=== PATIENT | female | born 1935 | race Caucasian/White ===

== ENCOUNTER 2017-04-27 18:13 | Inpatient (IN) | payer MEDICARE, OTHER ==
[~2017-04-27] VITALS: Ht 170.2 cm; Wt 91.0 kg
[2017-04-27 18:23] VITALS: BP 201/116; PULSE 111; RESP 20; O2SAT 100
--- NOTE | 2017-04-27 18:41 | PD ---
HPI Chief Complaint: Altered Mental Status Time Seen by Provider: 18:27 Travel History International Travel<30 days: No Contact w/Intl Traveler<30days: No Traveled to known affect area: No History of Present Illness HPI 81- year old female brought to the ED by EVAC. Per EVAC the patient was found by her on the floor of the hotel. They report the said that the patient has not been feeling well for the past three days. Upon arrival EVAC reports that there was vomit all over the bed and the floor. The patient has a fever of 100.5, is combative and altered. The patient currently is unable to answer any questions. Per EVAC the patient's is on his way who will be able to answer more questions. [facility] Social History Alcohol Use: No Tobacco Use: No Substance Use: No Allergies-Medications (Allergen,Severity, Reaction): Coded Allergies: Unable to Assess (Verified Allergy, Unknown, 04/27/17) Reported Meds & Prescriptions Reported Meds & Active Scripts Active Reported Tramadol (Tramadol HCl) 50 Mg Tab 50 Mg PO Q8H PRN Aspirin 81 Mg Chew 81 Mg CHEW DAILY Hydrochlorothiazide 25 Mg Tab 25 Mg PO DAILY Lisinopril 40 Mg Tab 40 Mg PO DAILY Review of Systems ROS Limitations: Altered Mental Status, Combative General / Constitutional: Positive: Fever Eyes: No: Visual changes Gastrointestinal: Positive: Vomiting Physical Exam Exam Limitations: Altered Mental Status, Uncooperative, Combative Narrative GENERAL: SKIN: Warm and dry. HEAD: Atraumatic. Normocephalic. EYES: Pupils equal and round. No scleral icterus. No injection or drainage. ENT: No nasal bleeding or discharge. Mucous membranes pink and moist. Tongue is midline NECK: Trachea midline. No JVD. CARDIOVASCULAR: Regular rate and rhythm. RESPIRATORY: No accessory muscle use. Clear to auscultation. Breath sounds equal bilaterally. GASTROINTESTINAL: Abdomen soft, non-tender, nondistended. Hepatic and splenic margins not palpable. MUSCULOSKELETAL: Extremities without clubbing, cyanosis, or edema. No obvious deformities. 2+ pulses bilaterally. NEUROLOGICAL: Awake and alert but not oriented. No obvious cranial nerve deficits. Motor grossly within normal limits. Five out of 5 muscle strength in the arms and legs. Normal speech. PSYCHIATRIC: Combative, altered mental status, insight and judgment not present. Data Data Last Documented VS Vital Signs Date Time Temp Pulse Resp B/P (MAP) Pulse Ox O2 Delivery O2 Flow Rate FiO2 04/27/17 21:38 114 22 194/91 (125) Nasal Cannula 2.00 04/27/17 20:31 100.8 98 Orders Orders Electrocardiogram (04/27/17 18:27) Complete Blood Count With Diff (04/27/17 18:27) Comprehensive Metabolic Panel (04/27/17 18:27) Ckmb (Isoenzyme) Profile (04/27/17 18:27) Troponin I (04/27/17 18:27) Prothrombin Time / Inr (Pt) (04/27/17 18:27) Act Partial Throm Time (Ptt) (04/27/17 18:27) Blood Culture (04/27/17 18:27) Urinalysis - C+S If Indicated (04/27/17 18:27) Magnesium (Mg) (04/27/17 18:27) Thyroid Stimulating Hormone (04/27/17 18:27) Chest, Single Ap (04/27/17 18:27) Ct Brain W/O Iv Contrast(Rout) (04/27/17 18:27) Iv Access Insert/Monitor (04/27/17 18:27) Ecg Monitoring (04/27/17 18:27) Oximetry (04/27/17 18:27) Drug Screen, Random Urine (04/27/17 18:27) Alcohol (Ethanol) (04/27/17 18:27) Salicylates (Aspirin) (04/27/17 18:27) Tylenol (Acetaminophen) (04/27/17 18:27) Lactic Acid Sepsis Protocol (04/27/17 18:51) Sodium Chlor 0.9% 1000 Ml Inj (Ns 1000 M (04/27/17 18:52) Lorazepam Inj (Ativan Inj) (04/27/17 19:15) Cath For Specimen (04/27/17 19:29) Sodium Chlor 0.9% 1000 Ml Inj (Ns 1000 M (04/27/17 19:47) Sodium Chlor 0.9% 1000 Ml Inj (Ns 1000 M (04/27/17 19:47) Bedside Glucose GILLIAN.AC&HS (04/27/17 19:46) Haloperidol Inj (Haldol Inj) (04/27/17 20:00) Acetaminophen Supp (Tylenol Supp) (04/27/17 20:00) Piperacil-Tazo 3.375 Gm Premix (Zosyn 3. (04/27/17 20:00) Vancomycin Inj (Vancomycin Inj) (04/27/17 20:00) CKMB (04/27/17 18:40) CKMB% (04/27/17 18:40) Ct Abd/Pel W/O Iv Contrast (04/27/17 ) Urinary Catheter Insert/Apply (04/27/17 21:13) Hydralazine Inj (Apresoline Inj) (04/27/17 22:00) Admit Order (Ed Use Only) (04/27/17 21:56) Labs Laboratory Tests Test 04/27/17 18:40 04/27/17 18:55 04/27/17 19:40 White Blood Count 12.0 TH/MM3 Red Blood Count 4.28 MIL/MM3 Hemoglobin 11.2 GM/DL Hematocrit 36.4 % Mean Corpuscular Volume 84.9 FL Mean Corpuscular Hemoglobin 26.1 PG Mean Corpuscular Hemoglobin Concent 30.8 % Red Cell Distribution Width 17.0 % Platelet Count 309 TH/MM3 Mean Platelet Volume 8.8 FL Neutrophils (%) (Auto) 85.6 % Lymphocytes (%) (Auto) 9.2 % Monocytes (%) (Auto) 4.6 % Eosinophils (%) (Auto) 0.0 % Basophils (%) (Auto) 0.6 % Neutrophils # (Auto) 10.3 TH/MM3 Lymphocytes # (Auto) 1.1 TH/MM3 Monocytes # (Auto) 0.6 TH/MM3 Eosinophils # (Auto) 0.0 TH/MM3 Basophils # (Auto) 0.1 TH/MM3 CBC Comment DIFF FINAL Differential Comment Prothrombin Time 10.9 SEC Prothromb Time International Ratio 1.0 RATIO Activated Partial Thromboplast Time 22.8 SEC Blood Urea Nitrogen 23 MG/DL Creatinine 2.25 MG/DL Random Glucose 129 MG/DL Total Protein 7.5 GM/DL Albumin 3.7 GM/DL Calcium Level 9.9 MG/DL Magnesium Level 2.0 MG/DL Alkaline Phosphatase 85 U/L Aspartate Amino Transf (AST/SGOT) 30 U/L Alanine Aminotransferase (ALT/SGPT) 14 U/L Total Bilirubin 0.5 MG/DL Sodium Level 139 MEQ/L Potassium Level 4.8 MEQ/L Chloride Level 103 MEQ/L Carbon Dioxide Level 23.7 MEQ/L Anion Gap 12 MEQ/L Estimat Glomerular Filtration Rate 21 ML/MIN Total Creatine Kinase 192 U/L Creatine Kinase MB 1.6 NG/ML Troponin I 0.16 NG/ML Thyroid Stimulating Hormone 3rd Gen 0.851 uIU/ML Salicylates Level LESS THAN 1.7 MG/DL Acetaminophen Level LESS THAN 2.0 MCG/ML Ethyl Alcohol Level LESS THAN 3 MG/DL Lactic Acid Level 3.2 mmol/L Urine Color YELLOW Urine Turbidity CLEAR Urine pH 7.5 Urine Specific [place] 1.017 Urine Protein 300 mg/dL Urine Glucose (UA) NEG mg/dL Urine Ketones 40 mg/dL Urine Occult Blood SMALL Urine Nitrite NEG Urine Bilirubin NEG Urine Urobilinogen LESS THAN 2.0 MG/DL Urine Leukocyte Esterase NEG Urine RBC 1 /hpf Urine WBC LESS THAN 1 /hpf Urine Bacteria RARE /hpf Urine Hyaline Casts 2 /lpf Urine Mucus FEW /lpf Microscopic Urinalysis Comment CULT NOT INDICATED Urine Opiates Screen NEG Urine Barbiturates Screen NEG Urine Amphetamines Screen NEG Urine Benzodiazepines Screen NEG Urine Cocaine Screen NEG Urine Cannabinoids Screen NEG MDM Medical Decision Making Medical Screen Exam Complete: Yes Emergency Medical Condition: Yes Medical Record Reviewed: Yes Interpretation(s) CBC & BMP Diagram 04/27/17 18:40 Total Protein 7.5, Albumin 3.7, Calcium Level 9.9, Magnesium Level 2.0, Alkaline Phosphatase 85, Aspartate Amino Transf (AST/SGOT) 30, Alanine Aminotransferase (ALT/SGPT) 14, Total Bilirubin 0.5 lactic acid in the 3s CT head showed no sign of acute disease CXR showed no acute disease troponin elevated CK WNL Differential Diagnosis Syncope versus UTI versus AMS versus Stroke versus Sepsis versus KS versus electrolyte abnormality Narrative Course 81-year-old female that presents to the ED for evaluation of altered mental status. Patient was properly examined and was found to have signs and symptoms consistent with possible sepsis. Patient is very altered and uncooperative. Patient had to be sedated. My attending Dr. Diaz and Dr. Gomez evaluated the patient with me and agrees with plan. was able to calm and give us information about the patient being altered for the past 3 days but today having this fall but exacerbated adulteration agitation. 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 She was found to have a high fever. Alert and this didn't have any other information that she has a history of high blood pressure. Labs and imaging were done and labs and imaging so far have shown severe sepsis. Patient was given IV fluids and antibiotics as per my attendings recommendations. Imaging showed Sepsis Criteria SIRS Criteria (2 or more): Temp > 100.9 or < 96.8, Heart rate over 90, WBC > 40238, < 4000 or > 10% bands Sepsis Criteria (SIRS+source): Infect source susp/known Severe Sepsis (+one): Lactate >2 Criteria Outcome: Meets severe sepsis criteria Diagnosis Primary Impression: Sepsis Qualified Codes: A41.9 - Sepsis, unspecified organism Additional Impressions: Altered mental status Qualified Codes: R41.82 - Altered mental status, unspecified UTI (urinary tract infection) Qualified Codes: N30.00 - Acute cystitis without hematuria Elevated troponin José Miguel Guerin Apr 27, 2017 18:41
[2017-04-27] MEDS ORDERED: SODIUM CHLOR 0.9% 1000 ML INJ 1,000 ML IV SCH ×3 (18:52→19:47)
[2017-04-27 19:14] LABS: AUTOMATED NEUTROPHIL # 10.3 TH/MM3 (1.8-7.7); BASOPHIL # 0.1 TH/MM3 (0-0.2); BASOPHIL % 0.6 % (0.0-2.0); HEMATOCRIT 36.4 % (35.0-46.0); LYMPH % 9.2 % (9.0-44.0); LYMPHOCYTE # 1.1 TH/MM3 (1.0-4.8); MEAN CELL VOLUME 84.9 FL (80.0-100.0); MEAN CORPUSCULAR HEMOGLOBIN 26.1 PG (27.0-34.0); MEAN CORPUSCULAR HGB CONC 30.8 % (32.0-36.0); MONO % 4.6 % (0.0-8.0); NEUT % 85.6 % (16.0-70.0); PLATELET COUNT 309 TH/MM3 (150-450); RED BLOOD COUNT 4.28 MIL/MM3 (4.00-5.30)
[2017-04-27 19:15] LABS: HEMO FLAGS DIFF FINAL
[2017-04-27] MEDS ORDERED: LORazepam 2 MG/ML VIAL IV PUSH ONE (19:15)
[2017-04-27 19:35] LABS: APTT (PATIENT) 22.8 SEC (24.3-30.1); PROTHROMBIN TIME - PATIENT 10.9 SEC (9.8-11.6)
--- NOTE | 2017-04-27 19:42 | PD ---
Physical Exam Narrative I, Dr. Diaz, have reviewed the advance practice practitioner's documentation and am in agreement, met with the patient face to face, made the diagnosis, and the medical decision making was done by me. *My assessment and Findings: AMS secondary to UTI vs. electrolyte abnormality vs. ICH vs. hypertensive emergency 81yo F with unknown PMH was brought in for AMS for 3 days. As per EVAC, pt's was in hotel room with her and did not bring her in until she fell out of bed today. Pt has a right forehead hematoma. Pt is mumbling and not answering questions. Moving all extremities. is not here and unable to obtain further history. Pt has not been here before. BP was elevated but pt was moving around and will need to be repeated. Pt is maintaining airway and saturating at 100% on RA. Ativan 1mg IV given for CT. Pt was seen at end of my shift and sign out to next team to follow up work up and disposition. Data Data Last Documented VS Vital Signs Date Time Temp Pulse Resp B/P (MAP) Pulse Ox O2 Delivery O2 Flow Rate FiO2 04/27/17 21:38 114 22 194/91 (125) Nasal Cannula 2.00 04/27/17 20:31 100.8 98 Orders Orders Electrocardiogram (04/27/17 18:27) Complete Blood Count With Diff (04/27/17 18:27) Comprehensive Metabolic Panel (04/27/17 18:27) Ckmb (Isoenzyme) Profile (04/27/17 18:27) Troponin I (04/27/17 18:27) Prothrombin Time / Inr (Pt) (04/27/17 18:27) Act Partial Throm Time (Ptt) (04/27/17 18:27) Blood Culture (04/27/17 18:27) Urinalysis - C+S If Indicated (04/27/17 18:27) Magnesium (Mg) (04/27/17 18:27) Thyroid Stimulating Hormone (04/27/17 18:27) Chest, Single Ap (04/27/17 18:27) Ct Brain W/O Iv Contrast(Rout) (04/27/17 18:27) Iv Access Insert/Monitor (04/27/17 18:27) Ecg Monitoring (04/27/17 18:27) Oximetry (04/27/17 18:27) Drug Screen, Random Urine (04/27/17 18:27) Alcohol (Ethanol) (04/27/17 18:27) Salicylates (Aspirin) (04/27/17 18:27) Tylenol (Acetaminophen) (04/27/17 18:27) Lactic Acid Sepsis Protocol (04/27/17 18:51) Sodium Chlor 0.9% 1000 Ml Inj (Ns 1000 M (04/27/17 18:52) Lorazepam Inj (Ativan Inj) (04/27/17 19:15) Cath For Specimen (04/27/17 19:29) Sodium Chlor 0.9% 1000 Ml Inj (Ns 1000 M (04/27/17 19:47) Sodium Chlor 0.9% 1000 Ml Inj (Ns 1000 M (04/27/17 19:47) Bedside Glucose GILLIAN.AC&HS (04/27/17 19:46) Haloperidol Inj (Haldol Inj) (04/27/17 20:00) Acetaminophen Supp (Tylenol Supp) (04/27/17 20:00) Piperacil-Tazo 3.375 Gm Premix (Zosyn 3. (04/27/17 20:00) Vancomycin Inj (Vancomycin Inj) (04/27/17 20:00) CKMB (04/27/17 18:40) CKMB% (04/27/17 18:40) Ct Abd/Pel W/O Iv Contrast (04/27/17 ) Urinary Catheter Insert/Apply (04/27/17 21:13) Hydralazine Inj (Apresoline Inj) (04/27/17 22:00) Admit Order (Ed Use Only) (04/27/17 21:56) Labs Laboratory Tests Test 04/27/17 18:40 04/27/17 18:55 04/27/17 19:40 04/27/17 21:45 White Blood Count 12.0 TH/MM3 Red Blood Count 4.28 MIL/MM3 Hemoglobin 11.2 GM/DL Hematocrit 36.4 % Mean Corpuscular Volume 84.9 FL Mean Corpuscular Hemoglobin 26.1 PG Mean Corpuscular Hemoglobin Concent 30.8 % Red Cell Distribution Width 17.0 % Platelet Count 309 TH/MM3 Mean Platelet Volume 8.8 FL Neutrophils (%) (Auto) 85.6 % Lymphocytes (%) (Auto) 9.2 % Monocytes (%) (Auto) 4.6 % Eosinophils (%) (Auto) 0.0 % Basophils (%) (Auto) 0.6 % Neutrophils # (Auto) 10.3 TH/MM3 Lymphocytes # (Auto) 1.1 TH/MM3 Monocytes # (Auto) 0.6 TH/MM3 Eosinophils # (Auto) 0.0 TH/MM3 Basophils # (Auto) 0.1 TH/MM3 CBC Comment DIFF FINAL Differential Comment Prothrombin Time 10.9 SEC Prothromb Time International Ratio 1.0 RATIO Activated Partial Thromboplast Time 22.8 SEC Blood Urea Nitrogen 23 MG/DL Creatinine 2.25 MG/DL Random Glucose 129 MG/DL Total Protein 7.5 GM/DL Albumin 3.7 GM/DL Calcium Level 9.9 MG/DL Magnesium Level 2.0 MG/DL Alkaline Phosphatase 85 U/L Aspartate Amino Transf (AST/SGOT) 30 U/L Alanine Aminotransferase (ALT/SGPT) 14 U/L Total Bilirubin 0.5 MG/DL Sodium Level 139 MEQ/L Potassium Level 4.8 MEQ/L Chloride Level 103 MEQ/L Carbon Dioxide Level 23.7 MEQ/L Anion Gap 12 MEQ/L Estimat Glomerular Filtration Rate 21 ML/MIN Total Creatine Kinase 192 U/L Creatine Kinase MB 1.6 NG/ML Troponin I 0.16 NG/ML Thyroid Stimulating Hormone 3rd Gen 0.851 uIU/ML Salicylates Level LESS THAN 1.7 MG/DL Acetaminophen Level LESS THAN 2.0 MCG/ML Ethyl Alcohol Level LESS THAN 3 MG/DL Lactic Acid Level 3.2 mmol/L 2.7 mmol/L Urine Color YELLOW Urine Turbidity CLEAR Urine pH 7.5 Urine Specific [place] 1.017 Urine Protein 300 mg/dL Urine Glucose (UA) NEG mg/dL Urine Ketones 40 mg/dL Urine Occult Blood SMALL Urine Nitrite NEG Urine Bilirubin NEG Urine Urobilinogen LESS THAN 2.0 MG/DL Urine Leukocyte Esterase NEG Urine RBC 1 /hpf Urine WBC LESS THAN 1 /hpf Urine Bacteria RARE /hpf Urine Hyaline Casts 2 /lpf Urine Mucus FEW /lpf Microscopic Urinalysis Comment CULT NOT INDICATED Urine Opiates Screen NEG Urine Barbiturates Screen NEG Urine Amphetamines Screen NEG Urine Benzodiazepines Screen NEG Urine Cocaine Screen NEG Urine Cannabinoids Screen NEG MDM Supervised Visit with SRI: Yes Diagnosis Primary Impression: Altered mental status Qualified Codes: R41.82 - Altered mental status, unspecified Blanca Diaz DO Apr 27, 2017 19:42
[2017-04-27 19:46] LABS: ALKALINE PHOSPHATASE 85 U/L (45-117); ALT (GPT) 14 U/L (10-53); ANION GAP 12 MEQ/L (5-15); AST (GOT) 30 U/L (15-37); BICARBONATE 23.7 MEQ/L (21.0-32.0); BLOOD UREA NITROGEN 23 MG/DL (7-18); CHLORIDE 103 MEQ/L (98-107); CREATINE KINASE 192 U/L (26-192); GLOMERULAR FILTRATION RATE 21 ML/MIN (>89); POTASSIUM 4.8 MEQ/L (3.5-5.1); SODIUM (NA) 139 MEQ/L (136-145); TOTAL BILIRUBIN ADULT 0.5 MG/DL (0.2-1.0)
[2017-04-27 19:48] LABS: ACETAMINOPHEN LESS THAN 2.0 MCG/ML (10.0-30.0); ALCOHOL LESS THAN 3 MG/DL (0-5)
--- NOTE | 2017-04-27 19:53 | RADRPT ---
EXAM DATE/TIME: 04/27/2017 19:26 [facility] COMPARISON: No previous studies available for comparison. INDICATIONS : Fever. Altered mental status. MEDICAL HISTORY : Unobtainable. SURGICAL HISTORY : Unobtainable. ENCOUNTER: Initial ACUITY: 1 day PAIN SCORE: Non-responsive. LOCATION: Bilateral chest FINDINGS: Portable AP view of the chest demonstrates a normal-sized cardiac silhouette calcification of the aor ta. No effusion, consolidation, or pneumothorax is identified. Right hemidiaphragm has a lobulated co ntour. Bones and soft tissues demonstrate no acute finding. CONCLUSION: No acute cardiopulmonary abnormality is identified. Jerome Smith MD on April 27, 2017 at 19:51 Board Certified Radiologist. This report was verified electronically.
[2017-04-27 20:00] LABS: CKMB 1.6 NG/ML (0.5-3.6)
[2017-04-27] MEDS ORDERED: VANCOMYCIN INJ 1,150 MG in SODIUM CHLOR 0.9% 250 ML INJ 250 ML IV ONE (20:00)
[2017-04-27] MEDS ORDERED: ACETAMINOPHEN 650 MG SUPP RECTAL ONE (20:00)
[2017-04-27] MEDS ORDERED: HALOPERIDOL LACTATE 5 MG/ML AMP IM ONE (20:00)
[2017-04-27] MEDS ORDERED: PIPERACIL-TAZO 3.375 GM PREMIX 50 ML IV ONE (20:00)
--- NOTE | 2017-04-27 20:08 | RADRPT ---
EXAM DATE/TIME: 04/27/2017 19:22 [facility] COMPARISON: No previous studies available for comparison. INDICATIONS : Altered mental status. RADIATION DOSE: 56.35 CTDIvol (mGy) ; Patient motion MEDICAL HISTORY : Non-responsive. SURGICAL HISTORY : Non-responsive. ENCOUNTER: Initial ACUITY: 1 day PAIN SCALE: Non-responsive LOCATION: cranial TECHNIQUE: Multiple contiguous axial images were obtained of the head. Using automated exposure control and adj ustment of the mA and/or kV according to patient size, radiation dose was kept as low as reasonably a chievable to obtain optimal diagnostic quality images. DICOM format image data is available electro nically for review and comparison. FINDINGS: CEREBRUM: There is generalized atrophy. Ventricles are normal in size. There is moderate to severe periventricu lar white matter low attenuation. No evidence of midline shift, mass lesion, hemorrhage or acute infa rction. No extra-axial fluid collections are seen. POSTERIOR FOSSA: The cerebellum and brainstem demonstrate no acute finding. The 4th ventricle is midline. The cerebe llopontine angle is unremarkable. EXTRACRANIAL: Visualized sinuses are clear SKULL: The calvaria is intact. No evidence of skull fracture. CONCLUSION: 1. No acute intracranial abnormality is identified. 2. Chronic changes include generalized atrophy and moderate to severe periventricular white matter lo w attenuation characteristic of chronic microvascular ischemia. Jerome Smith MD on April 27, 2017 at 20:04 Board Certified Radiologist. This report was verified electronically.
[2017-04-27 20:22] LABS: BACTERIA, URINE RARE /hpf; BLOOD, URINE SMALL (NEG); COMMENT (UR) CULT NOT INDICATED; CULTURE IF INDICATED CULT NOT INDICATED; GLUCOSE,URINE NEG (NEG); HYALINE CAST, URINE 2 /lpf (RARE); KETONE, URINE 40 mg/dL (NEG); MUCUS URINE FEW /lpf (OCC); NITRITE,URINE NEG (NEG); PH, URINE 7.5 (5.0-8.5); URINE COLOR YELLOW (YELLW/STRAW)
[2017-04-27 20:31] VITALS: BP 197/90; PULSE 108; RESP 20; TEMP 100.8; O2SAT 98
[2017-04-27 21:14] LABS: LACTIC ACID GHOST NOT REPORTABLE
--- NOTE | 2017-04-27 21:31 | RADRPT ---
EXAM DATE/TIME: 04/27/2017 20:52 [facility] COMPARISON: No previous studies available for comparison. INDICATIONS : Patient has abdominal pain. ORAL CONTRAST: No oral contrast ingested. RADIATION DOSE: 14.52 CTDIvol (mGy) MEDICAL HISTORY : None SURGICAL HISTORY : None. ENCOUNTER: Initial ACUITY: 1 day PAIN SCALE: 0/10 LOCATION: abdomen TECHNIQUE: Volumetric scanning of the abdomen and pelvis was performed. Using automated exposure control and ad justment of the mA and/or kV according to patient size, radiation dose was kept as low as reasonably achievable to obtain optimal diagnostic quality images. DICOM format image data is available electro nically for review and comparison. FINDINGS: There is respiratory motion artifact. LOWER LUNGS: The visualized lower lungs are clear. LIVER: Homogeneous density without lesion. There is no dilation of the biliary tree. There are clips in th e gallbladder fossa. SPLEEN: Normal size without lesion. PANCREAS: No acute abnormality. KIDNEYS: Left kidney is atrophic. No hydronephrosis, mass, or stone is identified. ADRENAL GLANDS: Within normal limits. VASCULAR: There is severe atherosclerotic disease with tortuous abdominal aorta. There is an infrarenal aneurys m that has been treated with an endoluminal stent graft which extends from a juxtarenal location into the common iliac arteries bilaterally. There is a right renal stent. Aneurysm sac measures 6.4 x 5.3 cm. BOWEL/MESENTERY: The stomach, small bowel, and colon demonstrate no acute abnormality. There is no free intraperitone al air or fluid. There is sigmoid diverticulosis. A small hiatal hernia is present. ABDOMINAL WALL: Within normal limits. RETROPERITONEUM: There is no lymphadenopathy. BLADDER: Decompressed with a Martínez catheter present. REPRODUCTIVE: Uterus is absent. INGUINAL: There is no lymphadenopathy or hernia. There are clips in the inguinal regions bilaterally. MUSCULOSKELETAL: There is levoscoliosis with severe multilevel degenerative disc disease. Sclerosis is present adjacen t to the sacroiliac joints bilaterally. CONCLUSION: 1. No acute finding is identified to explain the abdominal pain. 2. 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 Aneurysm sac size measures 6.4 x 5.5 cm. This could be compared to prior imagi ng studies to assess for change. 3. Atrophic left kidney likely related to renal vascular disease. 4. Nonacute findings include small hiatal hernia and sigmoid diverticulosis. Jerome Smith MD on April 27, 2017 at 21:24 Board Certified Radiologist. This report was verified electronically.
[2017-04-27 21:38] VITALS: BP 194/91; PULSE 114; RESP 22
[2017-04-27] MEDS ORDERED: ASPI81CH CHEW (21:43)
[2017-04-27] MEDS ORDERED: TRAM50TA PO (21:43)
[2017-04-27] MEDS ORDERED: HYDR25TA5 PO (21:43)
[2017-04-27] MEDS ORDERED: LISI40TA PO (21:43)
[2017-04-27] MEDS ORDERED: hydrALAZINE HCL 20 MG/ML VIAL IV PUSH ONE (22:00)
[2017-04-27 22:25] VITALS: BP 184/86; PULSE 114; TEMP 102.2
[2017-04-27] MEDS ORDERED: SODIUM CHLOR 0.9% 1000 ML INJ 1,000 ML IV ONE ×2 (22:30)
[2017-04-27] MEDS ORDERED: SODIUM CHLORIDE 0.9% FLUSH 10 ML FLUSH IV FLUSH PRN (22:30)
[2017-04-27] MEDS ORDERED: CHLORHEXIDINE GLUCONATE 2 % 1 PACK (2 CLOTHS) TOP PRN (22:30)
[2017-04-27] MEDS ORDERED: Vancomycin Consult Pharmacy 1 EA OTHER SCH (22:30)
[2017-04-27] MEDS ORDERED: RESP: ALBUTEROL 2.5 MG/IPRATROPIUM 0.5 MG NEB (PRN) INH (22:30)
[2017-04-27] MEDS ORDERED: SODIUM CHLOR 0.9% 1000 ML INJ 400 ML IV ONE (22:30)
[2017-04-27] MEDS ORDERED: MISCELLANEOUS NURSING INFORMATION XX SCH (22:30)
[2017-04-27] MEDS ORDERED: ACETAMINOPHEN 1000 MG/100 ML VIAL IV PRN (22:45)
[2017-04-27] MEDS ORDERED: CEFEPIME INJ 2,000 MG in SODIUM CHLORIDE 0.9% INJ 100 ML IV SCH (23:00)
[2017-04-27] MEDS: SODIUM CHLOR 0.9% 1000 ML INJ 1,000 ML IV SCH (23:01)
[2017-04-27 23:28] LABS: LACTIC ACID,CSF 4.1 MMOL/L (0.0-3.0)
--- NOTE | 2017-04-27 23:33 | HHI.HP ---
HPI Service Critical Care Medicine Primary Care Physician Non-Staff Admission Diagnosis Altered mental status, severe sepsis, positive troponin Diagnosis: Travel History International Travel<30 Days: No Contact w/Intl Traveler <30 Da: No Traveled to Known Affected Are: No History of Present Illness 81- year old female brought by EVAC. Per EVAC the patient was found by her on the floor of the hotel room. They report the said that the patient has not been feeling well for the past three days. Upon arrival [facility]AC reports that there was vomit all over the bed and the floor. The patient has a fever of 100.5, is combative and altered. The patient currently is unable to answer any questions. Review of Systems ROS Unable to obtain due to altered mental status Past Family Social History Allergies: Coded Allergies: Unable to Assess (Verified Allergy, Unknown, 04/27/17) Past Medical History Unobtainable Past Surgical History Unobtainable Reported Medications Reported Meds & Active Scripts Active Reported Tramadol (Tramadol HCl) 50 Mg Tab 50 Mg PO Q8H PRN Aspirin 81 Mg Chew 81 Mg CHEW DAILY Hydrochlorothiazide 25 Mg Tab 25 Mg PO DAILY Lisinopril 40 Mg Tab 40 Mg PO DAILY Active Ordered Medications Current Medications Medications (Trade) Dose Ordered Sig/Pearl Route PRN Reason Start Time Stop Time Status Last Admin Dose Admin Sodium Chloride 1,000 ml @ 75 mls/hr [id number] IV 04/27/17 22:30 04/27/17 23:01 Sodium Chloride (NS Flush) 2 ml UNSCH PRN IV FLUSH FLUSH AFTER USING IV ACCESS 04/27/17 22:30 Sodium Chloride (NS Flush) 2 ml BID IV FLUSH 04/28/17 09:00 Famotidine (Pepcid Inj) 20 mg Q12HR IV PUSH 04/28/17 09:00 Albuterol/ Ipratropium (Duoneb Neb) 1 ampule Q2HR NEB PRN INH WHEEZING 04/27/17 22:30 Heparin Sodium (Porcine) (Heparin Inj) 5,000 units Q12H SQ 04/27/17 22:30 04/28/17 01:00 Pharmacy Profile Note 0 ml @ 0 mls/hr UNSCH OTHER 04/27/17 22:30 Cefepime HCl 2000 mg/Sodium Chloride 100 ml @ 200 mls/hr Q24H IV 04/27/17 23:00 04/27/17 23:17 Miscellaneous Information 1 [id number] XX 04/27/17 22:30 Chlorhexidine Gluconate (Chlorhexidine 2% Cloth) 3 pack Taper DAILY@04 TOP 04/28/17 04:00 04/24/18 03:59 Chlorhexidine Gluconate (Chlorhexidine 2% Cloth) 3 pack UNSCH PRN TOP HYGIENIC CARE 04/27/17 22:30 Acetaminophen (Ofirmev 1000 Mg/ 100 ml Inj) 1,000 mg Q6H PRN IV FEVER 04/27/17 22:45 04/28/17 01:00 Ampicillin Sodium (Ampicillin Inj) 1,000 mg Q6H IM 04/28/17 00:00 04/28/17 00:00 Family History Unobtainable Social History Unobtainable Physical Exam Vital Signs Vital Signs Date Time Temp Pulse Resp B/P (MAP) Pulse Ox O2 Delivery O2 Flow Rate FiO2 04/27/17 22:25 102.2 114 184/86 (118) 04/27/17 21:38 114 22 194/91 (125) Nasal Cannula 2.00 04/27/17 20:31 100.8 108 20 197/90 (125) 98 Nasal Cannula 2.00 04/27/17 18:23 111 20 201/116 (144) 100 Physical Exam GENERAL: Elderly woman ill appearing, altered extremely lethargic SKIN: Warm and dry. HEAD: Normocephalic. EYES: No scleral icterus. No injection or drainage. NECK: Supple, trachea midline. No JVD or lymphadenopathy. CARDIOVASCULAR: Regular rate and rhythm without murmurs, gallops, or rubs. RESPIRATORY: Breath sounds equal bilaterally. No accessory muscle use. GASTROINTESTINAL: Abdomen soft, non-tender, nondistended. MUSCULOSKELETAL: No cyanosis, or edema. BACK: Nontender without obvious deformity. NEURO EXAM: GCS: M5 V4 E3 Mental Status: The patient is lethargic and agitated Cranial Nerves: Pupils are round, reactive to light. Reflexes: Biceps, patellar, and Achilles are 2/4 bilaterally. No clonus. Motor: Good muscle tone. Strength is 5/5 bilaterally. Laboratory Laboratory Tests Test 04/27/17 18:40 04/27/17 18:55 04/27/17 19:40 04/27/17 21:45 White Blood Count 12.0 Red Blood Count 4.28 Hemoglobin 11.2 Hematocrit 36.4 Mean Corpuscular Volume 84.9 Mean Corpuscular Hemoglobin 26.1 Mean Corpuscular Hemoglobin Concent 30.8 Red Cell Distribution Width 17.0 Platelet Count 309 Mean Platelet Volume 8.8 Neutrophils (%) (Auto) 85.6 Lymphocytes (%) (Auto) 9.2 Monocytes (%) (Auto) 4.6 Eosinophils (%) (Auto) 0.0 Basophils (%) (Auto) 0.6 Neutrophils # (Auto) 10.3 Lymphocytes # (Auto) 1.1 Monocytes # (Auto) 0.6 Eosinophils # (Auto) 0.0 Basophils # (Auto) 0.1 CBC Comment DIFF FINAL Differential Comment Prothrombin Time 10.9 Prothromb Time International Ratio 1.0 Activated Partial Thromboplast Time 22.8 Blood Urea Nitrogen 23 Creatinine 2.25 Random Glucose 129 Total Protein 7.5 Albumin 3.7 Calcium Level 9.9 Magnesium Level 2.0 Alkaline Phosphatase 85 Aspartate Amino Transf (AST/SGOT) 30 Alanine Aminotransferase (ALT/SGPT) 14 Total Bilirubin 0.5 Sodium Level 139 Potassium Level 4.8 Chloride Level 103 Carbon Dioxide Level 23.7 Anion Gap 12 Estimat Glomerular Filtration Rate 21 Total Creatine Kinase 192 Creatine Kinase MB 1.6 Troponin I 0.16 Thyroid Stimulating Hormone 3rd Gen 0.851 Salicylates Level LESS THAN 1.7 Acetaminophen Level LESS THAN 2.0 Ethyl Alcohol Level LESS THAN 3 Lactic Acid Level 3.2 2.7 Urine Color YELLOW Urine Turbidity CLEAR Urine pH 7.5 Urine Specific [place] 1.017 Urine Protein 300 Urine Glucose (UA) NEG Urine Ketones 40 Urine Occult Blood SMALL Urine Nitrite NEG Urine Bilirubin NEG Urine Urobilinogen LESS THAN 2.0 Urine Leukocyte Esterase NEG Urine RBC 1 Urine WBC LESS THAN 1 Urine Bacteria RARE Urine Hyaline Casts 2 Urine Mucus FEW Microscopic Urinalysis Comment CULT NOT INDICATED Urine Opiates Screen NEG Urine Barbiturates Screen NEG Urine Amphetamines Screen NEG Urine Benzodiazepines Screen NEG Urine Cocaine Screen NEG Urine Cannabinoids Screen NEG Test 04/27/17 22:40 04/27/17 23:20 CSF Glucose 72 CSF Lactic Acid 4.1 CSF Total Protein 63.6 Date/Time Source Procedure Growth Status 04/27/17 18:45 Blood Peripheral Aerobic Blood Culture Pending Received 04/27/17 18:45 Blood Peripheral Anaerobic Blood Culture Pending Received 04/27/17 22:40 Cerebral Spinal Fluid Lumbar Puncture Gram Stain Pending Received 04/27/17 22:40 Cerebral Spinal Fluid Lumbar Puncture CSF Culture Pending Received Result Diagram: 04/27/170 04/27/17 1840 Caprini VTE Risk Assessment Caprini VTE Risk Assessment: Mod/High Risk (score >= 2) Caprini Risk Assessment Model Point Value = 1 Point Value = 2 Point Value = 3 Point Value = 5 Age 41-60 Minor surgery BMI > 25 kg/m2 Swollen legs Varicose veins or History of unexplained or recurrent spontaneous Oral contraceptives or hormone replacement Sepsis (< 1 month) Serious lung disease, including pneumonia (< 1 month) Abnormal pulmonary function Acute myocardial infarction Congestive heart failure (< 1 month) History of inflammatory bowel disease Medical patient at bed rest Age 61-74 Arthroscopic surgery Major open surgery (> 45 min) Laparoscopic surgery (> 45 min) Malignancy Confined to bed (> 72 hours) Immobilizing plaster cast Central venous access Age >= 75 History of VTE Family history of VTE Factor V Leiden Prothrombin [id number] Lupus anticoagulant Anticardiolipin antibodies Elevated serum homocysteine Heparin-induced thrombocytopenia Other congenital or acquired thrombophilia Stroke (< 1 month) Elective arthroplasty Hip, pelvis, or leg fracture Acute spinal cord injury (< 1 month) Prophylaxis Regimen Total Risk Factor Score Risk Level Prophylaxis Regimen 0-1 Low Early ambulation 2 Moderate Order ONE of the following: *Sequential Compression Device (SCD) *Heparin 5000 units SQ BID 3-4 Higher Order ONE of the following medications: *Heparin 5000 units SQ TID *Enoxaparin/Lovenox 40 mg SQ daily (WT < 150 kg, CrCl > 30 mL/min) *Enoxaparin/Lovenox 30 mg SQ daily (WT < 150 kg, CrCl > 10-29 mL/min) *Enoxaparin/Lovenox 30 mg SQ BID (WT < 150 kg, CrCl > 30 mL/min) AND/OR *Sequential Compression Device (SCD) 5 or more Highest Order ONE of the following medications: *Heparin 5000 units SQ TID (Preferred with Epidurals) *Enoxaparin/Lovenox 40 mg SQ daily (WT < 150 kg, CrCl > 30 mL/min) *Enoxaparin/Lovenox 30 mg SQ daily (WT < 150 kg, CrCl > 10-29 mL/min) *Enoxaparin/Lovenox 30 mg SQ BID (WT < 150 kg, CrCl > 30 mL/min) AND *Sequential Compression Device (SCD) Assessment and Plan Assessment and Plan Altered mental status - Sepsis/meningitis - Broad-spectrum antibiotic - CT head negative - De-escalate per sensitivity - Follow-up culture Hypertension - Hydralazine when necessary to keep SBP less than 160 - Hold home medications hydrochlorothiazide and lisinopril due to acute kidney injury BENITO - Febrile - Dehydration - Aggressive IV fluids resuscitation - Monitor creatinine and electrolytes - Strict I's and O's DVT GI prophylaxis - Teds SCDs - Subcutaneous heparin - Pepcid Critical Care: The total critical care time was 35 minutes. Time to perform other separately billable procedures was not included in the critical care time. Rob Santos MD Apr 27, 2017 11:33 pm
--- NOTE | 2017-04-27 23:33 | PD.PROCEDR ---
Procedure Note Procedure A time-out was completed verifying correct patient, procedure, site, positioning , and special equipment if applicable. The patient was placed in the LEFT lateral decubitus position in a semi- position with help from the nursing staff. The area was cleansed and draped in usual sterile fashion. 1% lidocaine was used anesthetize the surrounding skin area. A <20-gauge 3.5-inch> spinal needle was placed in the L3-L4 interspace. Clear cerebral spinal fluid was obtained and the opening pressure was noted to be 26. Four tubes were filled with 4 mL of CSF. These were sent for the usual tests, including 1 tube to be held for further analysis if needed. Estimated Blood Loss: 0ml The patient tolerated the procedure well and there were no complications. Rob Santos MD Apr 27, 2017 23:33
--- NOTE | 2017-04-27 23:40 | PD ---
Physical Exam Date Seen by Provider: Apr 27, 2017 Data Data Last Documented VS Vital Signs Date Time Temp Pulse Resp B/P (MAP) Pulse Ox O2 Delivery O2 Flow Rate FiO2 04/27/17 21:38 114 22 194/91 (125) Nasal Cannula 2.00 04/27/17 20:31 100.8 98 Orders Orders Electrocardiogram (04/27/17 18:27) Complete Blood Count With Diff (04/27/17 18:27) Comprehensive Metabolic Panel (04/27/17 18:27) Ckmb (Isoenzyme) Profile (04/27/17 18:27) Troponin I (04/27/17 18:27) Prothrombin Time / Inr (Pt) (04/27/17 18:27) Act Partial Throm Time (Ptt) (04/27/17 18:27) Blood Culture (04/27/17 18:27) Urinalysis - C+S If Indicated (04/27/17 18:27) Magnesium (Mg) (04/27/17 18:27) Thyroid Stimulating Hormone (04/27/17 18:27) Chest, Single Ap (04/27/17 18:27) Ct Brain W/O Iv Contrast(Rout) (04/27/17 18:27) Iv Access Insert/Monitor (04/27/17 18:27) Ecg Monitoring (04/27/17 18:27) Oximetry (04/27/17 18:27) Drug Screen, Random Urine (04/27/17 18:27) Alcohol (Ethanol) (04/27/17 18:27) Salicylates (Aspirin) (04/27/17 18:27) Tylenol (Acetaminophen) (04/27/17 18:27) Lactic Acid Sepsis Protocol (04/27/17 18:51) Sodium Chlor 0.9% 1000 Ml Inj (Ns 1000 M (04/27/17 18:52) Lorazepam Inj (Ativan Inj) (04/27/17 19:15) Cath For Specimen (04/27/17 19:29) Sodium Chlor 0.9% 1000 Ml Inj (Ns 1000 M (04/27/17 19:47) Sodium Chlor 0.9% 1000 Ml Inj (Ns 1000 M (04/27/17 19:47) Bedside Glucose GILLIAN.AC&HS (04/27/17 19:46) Haloperidol Inj (Haldol Inj) (04/27/17 20:00) Acetaminophen Supp (Tylenol Supp) (04/27/17 20:00) Piperacil-Tazo 3.375 Gm Premix (Zosyn 3. (04/27/17 20:00) Vancomycin Inj (Vancomycin Inj) (04/27/17 20:00) CKMB (04/27/17 18:40) CKMB% (04/27/17 18:40) Ct Abd/Pel W/O Iv Contrast (04/27/17 ) Urinary Catheter Insert/Apply (04/27/17 21:13) Hydralazine Inj (Apresoline Inj) (04/27/17 22:00) Admit Order (Ed Use Only) (04/27/17 21:56) Labs Laboratory Tests Test 04/27/17 18:40 04/27/17 18:55 04/27/17 19:40 04/27/17 21:45 White Blood Count 12.0 TH/MM3 Red Blood Count 4.28 MIL/MM3 Hemoglobin 11.2 GM/DL Hematocrit 36.4 % Mean Corpuscular Volume 84.9 FL Mean Corpuscular Hemoglobin 26.1 PG Mean Corpuscular Hemoglobin Concent 30.8 % Red Cell Distribution Width 17.0 % Platelet Count 309 TH/MM3 Mean Platelet Volume 8.8 FL Neutrophils (%) (Auto) 85.6 % Lymphocytes (%) (Auto) 9.2 % Monocytes (%) (Auto) 4.6 % Eosinophils (%) (Auto) 0.0 % Basophils (%) (Auto) 0.6 % Neutrophils # (Auto) 10.3 TH/MM3 Lymphocytes # (Auto) 1.1 TH/MM3 Monocytes # (Auto) 0.6 TH/MM3 Eosinophils # (Auto) 0.0 TH/MM3 Basophils # (Auto) 0.1 TH/MM3 CBC Comment DIFF FINAL Differential Comment Prothrombin Time 10.9 SEC Prothromb Time International Ratio 1.0 RATIO Activated Partial Thromboplast Time 22.8 SEC Blood Urea Nitrogen 23 MG/DL Creatinine 2.25 MG/DL Random Glucose 129 MG/DL Total Protein 7.5 GM/DL Albumin 3.7 GM/DL Calcium Level 9.9 MG/DL Magnesium Level 2.0 MG/DL Alkaline Phosphatase 85 U/L Aspartate Amino Transf (AST/SGOT) 30 U/L Alanine Aminotransferase (ALT/SGPT) 14 U/L Total Bilirubin 0.5 MG/DL Sodium Level 139 MEQ/L Potassium Level 4.8 MEQ/L Chloride Level 103 MEQ/L Carbon Dioxide Level 23.7 MEQ/L Anion Gap 12 MEQ/L Estimat Glomerular Filtration Rate 21 ML/MIN Total Creatine Kinase 192 U/L Creatine Kinase MB 1.6 NG/ML Troponin I 0.16 NG/ML Thyroid Stimulating Hormone 3rd Gen 0.851 uIU/ML Salicylates Level LESS THAN 1.7 MG/DL Acetaminophen Level LESS THAN 2.0 MCG/ML Ethyl Alcohol Level LESS THAN 3 MG/DL Lactic Acid Level 3.2 mmol/L 2.7 mmol/L Urine Color YELLOW Urine Turbidity CLEAR Urine pH 7.5 Urine Specific [place] 1.017 Urine Protein 300 mg/dL Urine Glucose (UA) NEG mg/dL Urine Ketones 40 mg/dL Urine Occult Blood SMALL Urine Nitrite NEG Urine Bilirubin NEG Urine Urobilinogen LESS THAN 2.0 MG/DL Urine Leukocyte Esterase NEG Urine RBC 1 /hpf Urine WBC LESS THAN 1 /hpf Urine Bacteria RARE /hpf Urine Hyaline Casts 2 /lpf Urine Mucus FEW /lpf Microscopic Urinalysis Comment CULT NOT INDICATED Urine Opiates Screen NEG Urine Barbiturates Screen NEG Urine Amphetamines Screen NEG Urine Benzodiazepines Screen NEG Urine Cocaine Screen NEG Urine Cannabinoids Screen NEG MDM Medical Record Reviewed: Yes Supervised Visit with SRI: Yes Narrative Course I, Dr. Gomez have reviewed the advance practice practitioner's documentation and am in agreement, met with the patient face to face, made the diagnosis, and the medical decision making was done by me. *My assessment and Findings: Sepsis, altered mental status, elevated troponin Patient was made to the interactive media director service, Dr. Santos performed a lumbar puncture while in ER. Patient has been pancultured, vancomycin as well as zosyn administered for sepsis Critical Care Narrative Aggregate critical care time was 30 minutes. Time to perform other separately billable procedures was not included in the critical care time. My time did not include minutes spent treating any other patients simultaneously or on activities that did not directly contribute to the patient's treatment. The services I provided to this patient were to treat and/or prevent clinically significant deterioration that could result in: , decompensation, deterioration I provided critical care services requiring my management, as noted below: Chart data review, documentation time, medication orders and management, vital sign assessments/reviewing monitor data, ordering and reviewing lab tests, ordering and interpreting/reviewing x-rays and diagnostic studies, care of the patient and discussion of the patient with the admitting physicians. Diagnosis Primary Impression: Sepsis Qualified Codes: A41.9 - Sepsis, unspecified organism Additional Impressions: Elevated troponin UTI (urinary tract infection) Qualified Codes: N30.00 - Acute cystitis without hematuria Altered mental status Qualified Codes: R41.82 - Altered mental status, unspecified Admitting Information Admitting Physician Requests: Admit Lissy Gomez DO Apr 27, 2017 23:40
[2017-04-27 23:52] VITALS: BP 167/75; PULSE 116; RESP 20; O2SAT 99
[2017-04-27 23:55] LABS: BACTERIA, URINE FEW /hpf; BLOOD, URINE MOD (NEG); COMMENT (UR) CATH-CULTURE IND; CULTURE IF INDICATED CATH CULTURE IND; GLUCOSE,URINE NEG (NEG); KETONE, URINE 10 mg/dL (NEG); MUCUS URINE FEW /lpf (OCC); NITRITE,URINE NEG (NEG); SQUAMOUS EPITHELIAL CELL URINE 1 /hpf (0-5); URINE COLOR YELLOW (YELLW/STRAW)
[2017-04-27 23:58] LABS: AUTOMATED NEUTROPHIL # 11.2 TH/MM3 (1.8-7.7); BASOPHIL # 0.1 TH/MM3 (0-0.2); BASOPHIL % 0.4 % (0.0-2.0); HEMATOCRIT 32.8 % (35.0-46.0); HEMO FLAGS DIFF FINAL; LYMPH % 10.3 % (9.0-44.0); LYMPHOCYTE # 1.4 TH/MM3 (1.0-4.8); MEAN CELL VOLUME 84.9 FL (80.0-100.0); MEAN CORPUSCULAR HEMOGLOBIN 26.4 PG (27.0-34.0); MEAN CORPUSCULAR HGB CONC 31.2 % (32.0-36.0); MONO % 7.3 % (0.0-8.0); PLATELET COUNT 274 TH/MM3 (150-450); RED BLOOD COUNT 3.86 MIL/MM3 (4.00-5.30); RED CELL DISTRIBUTION WIDTH 16.7 % (11.6-17.2); WHITE BLOOD COUNT 13.7 TH/MM3 (4.0-11.0)
[2017-04-28] VITALS (15 sets, daily range): BP systolic 135–194; BP diastolic 72–108; PULSE 70–134; RESP 20–26; TEMP 98.3–101.6; O2SAT 91–99
[2017-04-28 00:12] LABS: GROSS BLOOD TUBE #1 0 (0); GROSS BLOOD TUBE #2 0 (0); GROSS BLOOD TUBE #3 0 (0); SUPERNATE COLOR TUBE #1 CLEAR (CLEAR); SUPERNATE COLOR TUBE #2 CLEAR (CLEAR); SUPERNATE COLOR TUBE #3 CLEAR (CLEAR); VOLUME TUBE # 3 0.8 ML
[2017-04-28 00:13] LABS: GROSS BLOOD TUBE #4 0 (0); SUPERNATE COLOR TUBE #4 CLEAR (CLEAR)
[2017-04-28 00:23] LABS: ALKALINE PHOSPHATASE 76 U/L (45-117); ALT (GPT) 14 U/L (10-53); ANION GAP 8 MEQ/L (5-15); AST (GOT) 27 U/L (15-37); BICARBONATE 26.6 MEQ/L (21.0-32.0); BLOOD UREA NITROGEN 23 MG/DL (7-18); CHLORIDE 108 MEQ/L (98-107); GLOMERULAR FILTRATION RATE 22 ML/MIN (>89); POTASSIUM 3.9 MEQ/L (3.5-5.1); SODIUM (NA) 143 MEQ/L (136-145); TOTAL BILIRUBIN ADULT 0.6 MG/DL (0.2-1.0)
[2017-04-28] MEDS: HEPARIN SODIUM - SQ 10,000 UNITS/ML VIAL SQ SCH ×3 (01:00→21:20)
[2017-04-28 01:25] LABS: CSF LYMPHOCYTES 4 %; CSF MONOCYTES 3 %; CSF NEUTROPHILS 93 %
[2017-04-28 02:01] LABS: LACTIC ACID GHOST NOT REPORTABLE
[2017-04-28] MEDS ORDERED: hydrALAZINE HCL 20 MG/ML VIAL IV SCH (03:00)
[2017-04-28] MEDS: CHLORHEXIDINE GLUCONATE 2 % 1 PACK (2 CLOTHS) TOP SCH ×2 (03:03→23:36)
[2017-04-28] MEDS ORDERED: hydrALAZINE HCL 20 MG/ML VIAL IV PUSH ONE (05:30)
[2017-04-28] MEDS: AMPICILLIN INJ 1,000 MG VIAL IM SCH ×2 (06:00)
[2017-04-28 07:34] LABS: WBC TUBE #4 52 /MM3 (0-10)
[2017-04-28] MEDS: SODIUM CHLORIDE 0.9% FLUSH 10 ML FLUSH IV FLUSH SCH ×2 (08:39→21:00)
[2017-04-28] MEDS: hydrALAZINE HCL 20 MG/ML VIAL IV PUSH PRN (08:54)
[2017-04-28] MEDS ORDERED: FAMOTIDINE 20 MG/2 ML VIAL IV PUSH SCH (09:00)
[2017-04-28] MEDS ORDERED: VANCOMYCIN 500 MG/NS 100 ML IV ONE ×2 (10:00)
--- NOTE | 2017-04-28 10:22 | PD.CONS ---
History of Present Illness Service Infectious Disease Consult Requested By Dr Santos Reason for Consult Evaluate patient with sepsis Primary Care Physician Non-Staff Diagnoses: History of Present Illness Patient seen and examined. Records reviewed. History of pain mostly from current chart. Patient is a 81-year-old female, apparently visiting from [place], here with the , and staying in hotel. She was apparently found by the on the floor of the hotel. According to the records, patient has not been feeling well for the past 3 days , however there was no details on what kind of symptoms she was having. When the [facility] came to the [facility], there was apparently a lot of mass on the floor where the patient was, and there was vomit, blood as well as stool. Patient was brought into the hospital for further evaluation and treatment. She has been febrile since admission. Patient is awake but really not responding or interacting. Her WBC is mildly elevated. Urinalysis unremarkable. Chest x- rays normal. CT of the head shows chronic her disease. CT of the abdomen and pelvis did not show any acute abnormality, but did show evidence of endovascular stent repair of an abdominal aortic aneurysm. Her lactic acid is elevated. Her creatinine is 2.2. Spinal fluid was obtained, and showed 53 WBC , with 93% neutrophils, normal glucose, and elevated protein. Infectious disease consultation has been requested to evaluate the patient with mental status change, and fevers. Review of Systems ROS Limitations: Clinical Condition, Altered Mental Status Past Family Social History Allergies: Coded Allergies: Unable to Assess (Verified Allergy, Unknown, 04/27/17) Past Medical History Abdominal aortic aneurysm, and repair Otherwise not known Past Surgical History Endovascular repair of an abdominal aneurysm as seen on CT of the abdomen and pelvis Otherwise not known Active Ordered Medications Acetaminophen Albuterol Ampicillin Cefepime Pepcid Heparin Hydralazine Vancomycin Family History Not known Social History Patient is Here in [place] on medication with the Otherwise not known Physical Exam Vital Signs Vital Signs Date Time Temp Pulse Resp B/P (MAP) Pulse Ox O2 Delivery O2 Flow Rate FiO2 04/28/17 07:57 95 Nasal Cannula 2.00 04/28/17 06:00 131 04/28/17 04:00 101.4 131 26 162/72 (102) 98 04/28/17 04:00 131 04/28/17 02:00 124 04/28/17 00:30 101.6 04/28/17 00:14 8/23/17 00:12 100 24 100 2.00 04/28/17 00:00 132 04/28/17 00:00 101.1 132 25 135/85 (102) 91 04/27/17 23:52 116 20 167/75 (105) 99 Nasal Cannula 2.00 04/27/17 22:25 102.2 114 184/86 (118) 04/27/17 21:38 114 22 194/91 (125) Nasal Cannula 2.00 04/27/17 20:31 100.8 108 20 197/90 (125) 98 Nasal Cannula 2.00 04/27/17 18:23 111 20 201/116 (144) 100 Physical Exam GENERAL: Patient is an obese, well-developed female, awake, intermittently focusing, but not following commands, restless and has 4 point restraints. Not in respiratory distress. SKIN: Warm and dry. No generalized rash. Has some ecchymoses on her RUE and shoulder and her L big toe. No embolic lesions noted, no ecchymoses and no evidence of embolic lesions. HEAD: Atraumatic. Normocephalic. No temporal wasting, or tenderness. EYES: [employer] conjunctiva. No petechia or hemorrhage. Pupils equal, round and reactive to light. Extraocular movements full and intact. No scleral icterus. No injection or drainage. EARS, NOSE AND THROAT: Nose without bleeding or purulent nasal discharge. Mucous membranes moist. Unable to completely examine oropharynx. NECK: Trachea midline. Seems to get more agitated with neck flexion CARDIOVASCULAR: Tachycardic, regular RESPIRATORY: Clear to auscultation. Decreased at bases ABDOMEN: Soft, nondistended. Bowel sounds present and normoactive. No guarding. Seems not tender. No organomegaly. EXTREMITIES: No clubbing, cyanosis, or edema.No joint effusion, has good ROM. No calf tenderness. Well perfused and warm. NEUROLOGICAL: Awake and alert. No facial asymmetry. Motor strength appear symmetrical. No babinski PSYCHIATRIC: Restless LINE: No evidence of infection : Martínez in place, urine looks clear Laboratory Laboratory Tests Test 04/27/17 18:40 04/27/17 18:55 04/27/17 19:40 04/27/17 21:45 White Blood Count 12.0 Red Blood Count 4.28 Hemoglobin 11.2 Hematocrit 36.4 Mean Corpuscular Volume 84.9 Mean Corpuscular Hemoglobin 26.1 Mean Corpuscular Hemoglobin Concent 30.8 Red Cell Distribution Width 17.0 Platelet Count 309 Mean Platelet Volume 8.8 Neutrophils (%) (Auto) 85.6 Lymphocytes (%) (Auto) 9.2 Monocytes (%) (Auto) 4.6 Eosinophils (%) (Auto) 0.0 Basophils (%) (Auto) 0.6 Neutrophils # (Auto) 10.3 Lymphocytes # (Auto) 1.1 Monocytes # (Auto) 0.6 Eosinophils # (Auto) 0.0 Basophils # (Auto) 0.1 CBC Comment DIFF FINAL Differential Comment Prothrombin Time 10.9 Prothromb Time International Ratio 1.0 Activated Partial Thromboplast Time 22.8 Blood Urea Nitrogen 23 Creatinine 2.25 Random Glucose 129 Total Protein 7.5 Albumin 3.7 Calcium Level 9.9 Magnesium Level 2.0 Alkaline Phosphatase 85 Aspartate Amino Transf (AST/SGOT) 30 Alanine Aminotransferase (ALT/SGPT) 14 Total Bilirubin 0.5 Sodium Level 139 Potassium Level 4.8 Chloride Level 103 Carbon Dioxide Level 23.7 Anion Gap 12 Estimat Glomerular Filtration Rate 21 Total Creatine Kinase 192 Creatine Kinase MB 1.6 Troponin I 0.16 Thyroid Stimulating Hormone 3rd Gen 0.851 Salicylates Level LESS THAN 1.7 Acetaminophen Level LESS THAN 2.0 Ethyl Alcohol Level LESS THAN 3 Lactic Acid Level 3.2 2.7 Urine Color YELLOW Urine Turbidity CLEAR Urine pH 7.5 Urine Specific [place] 1.017 Urine Protein 300 Urine Glucose (UA) NEG Urine Ketones 40 Urine Occult Blood SMALL Urine Nitrite NEG Urine Bilirubin NEG Urine Urobilinogen LESS THAN 2.0 Urine Leukocyte Esterase NEG Urine RBC 1 Urine WBC LESS THAN 1 Urine Bacteria RARE Urine Hyaline Casts 2 Urine Mucus FEW Microscopic Urinalysis Comment CULT NOT INDICATED Urine Opiates Screen NEG Urine Barbiturates Screen NEG Urine Amphetamines Screen NEG Urine Benzodiazepines Screen NEG Urine Cocaine Screen NEG Urine Cannabinoids Screen NEG Test 04/27/17 22:30 04/27/17 22:40 04/27/17 23:20 04/27/17 23:30 Lactic Acid Level 2.4 CSF Volume (Tube 1) 1.0 CSF Supernatant Color (tube 1) CLEAR CSF Gross Blood (Tube 1) 0 CSF Volume (Tube 2) 1.0 CSF Supernatant Color (tube 2) CLEAR CSF Gross Blood (Tube 2) 0 CSF Volume (Tube 3) 0.8 CSF Supernatant Color (tube 3) CLEAR CSF Gross Blood (Tube 3) 0 CSF Volume (Tube 4) 1.0 CSF Supernatant Color (tube 4) CLEAR CSF Gross Blood (Tube 4) 0 CSF WBC (Tube 4) 52 CSF RBC (Tube 4) 3 CSF Neutrophils 93 CSF Lymphocytes 4 CSF Monocytes 3 CSF Glucose 72 CSF Lactate Dehydrogenase 31 CSF Lactic Acid 4.1 CSF Total Protein 63.6 Urine Color YELLOW Urine Turbidity HAZY Urine pH 6.0 Urine Specific [place] 1.023 Urine Protein 300 Urine Glucose (UA) NEG Urine Ketones 10 Urine Occult Blood MOD Urine Nitrite NEG Urine Bilirubin NEG Urine Urobilinogen LESS THAN 2.0 Urine Leukocyte Esterase MOD Urine RBC 55 Urine WBC 97 Urine Squamous Epithelial Cells 1 Urine Amorphous Sediment RARE Urine Bacteria FEW Urine Mucus FEW Microscopic Urinalysis Comment CATH-CULTURE IND White Blood Count 13.7 Red Blood Count 3.86 Hemoglobin 10.2 Hematocrit 32.8 Mean Corpuscular Volume 84.9 Mean Corpuscular Hemoglobin 26.4 Mean Corpuscular Hemoglobin Concent 31.2 Red Cell Distribution Width 16.7 Platelet Count 274 Mean Platelet Volume 8.9 Neutrophils (%) (Auto) 82.0 Lymphocytes (%) (Auto) 10.3 Monocytes (%) (Auto) 7.3 Eosinophils (%) (Auto) 0.0 Basophils (%) (Auto) 0.4 Neutrophils # (Auto) 11.2 Lymphocytes # (Auto) 1.4 Monocytes # (Auto) 1.0 Eosinophils # (Auto) 0.0 Basophils # (Auto) 0.1 CBC Comment DIFF FINAL Differential Comment Blood Urea Nitrogen 23 Creatinine 2.12 Random Glucose 117 Total Protein 6.7 Albumin 3.3 Calcium Level 9.1 Alkaline Phosphatase 76 Aspartate Amino Transf (AST/SGOT) 27 Alanine Aminotransferase (ALT/SGPT) 14 Total Bilirubin 0.6 Sodium Level 143 Potassium Level 3.9 Chloride Level 108 Carbon Dioxide Level 26.6 Anion Gap 8 Estimat Glomerular Filtration Rate 22 C-Reactive Protein 0.67 Test 04/28/17 00:38 04/28/17 02:35 Nasal Screen MRSA (PCR) MRSA NOT DETECTED Lactic Acid Level 2.7 Date/Time Source Procedure Growth Status 04/27/17 18:45 Blood Peripheral Aerobic Blood Culture Pending Received 04/27/17 18:45 Blood Peripheral Anaerobic Blood Culture Pending Received 04/27/17 22:40 Cerebral Spinal Fluid Lumbar Puncture Gram Stain - Final Resulted 04/27/17 22:40 Cerebral Spinal Fluid Lumbar Puncture CSF Culture - Preliminary NO GROWTH IN 24 HOURS. Resulted 04/27/17 23:20 Urine Catheterized Urine Urine Culture Pending Received Result Diagram: 04/27/17 2330 04/27/17 2330 Imaging RADIOLOGY STUDIES/FILMS REVIEWED Head CT 04/27/171826 Signed Impressions: Service Date/Time: Thursday, April 27, 2017 19:22 - CONCLUSION: 1. No acute intracranial abnormality is identified. 2. Chronic changes include generalized atrophy and moderate to severe periventricular white matter low attenuation characteristic of chronic microvascular ischemia. Jerome Smith MD Chest X-Ray 04/27/171826 Signed Impressions: Service Date/Time: Thursday, April 27, 2017 19:26 - CONCLUSION: No acute cardiopulmonary abnormality is identified. Jerome Smith MD Abdomen/Pelvis CT 04/27/17 0000 Signed Impressions: Service Date/Time: Thursday, April 27, 2017 20:52 - CONCLUSION: 1. No acute finding is identified to explain the abdominal pain. 2. 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 Aneurysm sac size measures 6.4 x 5.5 cm. This could be compared to prior imaging studies to assess for change. 3. Atrophic left kidney likely related to renal vascular disease. 4. Nonacute findings include small hiatal hernia and sigmoid diverticulosis. Jerome Smith MD Assessment and Plan Assessment and Plan IMPRESSION Sepsis on admission, adm with altered mental status, has mildly elevated CSF WBC with neutrophils, ?meningitis - glucose normal and Protein elevated - Fever, leukocytosis, elevated lactic acid, renal insufficiency, altered mental status - CXR clear - UA (+) Renal insufficiency, baseline not known RECOMMENDATION Rocephin Vanco Acyclovir Neuro consult If possible brain MRI Follow C/S Lul progress I will follow along with you Thank you for this consultation Discussed Condition With D/W Taya Williamson MD Apr 28, 2017 10:21
--- NOTE | 2017-04-28 11:51 | HHI.CCPN ---
Subjective Remarks/Hospital Course 81- year old female brought by EVAC. Per EVAC the patient was found by her on the floor of the hotel room. They report the said that the patient has not been feeling well for the past three days. Upon arrival EVAC reports that there was vomit all over the bed and the floor. The patient has a fever of 100.5, is combative and altered. The patient currently is unable to answer any questions. Subjective 04/28: Remains confused with gaze towards left. Not following commands. Tolerating airway on room air. Tachycardic. Objective Vital Signs Date Time Temp Pulse Resp B/P (MAP) Pulse Ox O2 Delivery O2 Flow Rate FiO2 04/28/17 07:57 95 Nasal Cannula 2.00 04/28/17 06:00 131 04/28/17 04:00 101.4 26 162/72 (102) Result Diagram: 04/27/17 2330 04/27/17 2330 Other Results Microbiology Date/Time Source Procedure Growth Status 04/27/17 18:45 Blood Peripheral Aerobic Blood Culture - Preliminary NO GROWTH IN 1 DAY Resulted 04/27/17 18:45 Blood Peripheral Anaerobic Blood Culture - Preliminary NO GROWTH IN 1 DAY Resulted 04/27/17 22:40 Cerebral Spinal Fluid Lumbar Puncture Gram Stain - Final Resulted 04/27/17 22:40 Cerebral Spinal Fluid Lumbar Puncture CSF Culture - Preliminary NO GROWTH IN 24 HOURS. Resulted 04/27/17 23:20 Urine Catheterized Urine Urine Culture Pending Received Imaging Last Impressions Head CT 04/27/171826 Signed Impressions: Service Date/Time: Thursday, April 27, 2017 19:22 - CONCLUSION: 1. No acute intracranial abnormality is identified. 2. Chronic changes include generalized atrophy and moderate to severe periventricular white matter low attenuation characteristic of chronic microvascular ischemia. Jerome Smith MD Chest X-Ray 04/27/171826 Signed Impressions: Service Date/Time: Thursday, April 27, 2017 19:26 - CONCLUSION: No acute cardiopulmonary abnormality is identified. Jerome Smith MD Abdomen/Pelvis CT 04/27/17 0000 Signed Impressions: Service Date/Time: Thursday, April 27, 2017 20:52 - CONCLUSION: 1. No acute finding is identified to explain the abdominal pain. 2. 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 Aneurysm sac size measures 6.4 x 5.5 cm. This could be compared to prior imaging studies to assess for change. 3. Atrophic left kidney likely related to renal vascular disease. 4. Nonacute findings include small hiatal hernia and sigmoid diverticulosis. Jerome Smith MD Objective Remarks GENERAL: 81-year-old female, critically ill currently on room air restrained SKIN: Warm and dry. No rash. Well-perfused. HEAD: Normocephalic. EYES: Pupils are about 2 mm bilaterally and reactive. No scleral icterus. No injection or drainage. NECK: Supple, trachea midline. No JVD or lymphadenopathy. CARDIOVASCULAR: Cardiac, RRR. S1, S2. No S4. RESPIRATORY: Minutes breath sounds throughout. Somewhat cachectic. GASTROINTESTINAL: Abdomen soft, non-tender, nondistended. MUSCULOSKELETAL: tRace lower extremity edema. NEURO EXAM: GCS: M5 V4 E3 agree. Moves all 4 extremities spontaneously. Withdraws to pain. Not following commands. A/P Assessment and Plan Neuro/Psych: Acute delirium Rule out meningeal encephalitis CT brain 04/27 revealed EEG ordered. MRI brain ordered Neurology consult ordered per infectious disease. Holding tramadol 50 mg every 8 hours when necessary pain CV: Sinus tachycardia Hypertension Elevated troponin 0.16 Infrarenal aortic aneurysm status post endovascular stenting Holding lisinopril 40 mg by mouth daily and hydrochlorothiazide 25 mg by mouth daily light of acute kidney injury As needed labetalol, Nitropaste for hypertension PE troponin. Likely secondary to sinus tachycardia/drain. Resp: Nasal cannula to maintain saturations greater than equal to 92% Incentive spirometry while awake GI: Hiatal hernia Sigmoid diverticulosis CT abdomen/pelvis 04/27 revealed a right infrarenal aneurysm with endograft stent. 6.4 x 5.5 centers. No signs of endovascular leak. Also revealed a hiatal hernia, Sigma diverticulosis. Patient is currently nothing by mouth Pantoprazole for GI prophylaxis Glycerin suppositories for bowel regimen : Martínez catheter to be placed for accurate I's and O's in a critically ill patien Endo: Sliding-scale insulin if indicated to maintain euglycemia Renal: Acute kidney injury CT abdomen/pelvis revealed no signs of hydronephrosis Urine eosinophils, electrolytes pending Currently on normal saline at 75 cc now. Recheck BMP in a.m. Monitor urine output Heme: Leukocytosis Normocytic anemia Monitor CBC daily. Follow trends ID: Currently on vancomycin, ampicillin, acyclovir and ceftriaxone per infectious disease Lumbar puncture total protein 62. Glucose 72. 52 WBCs. Blood cultures 2 04/27 no growth. Gram stain CSF 04/27 no growth FEN: Replace electrolytes as clinically indicated MSK: Range of motion physical therapy Access - Utilize peripheral IV. Central line if indicated Prophylaxis - GI - pantoprazole - DVT - SCD/heparin subcutaneous 35 minutes critical care time Harpreet Childers MD Apr 28, 2017 11:51
[2017-04-28] MEDS ORDERED: AMPICILLIN INJ 1,000 MG VIAL IV SCH (12:00)
[2017-04-28] MEDS: SODIUM CHLOR 0.9% 1000 ML INJ 1,000 ML IV SCH ×2 (12:36→23:49)
[2017-04-28] MEDS: cefTRIAXone INJ 2,000 MG in SODIUM CHLORIDE 0.9% INJ 100 ML IV SCH ×2 (12:37→23:49)
[2017-04-28] MEDS: AMPICILLIN 1 GM/NS 100 ML IV SCH ×6 (12:51→23:49)
[2017-04-28] MEDS ORDERED: ACYCLOVIR INJ 350 MG in SODIUM CHLORIDE 0.9% INJ 50 ML IV SCH (13:00)
[2017-04-28] MEDS: PANTOPRAZOLE SODIUM 40 MG VIAL IV PUSH SCH (13:28)
[2017-04-28] MEDS ORDERED: LORazepam 2 MG/ML VIAL IV ONE (16:15)
--- NOTE | 2017-04-28 19:47 | EKG ---
Date Performed: 04/27/2017 Time Performed: 19:53:04 PTAGE: 81 years EKG: SINUS TACHYCARDIA INFERIOR MYOCARDIAL INFARCTION ABNORMAL ECG NO PREVIOUS TRACING DOCTOR: Queenie oDyle Interpretating Date/Time 04/28/2017 19:45:52
[2017-04-28] MEDS: LABETALOL HCL 100 MG/20 ML VIAL IV PUSH PRN (20:20)
--- NOTE | 2017-04-28 21:30 | MG ---
cc: AMANDA ULLOA MD Lab No: Date: 04/28/17 Age: 81 Sex: F Race: DATE OF [birth year][address] Childers MEDICAL HISTORY The patient was found on the floor, unobtainable history. MEDICATIONS 1. Vancomycin. 2. Hydralazine. 3. Acetaminophen. 4. Ampicillin. 5. Cefepime. 6. Heparin. DESCRIPTION The EEG recording is contaminated with excessive muscle artifact that makes it unreadable, and hard to interpret. Please reorder this study. Amanda Ulloa MD RGO/EO /4:31 PM /9:21 PM MTDD
[2017-04-29] VITALS (43 sets, daily range): BP systolic 140–179; BP diastolic 59–75; PULSE 68–133; RESP 19–35; TEMP 98.3–99.4; O2SAT 83–100
[2017-04-29] MEDS: AMPICILLIN 1 GM/NS 100 ML IV SCH ×6 (05:05→16:58)
--- NOTE | 2017-04-29 06:14 | MB ---
cc: JOSE ALFREDO GILL M.D. DATE OF CONSULTATION 04/28/2017 DATE OF 1935 AGE [age] years old REASON FOR CONSULTATION Possible meningitis. Change in mental status and fever. HISTORY OF PRESENT ILLNESS This is a 81-year-old woman brought in by [facility], found by her at the floor of the hotel room. Apparently her said she had not been feeling well for the last few days, had some nausea, vomiting. She was found to have a fever of 100.5, combative and altered, currently unable to answer questions, still very altered. REVIEW OF SYSTEMS Unable. FAMILY HISTORY, SOCIAL HISTORY, ALLERGIES Unable to assess. PAST MEDICAL HISTORY, PAST SURGICAL HISTORY Unable. MEDICATIONS POSSIBLY 1. Lisinopril. 2. Hydrochlorothiazide. 3. Aspirin. 4. Tramadol. PHYSICAL EXAMINATION VITAL SIGNS: Temperature 101.4, heart rate 131, respiratory rate 26, blood pressure 162/72, sating at 95%, 2 liters nasal cannula. GENERAL: She is lying in bed, a 81-year-old woman in no distress. NEUROLOGICAL EXAMINATION Her pupils are reactive. She is nonverbal, just moans, looks at examiner. There is no facial asymmetry. Cannot assess her speech. She seems to have some rigidity of the neck when I tried to lift her head up but she does fight me and she still remains very combative. She seems to move her arms and legs, does not follow any commands whatsoever. LABORATORY DATA Her labs are done. Her ESR is pending. Her white count today is 13.7, hemoglobin 10.2. Her platelets are 274,000. Chemistries - Troponin is 1.17 currently; prior to that it was 0.16. CRP is 0.67. B12 is pending. TSH 0.851. Chemistries - BUN 23, creatinine 2.12, GFR is 22, glucose 117, lactic acid 3.2, 2.7 and 2.4 respectively. Urine - Moderate look esterase. Cultures pending. 97 white cells, 300 protein. Toxicology really unremarkable. Spinal tap shows a WBC of 52, RBCs 3, neutrophils 93, glucose 72, LDH of 31, lactic acid 4.1, total protein 63.6. Lyme and other studies are still pending. Serology - RPR, HSV, influenza are pending. Microbiology - Her blood culture x 1 day shows gram-positive cocci in one of the results. CSF no growth so far. Urine is still pending. IMAGING STUDIES CT head did not show anything acute, just chronic vascular changes. MRI still pending. Abdomen and pelvis CT was also done. No acute findings. She does have an aneurysm sac size of 6.4 x 5 cm, severe atherosclerotic disease in the right infrarenal aortic aneurysm that has been treated with endoluminal stent graft. IMPRESSION A 81-year-old woman, febrile with change in mental status, very possible meningitis. She does have leukocytosis. She does have a urinary tract infection. RECOMMENDATIONS 1. Continue her antibiotics as per Infectious Disease, vanco, Rocephin and acyclovir. I think she is also on ampicillin. 2. We will get the EEG results and try to do an MRI as she may need to be sedated. 3. Further recommendations will be made accordingly. 4. If HSV and PCR are negative, then the acyclovir can be stopped. MD JESSICA Mendoza/PARVEZ /4:15 PM /6:00 AM
[2017-04-29] MEDS: SODIUM CHLORIDE 0.9% FLUSH 10 ML FLUSH IV FLUSH SCH ×2 (08:52→20:42)
[2017-04-29] MEDS: HEPARIN SODIUM - SQ 10,000 UNITS/ML VIAL SQ SCH ×2 (08:53→21:19)
[2017-04-29] MEDS ORDERED: LORazepam 2 MG/ML VIAL ONE (10:03)
[2017-04-29 10:05] LABS: HSV 1,PCR Negative (Negative)
[2017-04-29] MEDS ORDERED: LORazepam 2 MG/ML VIAL IV PUSH ONE (10:15)
--- NOTE | 2017-04-29 10:55 | RADRPT ---
EXAM DATE/TIME: 04/29/2017 10:08 [facility] COMPARISON: No previous studies available for comparison. INDICATIONS : Meningitis. MEDICAL HISTORY : Unobtainable. SURGICAL HISTORY : Unobtainable. ENCOUNTER: Initial ACUITY: 1 day PAIN SCORE: 0/10 LOCATION: cranial Known MRI PrecautionsSedation Utilized? Yes Anesthesia Present? No MRI reaction? No If YES explain: TECHNIQUE: Multiplanar, multisequence MRI of the brain was performed without contrast. FINDINGS: CEREBRUM: The ventricles are normal for age. No evidence of midline shift, mass lesion, hemorrhage or acute in farction. No extraaxial fluid collections are seen. The pituitary gland and suprasellar cistern are normal in configuration. WHITE MATTER: Scattered areas of T2 signal throughout the white matter most consistent with moderate microvascular ischemic demyelinative change. POSTERIOR FOSSA: The cerebellum and brainstem are intact. The 4th ventricle is midline. The cerebellopontine angle is unremarkable. The cerebellar tonsils are normal in position. DIFFUSION IMAGING: No focal areas of restricted diffusion are seen. No evidence of acute infarction. EXTRACRANIAL: The visualized portions of the orbits and paranasal sinuses are unremarkable. CONCLUSION: 1. Moderate microvascular ischemic demyelinative change changes. No acute abnormality. Robert Woods MD on April 29, 2017 at 10:49 Board Certified Radiologist. This report was verified electronically.
[2017-04-29] MEDS ORDERED: VANCOMYCIN 1,500 MG/NS 500 ML IV ONE ×2 (11:00)
--- NOTE | 2017-04-29 11:31 | HHI.CCPN ---
Subjective Remarks/Hospital Course 81- year old female brought by EVAC. Per EVAC the patient was found by her on the floor of the hotel room. They report the said that the patient has not been feeling well for the past three days. Upon arrival [facility] reports that there was vomit all over the bed and the floor. The patient has a fever of 100.5, is combative and altered. The patient currently is unable to answer any questions. 04/28: Remains confused with gaze towards left. Not following commands. Tolerating airway on room air. Tachycardic. Subjective 04/29: Tmax 99.2. Currently 98.8. More appropriate today. Follows simple commands by squeezing hands and wiggling toes. Status post MRI brain. Swallow evaluation pending. Objective Vital Signs Date Time Temp Pulse Resp B/P (MAP) Pulse Ox O2 Delivery O2 Flow Rate FiO2 04/29/17 09:30 100 Nasal Cannula 2.50 04/29/17 06:00 79 04/29/17 04:00 98.9 20 141/64 (89) Intake and Output 04/29/17 04/29/17 04/29/17 07:59 15:59 23:59 Intake Total 1033 ml Output Total 300 ml Balance 733 ml Result Diagram: 04/27/17 2330 04/29/17 0514 Other Results Microbiology Date/Time Source Procedure Growth Status 04/27/17 18:45 Blood Peripheral Aerobic Blood Culture - Preliminary Gram Positive Cocci Resulted 04/27/17 18:45 Blood Peripheral Anaerobic Blood Culture - Preliminary NO GROWTH IN 1 DAY Resulted 04/27/17 22:40 Cerebral Spinal Fluid Lumbar Puncture Gram Stain - Final Resulted 04/27/17 22:40 Cerebral Spinal Fluid Lumbar Puncture CSF Culture - Preliminary NO GROWTH IN 48 HOURS. Resulted 04/27/17 23:20 Urine Catheterized Urine Urine Culture - Final NO GROWTH IN 48 HOURS. Complete Imaging Last Impressions Head CT 04/27/171826 Signed Impressions: Service Date/Time: Thursday, April 27, 2017 19:22 - CONCLUSION: 1. No acute intracranial abnormality is identified. 2. Chronic changes include generalized atrophy and moderate to severe periventricular white matter low attenuation characteristic of chronic microvascular ischemia. Jerome Smith MD Chest X-Ray 04/27/171826 Signed Impressions: Service Date/Time: Thursday, April 27, 2017 19:26 - CONCLUSION: No acute cardiopulmonary abnormality is identified. Jerome Smith MD Abdomen/Pelvis CT 04/27/17 0000 Signed Impressions: Service Date/Time: Thursday, April 27, 2017 20:52 - CONCLUSION: 1. No acute finding is identified to explain the abdominal pain. 2. 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 Aneurysm sac size measures 6.4 x 5.5 cm. This could be compared to prior imaging studies to assess for change. 3. Atrophic left kidney likely related to renal vascular disease. 4. Nonacute findings include small hiatal hernia and sigmoid diverticulosis. Jerome Smith MD Objective Remarks GENERAL: 81-year-old female, critically ill currently on nasal cannula with soft restraints SKIN: Warm and dry. No rash. Well-perfused. HEAD: Normocephalic. EYES: Pupils are about 2 mm bilaterally and reactive. No scleral icterus. No injection or drainage. NECK: Supple, trachea midline. No JVD or lymphadenopathy. CARDIOVASCULAR: RRR. S1, S2. No S4. RESPIRATORY: Minutes breath sounds throughout. Somewhat cachectic. GASTROINTESTINAL: Abdomen soft, non-tender, nondistended. MUSCULOSKELETAL: Trace lower extremity edema. NEURO EXAM: GCS: M5 V5 E4 agree. Moves all 4 extremities spontaneously. Withdraws to pain. Follows simple commands A/P Assessment and Plan Neuro/Psych: Acute delirium Rule out meningeal encephalitis CT brain 04/27 revealed no acute intracranial findings EEG ordered and will be repeated today. MRI brain completed 04/29. Results pending Neurology consult appreciated. Holding tramadol 50 mg every 8 hours when necessary pain CV: Sinus tachycardia currently normal sinus rhythm Hypertension Elevated troponin. In 1 Infrarenal aortic aneurysm status post endovascular stenting Holding lisinopril 40 mg by mouth daily and hydrochlorothiazide 25 mg by mouth daily light of acute kidney injury As needed labetalol, Nitropaste for hypertension Troponin likely strain however will order 2-D echocardiogram for gram-positive cocci bacteremia. Started low-dose beta chava 5 mg IV every 6 hours. Start aspirin if MRI brain negative for acute hemorrhage Resp: Nasal cannula to maintain saturations greater than equal to 92% Incentive spirometry while awake GI: Hiatal hernia Sigmoid diverticulosis CT abdomen/pelvis 04/27 revealed a right infrarenal aneurysm with endograft stent. 6.4 x 5.5 centers. No signs of endovascular leak. Also revealed a hiatal hernia, Sigma diverticulosis. Patient is currently nothing by mouth. Speech to evaluate today. Pantoprazole for GI prophylaxis Glycerin suppositories for bowel regimen : Martínez catheter to be placed for accurate I's and O's in a critically ill patien Endo: Sliding-scale insulin if indicated to maintain euglycemia Renal: Acute kidney injury CT abdomen/pelvis revealed no signs of hydronephrosis Urine eosinophils, electrolytes pending Currently on normal saline at 75 cc now. Recheck BMP in a.m. Monitor urine output Heme: Leukocytosis Normocytic anemia Monitor CBC daily. Follow trends ID: Gram-positive cocci bacteremia Currently on vancomycin, ampicillin, acyclovir and ceftriaxone per infectious disease Lumbar puncture total protein 62. Glucose 72. 52 WBCs. Blood cultures 2 04/27 and positive cocci 2. Recheck 04/29. Gram stain CSF 04/27 no growth FEN: Replace electrolytes as clinically indicated MSK: Range of motion physical therapy Access - Utilize peripheral IV. Central line if indicated Prophylaxis - GI - pantoprazole - DVT - SCD/heparin subcutaneous 35 minutes critical care time Harpreet Chliders MD Apr 29, 2017 11:31
[2017-04-29] MEDS: METOPROLOL TARTRATE 5 MG/5 ML VIAL IV PUSH SCH ×2 (12:48→16:58)
--- NOTE | 2017-04-29 13:18 | EKG ---
Date Performed: 04/29/2017 Time Performed: 11:37:29 PTAGE: 81 years EKG: Sinus rhythm INFERIOR MYOCARDIAL INFARCTION , OF INDETERMINATE AGE ABNORMAL ECG PREVIOUS TRACING : 04/27/2017 19.53 No change from previous tracing noted. DOCTOR: Alfredo Charles Interpretating Date/Time 04/29/2017 13:17:01
[2017-04-29] MEDS: PANTOPRAZOLE SODIUM 40 MG VIAL IV PUSH SCH (14:41)
[2017-04-29] MEDS: cefTRIAXone INJ 2,000 MG in SODIUM CHLORIDE 0.9% INJ 100 ML IV SCH (14:42)
[2017-04-29 15:03] LABS: AUTOMATED NEUTROPHIL # 8.1 TH/MM3 (1.8-7.7); BASOPHIL # 0.1 TH/MM3 (0-0.2); BASOPHIL % 0.8 % (0.0-2.0); EOSINOPHIL % 0.3 % (0.0-4.0); HEMO FLAGS DIFF FINAL; LYMPH % 15.3 % (9.0-44.0); LYMPHOCYTE # 1.6 TH/MM3 (1.0-4.8); MEAN CELL VOLUME 86.5 FL (80.0-100.0); MEAN CORPUSCULAR HEMOGLOBIN 27.5 PG (27.0-34.0); MEAN CORPUSCULAR HGB CONC 31.8 % (32.0-36.0); MONO % 6.6 % (0.0-8.0); PLATELET COUNT 217 TH/MM3 (150-450); RED BLOOD COUNT 3.59 MIL/MM3 (4.00-5.30); RED CELL DISTRIBUTION WIDTH 17.8 % (11.6-17.2); WHITE BLOOD COUNT 10.5 TH/MM3 (4.0-11.0)
[2017-04-29 15:14] LABS: POTASSIUM 3.5 MEQ/L (3.5-5.1)
--- NOTE | 2017-04-29 15:14 | HHI.IDPN ---
Subjective Subjective Remarks History of pain mostly from current chart. Patient is a 81-year-old female, apparently visiting from [place], here with the , and staying in hotel. She was apparently found by the on the floor of the hotel. According to the records, patient has not been feeling well for the past 3 days , however there was no details on what kind of symptoms she was having. When the VAC came to the notes L, there was apparently a lot of mass on the floor where the patient was, and there was vomit, blood as well as stool. Patient was brought into the hospital for further evaluation and treatment. She has been febrile since admission. Patient is awake but really not responding or interacting. Her WBC is mildly elevated. Urinalysis unremarkable. Chest x- rays normal. CT of the head shows chronic her disease. CT of the abdomen and pelvis did not show any acute abnormality, but did show evidence of endovascular stent repair of an abdominal aortic aneurysm. Her lactic acid is elevated. Her creatinine is 2.2. Spinal fluid was obtained, and showed 53 WBC , with 93% neutrophils, normal glucose, and elevated protein. Infectious disease consultation has been requested to evaluate the patient with mental status change, and fevers. Notes reviewed Mental status is better More awake and following simple commands Answered some of my questions, wrong answers Told me her age is 81, she lives in [place], name is Bo Says no DOMINGO now Not SOB temps better BP ok CSF C/S negative so far HSV negative Creatinine still elevated Brain MRI without contrast negative Antibiotics Acyclovir Vancomycin Rocephin Ampicillin Past Medical History Abdominal aneurysm repair The rest is not known Allergies: Coded Allergies: Unable to Assess (Verified Allergy, Unknown, 04/27/17) Objective . Vital Signs Date Time Temp Pulse Resp B/P (MAP) Pulse Ox O2 Delivery O2 Flow Rate FiO2 04/29/17 13:00 70 04/29/17 12:54 85 04/29/17 12:45 77 04/29/17 12:30 78 04/29/17 12:15 79 04/29/17 12:00 98.3 04/29/17 12:00 84 04/29/17 12:00 84 21 172/72 (105) 99 04/29/17 11:45 83 04/29/17 11:30 85 04/29/17 11:15 88 04/29/17 11:00 82 04/29/17 11:00 82 19 149/67 (94) 98 04/29/17 10:53 83 21 165/72 (103) 99 04/29/17 10:53 83 04/29/17 10:45 91 04/29/17 10:30 92 04/29/17 09:30 100 Nasal Cannula 2.50 04/29/17 09:00 81 21 166/69 (101) 100 04/29/17 08:00 80 25 164/72 (102) 100 04/29/17 08:00 98.5 04/29/17 08:00 81 04/29/17 06:00 79 04/29/17 04:00 72 04/29/17 04:00 98.9 72 20 141/64 (89) 98 04/29/17 02:00 68 04/29/17 00:00 99.3 75 20 144/63 (90) 96 04/29/17 00:00 75 04/28/17 22:00 70 04/28/17 21:17 99 Nasal Cannula 2.50 04/28/17 20:00 114 04/28/17 20:00 98.3 114 20 174/74 (107) 95 04/28/17 18:00 109 04/28/17 16:00 99.0 120 22 179/77 (111) 96 04/28/17 16:00 126 04/29/17 04/29/17 04/30/17 14:59 22:59 06:59 Intake Total 487 ml Balance 487 ml Intake IV Total 487 ml . Laboratory Tests Test 04/27/17 18:40 04/27/17 23:30 04/28/17 14:35 04/29/17 14:35 White Blood Count 12.0 TH/MM3 13.7 TH/MM3 Red Blood Count 4.28 MIL/MM3 3.86 MIL/MM3 Hemoglobin 11.2 GM/DL 10.2 GM/DL Hematocrit 36.4 % 32.8 % Mean Corpuscular Volume 84.9 FL 84.9 FL Mean Corpuscular Hemoglobin 26.1 PG 26.4 PG Mean Corpuscular Hemoglobin Concent 30.8 % 31.2 % Red Cell Distribution Width 17.0 % 16.7 % Platelet Count 309 TH/MM3 274 TH/MM3 Mean Platelet Volume 8.8 FL 8.9 FL Neutrophils (%) (Auto) 85.6 % 82.0 % Lymphocytes (%) (Auto) 9.2 % 10.3 % Monocytes (%) (Auto) 4.6 % 7.3 % Eosinophils (%) (Auto) 0.0 % 0.0 % Basophils (%) (Auto) 0.6 % 0.4 % Neutrophils # (Auto) 10.3 TH/MM3 11.2 TH/MM3 Lymphocytes # (Auto) 1.1 TH/MM3 1.4 TH/MM3 Monocytes # (Auto) 0.6 TH/MM3 1.0 TH/MM3 Eosinophils # (Auto) 0.0 TH/MM3 0.0 TH/MM3 Basophils # (Auto) 0.1 TH/MM3 0.1 TH/MM3 CBC Comment DIFF FINAL DIFF FINAL Differential Comment Erythrocyte Sedimentation Rate 38 mm/hr Laboratory Tests Test 04/27/17 18:40 04/27/17 18:55 04/27/17 21:45 04/27/17 22:30 Blood Urea Nitrogen 23 MG/DL Creatinine 2.25 MG/DL Random Glucose 129 MG/DL Total Protein 7.5 GM/DL Albumin 3.7 GM/DL Calcium Level 9.9 MG/DL Magnesium Level 2.0 MG/DL Alkaline Phosphatase 85 U/L Aspartate Amino Transf (AST/SGOT) 30 U/L Alanine Aminotransferase (ALT/SGPT) 14 U/L Total Bilirubin 0.5 MG/DL Sodium Level 139 MEQ/L Potassium Level 4.8 MEQ/L Chloride Level 103 MEQ/L Carbon Dioxide Level 23.7 MEQ/L Anion Gap 12 MEQ/L Estimat Glomerular Filtration Rate 21 ML/MIN Total Creatine Kinase 192 U/L Creatine Kinase MB 1.6 NG/ML Troponin I 0.16 NG/ML Thyroid Stimulating Hormone 3rd Gen 0.851 uIU/ML Lactic Acid Level 3.2 mmol/L 2.7 mmol/L 2.4 mmol/L Test 04/27/17 23:30 04/28/17 02:35 04/28/17 14:35 04/29/17 05:14 Blood Urea Nitrogen 23 MG/DL Creatinine 2.12 MG/DL 2.22 MG/DL Random Glucose 117 MG/DL Total Protein 6.7 GM/DL Albumin 3.3 GM/DL Calcium Level 9.1 MG/DL Alkaline Phosphatase 76 U/L Aspartate Amino Transf (AST/SGOT) 27 U/L Alanine Aminotransferase (ALT/SGPT) 14 U/L Total Bilirubin 0.6 MG/DL Sodium Level 143 MEQ/L Potassium Level 3.9 MEQ/L Chloride Level 108 MEQ/L Carbon Dioxide Level 26.6 MEQ/L Anion Gap 8 MEQ/L Estimat Glomerular Filtration Rate 22 ML/MIN 21 ML/MIN C-Reactive Protein 0.67 MG/DL Lactic Acid Level 2.7 mmol/L 1.6 mmol/L 1.2 mmol/L Ammonia LESS THAN 10 MCMOL/L Troponin I 1.17 NG/ML 1.38 NG/ML Vitamin B12 Level 443 PG/ML Test 04/29/17 14:35 Microbiology Date/Time Source Procedure Growth Status 04/29/17 14:39 Blood Peripheral Aerobic Blood Culture Pending Received 04/29/17 14:39 Blood Peripheral Anaerobic Blood Culture Pending Received 04/29/17 14:30 Blood Peripheral Aerobic Blood Culture Pending Received 04/29/17 14:30 Blood Peripheral Anaerobic Blood Culture Pending Received 04/27/17 18:45 Blood Peripheral Aerobic Blood Culture - Preliminary Gram Positive Cocci Resulted 04/27/17 18:45 Blood Peripheral Anaerobic Blood Culture - Preliminary NO GROWTH IN 2 DAYS Resulted 04/27/17 18:40 Blood Peripheral Aerobic Blood Culture - Preliminary NO GROWTH IN 2 DAYS Resulted 04/27/17 18:40 Anaerobic Blood Culture - Preliminary Staph Sp Coagulase Negative Resulted 04/27/17 22:40 Cerebral Spinal Fluid Lumbar Puncture Gram Stain - Final Resulted 04/27/17 22:40 Cerebral Spinal Fluid Lumbar Puncture CSF Culture - Preliminary NO GROWTH IN 48 HOURS. Resulted 04/27/17 23:20 Urine Catheterized Urine Urine Culture - Final NO GROWTH IN 48 HOURS. Complete Imaging Last Impressions Brain MRI 04/29/17 0000 Signed Impressions: Service Date/Time: April 10:08 - CONCLUSION: 1. Moderate microvascular ischemic demyelinative change changes. No acute abnormality. Robert Woods MD Head CT 04/27/171826 Signed Impressions: Service Date/Time: Thursday, April 27, 2017 19:22 - CONCLUSION: 1. No acute intracranial abnormality is identified. 2. Chronic changes include generalized atrophy and moderate to severe periventricular white matter low attenuation characteristic of chronic microvascular ischemia. Jerome Smith MD Chest X-Ray 04/27/171826 Signed Impressions: Service Date/Time: Thursday, April 27, 2017 19:26 - CONCLUSION: No acute cardiopulmonary abnormality is identified. Jerome Smith MD Abdomen/Pelvis CT 04/27/17 0000 Signed Impressions: Service Date/Time: Thursday, April 27, 2017 20:52 - CONCLUSION: 1. No acute finding is identified to explain the abdominal pain. 2. 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 Aneurysm sac size measures 6.4 x 5.5 cm. This could be compared to prior imaging studies to assess for change. 3. Atrophic left kidney likely related to renal vascular disease. 4. Nonacute findings include small hiatal hernia and sigmoid diverticulosis. Jerome Smith MD Physical Exam GENERAL: Patient is an obese, well-developed female, awake, following simple commands, confused, not in respiratory distress. SKIN: Warm and dry. No generalized rash. Has some ecchymoses on her RUE and shoulder and her L big toe. No embolic lesions noted, no ecchymoses and no evidence of embolic lesions. HEAD: Atraumatic. Normocephalic. No temporal wasting, or tenderness. EYES: [place] conjunctiva. No petechia or hemorrhage. Pupils equal, round and reactive to light. Extraocular movements full and intact. No scleral icterus. No injection or drainage. EARS, NOSE AND THROAT: Nose without bleeding or purulent nasal discharge. Mucous membranes moist. Unable to completely examine oropharynx. NECK: Trachea midline. Seems to get more agitated with neck flexion CARDIOVASCULAR: Tachycardic, regular RESPIRATORY: Clear to auscultation. Decreased at bases ABDOMEN: Soft, nondistended. Bowel sounds present and normoactive. No guarding. Seems not tender. No organomegaly. EXTREMITIES: No clubbing, cyanosis, or edema.No joint effusion, has good ROM. No calf tenderness. Well perfused and warm. NEUROLOGICAL: Awake and alert. No facial asymmetry. Motor strength appear symmetrical. No babinski PSYCHIATRIC: lethargic, but easily arousable, cooperative LINE: No evidence of infection : Martínez in place, urine looks clear Assessment & Plan Remarks IMPRESSION Sepsis on admission, adm with altered mental status, has mildly elevated CSF WBC with neutrophils, ?meningitis - glucose normal and Protein elevated - Fever, leukocytosis, elevated lactic acid, renal insufficiency, altered mental status - CXR clear - UA (+) Renal insufficiency, baseline not known (+) BC, ?significance RECOMMENDATION Continue Rocephin Continue Vanco Continue Ampicillin Stop Acyclovir Repeat 2 BC Follow C/S Monitor progress D/W RN Dr Rufus Lazo covering 04/30-05/02 Taya Hines MD Apr 29, 2017 15:14
[2017-04-29 15:23] LABS: HDL CHOLESTEROL 41.6 MG/DL (40.0-60.0)
[2017-04-29 16:33] LABS: LYME IGG IMMUNOBLOT CSF None Detected bands (None Detected); LYME IGM IMMUNOBLOT CSF None Detected bands (None Detected)
[2017-04-29] MEDS: hydrALAZINE HCL 20 MG/ML VIAL IV PUSH PRN ×2 (16:36→21:19)
[2017-04-29] MEDS: SODIUM CHLOR 0.9% 1000 ML INJ 1,000 ML IV SCH (16:36)
--- NOTE | 2017-04-29 16:48 | ECHRPT ---
Indication: sepsis/ endocarditis CONCLUSIONS Normal left ventricular size. Wall thickness is normal. The left ventricular systolic function is normal with an estimated ejection fraction in the range of 55-60%. Mitral annular calcification is present. Mild mitral valve regurgitation. There is mild tricuspid valve regurgitation. The estimated pulmonary arterial pressure is 37 mmHg. BP: 141 / 64 HR: 72 Rhythm: Sinus MEASUREMENTS (Male / Female) Normal Values Technical Quality:Good 2D ECHO LV Diastolic Diameter PLAX 4.9 cm 4.2 - 5.9 / 3.9 - 5.3 cm LV Systolic Diameter PLAX 3.7 cm IVS Diastolic Thickness 0.8 cm 0.6 - 1.0 / 0.6 - 0.9 cm LVPW Diastolic Thickness 0.8 cm 0.6 - 1.0 / 0.6 - 0.9 cm LV Relative Wall Thickness 0.3 RV Internal Dim ED PLAX 1.9 cm LA Systolic Diameter LX 3.9 cm 3.0 - 4.0 / 2.7 - 3.8 cm M-MODE Aortic Root Diameter MM 4.0 cm AV Cusp Separation MM 2.1 cm DOPPLER AV Peak Velocity 166.0 cm/s AV Peak Gradient 11.0 mmHg LVOT Peak Velocity 140.0 cm/s LVOT Peak Gradient 7.8 mmHg MV Peak Velocity 154.0 cm/s MV Peak Gradient 9.5 mmHg MV Mean Velocity 70.6 cm/s MV Mean Gradient 3.0 mmHg Mitral E Point Velocity 69.2 cm/s Mitral A Point Velocity 157.0 cm/s Mitral E to A Ratio 0.4 TR Peak Velocity 258.0 cm/s TR Peak Gradient 26.6 mmHg FINDINGS LEFT VENTRICLE Normal left ventricular size. Wall thickness is normal. The left ventricular systolic function is normal with an estimated ejection fraction in the range of 55-60%. RIGHT VENTRICLE Normal right ventricular size and systolic function. LEFT ATRIUM The left atrial size is normal. RIGHT ATRIUM The right atrial size is normal. ATRIAL SEPTUM Normal atrial septal thickness without atrial level shunting by limited color doppler interrogation. AORTA The aortic root and proximal ascending aorta are normal in size on limited imaging. MITRAL VALVE Mitral annular calcification is present. Mild mitral valve regurgitation. AORTIC VALVE Trileaflet aortic valve. No aortic valve stenosis or regurgitation. TRICUSPID VALVE There is mild tricuspid valve regurgitation. The estimated pulmonary arterial pressure is 37 mmHg. PULMONARY VALVE The pulmonary valve is not well visualized. VESSELS The inferior vena cava is normal in size. PERICARDIUM No pericardial effusion. Jd Alvarado MD, FACC (Electronically Signed) Final Date:29 April 2017 16:47
--- NOTE | 2017-04-29 17:06 | MG ---
cc: AMANDA ULLOA MD Lab No: Date: Age: 89 Sex: F Race: DATE OF : 10/31/1925. REFERRING PHYSICIAN: Dr. Childers. MEDICAL HISTORY: Patient found on the floor, vomitus on bed, combative and altered. MEDICATIONS: 1. Acyclovir. 2. Ceftriaxone. 3. Ampicillin. 4. Hydralazine. 5. Heparin. DESCRIPTION OF THE RECORDING: This is a repeated EEG. There is excessive muscle and movement artifact. In the readable portion of the EEG, there is slowing of the background activity with generalized polymorphic theta and delta rhythm. Hyperventilation was not done. Photic stimulation did not elicit driving response. There were no electrographic seizures or epileptiform discharges noted. INTERPRETATION: This is a generally slow EEG that may be due to an encephalopathy. There is excessive muscle artifact that limits interpretation; however, in the readable portion of the EEG, there was no ictal activity or epileptiform discharges noted. Clinical correlation is recommended. Amanda Ulloa MD [facility] [place] /4:49 PM /4:55 PM [facility]
[2017-04-29] MEDS ORDERED: ASPIRIN 81 MG CHEW TAB CHEW ONE (18:00)
[2017-04-29] MEDS ORDERED: LACTATED RINGER'S 1000 ML INJ 500 ML IV ONE (20:00)
[2017-04-29] MEDS ORDERED: SODIUM CHLOR 0.45% 1000 ML INJ 1,000 ML IV ONE ×2 (23:00)
[2017-04-30] VITALS (39 sets, daily range): BP systolic 135–183; BP diastolic 59–106; PULSE 72–119; RESP 17–39; TEMP 98.3–98.8; O2SAT 76–99
[2017-04-30] MEDS: AMPICILLIN 1 GM/NS 100 ML IV SCH ×6 (00:27→08:15)
[2017-04-30] MEDS: METOPROLOL TARTRATE 5 MG/5 ML VIAL IV PUSH SCH ×4 (00:27→17:10)
[2017-04-30] MEDS: cefTRIAXone INJ 2,000 MG in SODIUM CHLORIDE 0.9% INJ 100 ML IV SCH ×2 (00:28→13:04)
[2017-04-30] MEDS: CHLORHEXIDINE GLUCONATE 2 % 1 PACK (2 CLOTHS) TOP SCH ×2 (02:00→04:00)
[2017-04-30] MEDS: LABETALOL HCL 100 MG/20 ML VIAL IV PUSH PRN (04:14)
[2017-04-30] MEDS: SODIUM CHLOR 0.9% 1000 ML INJ 1,000 ML IV SCH (05:56)
[2017-04-30 07:00] LABS: AUTOMATED NEUTROPHIL # 8.2 TH/MM3 (1.8-7.7); BASOPHIL # 0.1 TH/MM3 (0-0.2); BASOPHIL % 0.6 % (0.0-2.0); EOSINOPHIL % 0.2 % (0.0-4.0); HEMATOCRIT 29.8 % (35.0-46.0); HEMO FLAGS DIFF FINAL; LYMPH % 10.1 % (9.0-44.0); MEAN CELL VOLUME 85.6 FL (80.0-100.0); MEAN CORPUSCULAR HEMOGLOBIN 27.2 PG (27.0-34.0); MEAN CORPUSCULAR HGB CONC 31.8 % (32.0-36.0); MONO % 5.1 % (0.0-8.0); PLATELET COUNT 210 TH/MM3 (150-450); RED BLOOD COUNT 3.49 MIL/MM3 (4.00-5.30); RED CELL DISTRIBUTION WIDTH 17.5 % (11.6-17.2); WHITE BLOOD COUNT 9.8 TH/MM3 (4.0-11.0)
[2017-04-30 07:18] LABS: ALKALINE PHOSPHATASE 61 U/L (45-117); ALT (GPT) 23 U/L (10-53); ANION GAP 12 MEQ/L (5-15); AST (GOT) 39 U/L (15-37); BICARBONATE 20.2 MEQ/L (21.0-32.0); BLOOD UREA NITROGEN 28 MG/DL (7-18); CHLORIDE 115 MEQ/L (98-107); CREATINE KINASE 239 U/L (26-192); GLOMERULAR FILTRATION RATE 27 ML/MIN (>89); MAGNESIUM 1.9 MG/DL (1.5-2.5); POTASSIUM 3.3 MEQ/L (3.5-5.1); SODIUM (NA) 147 MEQ/L (136-145); TOTAL BILIRUBIN ADULT 0.3 MG/DL (0.2-1.0)
[2017-04-30 07:58] LABS: CKMB 4.9 NG/ML (0.5-3.6)
[2017-04-30] MEDS: HEPARIN SODIUM - SQ 10,000 UNITS/ML VIAL SQ SCH ×2 (08:14→21:13)
[2017-04-30] MEDS: SODIUM CHLORIDE 0.9% FLUSH 10 ML FLUSH IV FLUSH SCH ×2 (08:15→20:15)
[2017-04-30] MEDS: ASPIRIN 81 MG CHEW TAB CHEW SCH (08:15)
[2017-04-30] MEDS ORDERED: RESP: ALBUTEROL 2.5 MG/IPRATROPIUM 0.5 MG NEB (PRN) NEB (09:00)
[2017-04-30] MEDS ORDERED: POTASSIUM CHLOR 40 MEQ PREMIX 100 ML IV PRN ×2 (09:30)
[2017-04-30] MEDS ORDERED: GLUCAGON 1 MG/ML VIAL OTHER PRN (09:30)
[2017-04-30] MEDS ORDERED: POTASSIUM CHLOR 20 MEQ PREMIX 100 ML IV PRN (09:30)
[2017-04-30] MEDS ORDERED: MAGNESIUM SULFATE INJ 4 GM in SODIUM CHLORIDE 0.9% INJ 92 ML IV PRN (09:30)
[2017-04-30] MEDS ORDERED: DEXTROSE 50% IN WATER 50 ML VIAL(D50) IV PRN (09:30)
[2017-04-30] MEDS ORDERED: POTASSIUM PHOSPHATE MONOBASIC 500 MG TAB PO/TUBE PRN (09:30)
[2017-04-30] MEDS ORDERED: POTASSIUM PHOSPHATE INJ 30 MMOL in SODIUM CHLOR 0.9% 250 ML INJ 250 ML IV PRN (09:30)
[2017-04-30] MEDS ORDERED: MAGNESIUM SULFATE INJ 2 GM in SODIUM CHLORIDE 0.9% INJ 96 ML IV PRN (09:30)
[2017-04-30] MEDS ORDERED: POTASSIUM CHLORIDE 25 MEQ EFFERVESCENT TAB PO PRN (09:30)
[2017-04-30] MEDS ORDERED: MAGNESIUM OXIDE 400 MG TAB PO PRN (09:30)
[2017-04-30] MEDS ORDERED: POTASSIUM PHOSPHATE MONOBASIC 500 MG TAB PO PRN (09:30)
[2017-04-30] MEDS ORDERED: SODIUM PHOSPHATE INJ 30 MMOL in SODIUM CHLOR 0.9% 250 ML INJ 240 ML IV PRN (09:30)
--- NOTE | 2017-04-30 09:30 | HHI.CCPN ---
Subjective Remarks/Hospital Course 81- year old female brought by EVAC. Per EVAC the patient was found by her on the floor of the hotel room. They report the said that the patient has not been feeling well for the past three days. Upon arrival [facility]AC reports that there was vomit all over the bed and the floor. The patient has a fever of 100.5, is combative and altered. The patient currently is unable to answer any questions. 04/28: Remains confused with gaze towards left. Not following commands. Tolerating airway on room air. Tachycardic. Subjective 04/29: Tmax 99.2. Currently 98.8. More appropriate today. Follows simple commands by squeezing hands and wiggling toes. Status post MRI brain. Swallow evaluation pending. 04/30 Patient is lying in bed in NAD. Afebrile. Received 2L bolus NS for tachycardia and decrease UOP overnight. Objective Vital Signs Date Time Temp Pulse Resp B/P (MAP) Pulse Ox O2 Delivery O2 Flow Rate FiO2 04/30/17 08:37 99 Nasal Cannula 2.00 04/30/17 06:31 76 27 155/65 (95) 04/30/17 04:00 98.8 Intake and Output 04/30/17 04/30/17 04/30/17 07:59 15:59 23:59 Intake Total 0 ml Output Total 375 ml Balance -375 ml Result Diagram: 04/30/17 0604/30/17 06 Other Results Laboratory Tests Test 04/29/17 14:35 04/30/17 06:07 White Blood Count 10.5 TH/MM3 9.8 TH/MM3 Red Blood Count 3.59 MIL/MM3 3.49 MIL/MM3 Hemoglobin 9.9 GM/DL 9.5 GM/DL Hematocrit 31.0 % 29.8 % Mean Corpuscular Volume 86.5 FL 85.6 FL Mean Corpuscular Hemoglobin 27.5 PG 27.2 PG Mean Corpuscular Hemoglobin Concent 31.8 % 31.8 % Red Cell Distribution Width 17.8 % 17.5 % Platelet Count 217 TH/MM3 210 TH/MM3 Mean Platelet Volume 9.0 FL 9.5 FL Neutrophils (%) (Auto) 77.0 % 84.0 % Lymphocytes (%) (Auto) 15.3 % 10.1 % Monocytes (%) (Auto) 6.6 % 5.1 % Eosinophils (%) (Auto) 0.3 % 0.2 % Basophils (%) (Auto) 0.8 % 0.6 % Neutrophils # (Auto) 8.1 TH/MM3 8.2 TH/MM3 Lymphocytes # (Auto) 1.6 TH/MM3 1.0 TH/MM3 Monocytes # (Auto) 0.7 TH/MM3 0.5 TH/MM3 Eosinophils # (Auto) 0.0 TH/MM3 0.0 TH/MM3 Basophils # (Auto) 0.1 TH/MM3 0.1 TH/MM3 CBC Comment DIFF FINAL DIFF FINAL Differential Comment Blood Urea Nitrogen 29 MG/DL 28 MG/DL Creatinine 2.07 MG/DL 1.81 MG/DL Random Glucose 81 MG/DL 68 MG/DL Calcium Level 8.8 MG/DL 8.4 MG/DL Phosphorus Level 3.8 MG/DL 3.0 MG/DL Magnesium Level 2.0 MG/DL 1.9 MG/DL Sodium Level 146 MEQ/L 147 MEQ/L Potassium Level 3.5 MEQ/L 3.3 MEQ/L Chloride Level 114 MEQ/L 115 MEQ/L Carbon Dioxide Level 23.0 MEQ/L 20.2 MEQ/L Anion Gap 9 MEQ/L 12 MEQ/L Estimat Glomerular Filtration Rate 23 ML/MIN 27 ML/MIN Triglycerides Level 186 MG/DL Cholesterol Level 158 MG/DL LDL Cholesterol 79 MG/DL HDL Cholesterol 41.6 MG/DL Cholesterol/HDL Ratio 3.79 RATIO Thyroid Stimulating Hormone 3rd Gen 2.850 uIU/ML Total Protein 5.9 GM/DL Albumin 2.6 GM/DL Alkaline Phosphatase 61 U/L Aspartate Amino Transf (AST/SGOT) 39 U/L Alanine Aminotransferase (ALT/SGPT) 23 U/L Total Bilirubin 0.3 MG/DL Total Creatine Kinase 239 U/L Creatine Kinase MB 4.9 NG/ML Creatine Kinase MB % 2.1 % Imaging Last Impressions Brain MRI 04/29/17 0000 Signed Impressions: Service Date/Time: April 10:08 - CONCLUSION: 1. Moderate microvascular ischemic demyelinative change changes. No acute abnormality. Robert Woods MD Head CT 04/27/17 1827 Signed Impressions: Service Date/Time: Thursday, April 27, 2017 19:22 - CONCLUSION: 1. No acute intracranial abnormality is identified. 2. Chronic changes include generalized atrophy and moderate to severe periventricular white matter low attenuation characteristic of chronic microvascular ischemia. Jerome Smith MD Chest X-Ray 04/27/17 1827 Signed Impressions: Service Date/Time: Thursday, April 27, 2017 19:26 - CONCLUSION: No acute cardiopulmonary abnormality is identified. Jerome Smith MD Abdomen/Pelvis CT 04/27/17 0000 Signed Impressions: Service Date/Time: Thursday, April 27, 2017 20:52 - CONCLUSION: 1. No acute finding is identified to explain the abdominal pain. 2. 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 Aneurysm sac size measures 6.4 x 5.5 cm. This could be compared to prior imaging studies to assess for change. 3. Atrophic left kidney likely related to renal vascular disease. 4. Nonacute findings include small hiatal hernia and sigmoid diverticulosis. Jerome Smith MD Objective Remarks GENERAL: 81-year-old female,currently on nasal cannula lying in bed in NAD SKIN: Warm and dry. No rash. Well-perfused. HEAD: Normocephalic. EYES: Pupils are about 2 mm bilaterally and reactive. No scleral icterus. No injection or drainage. NECK: Supple, trachea midline. No JVD or lymphadenopathy. CARDIOVASCULAR: RRR. S1, S2. No S4. RESPIRATORY: Minutes breath sounds throughout. Somewhat cachectic. GASTROINTESTINAL: Abdomen soft, non-tender, nondistended. MUSCULOSKELETAL: Trace lower extremity edema. NEURO EXAM: Moves all 4 extremities spontaneously. Follows simple commands A/P Assessment and Plan Neuro/Psych: Acute delirium Rule out meningeal encephalitis CT brain 04/27 revealed no acute intracranial findings MRI brain 04/29: Moderate microvascular ischemic demyelinative change changes. No acute abnormality. EEG 04/28: Excessive muscle artifact Neurology is following s/p LP on 04/27: Clear CSF 52 WBC, normal glc, elevated protein with neutrophil predominance. CV: Sinus tachycardia currently normal sinus rhythm Hypertension Elevated troponin. In 1 Infrarenal aortic aneurysm status post endovascular stenting Holding lisinopril 40 mg by mouth daily and hydrochlorothiazide 25 mg by mouth daily light of acute kidney injury Monitor HR and BP keep MAP>65mmHg Echo: 04/29 EF 55-60% On Lopressor 5mg IV Q6, ASA 81mg daily Resp: Nasal cannula to maintain saturations greater than equal to 92% Bronchodilators GI: Hiatal hernia Sigmoid diverticulosis Speech eval, diet per speech CT abdomen/pelvis 04/27 revealed a right infrarenal aneurysm with endograft stent. 6.4 x 5.5 centers. No signs of endovascular leak. Also revealed a hiatal hernia, Sigma diverticulosis. Patient is currently nothing by mouth. Speech to evaluate today. Pantoprazole for GI prophylaxis Glycerin suppositories for bowel regimen : BENITO Hypernatremia Monitor renal function, I/O's, electrolytes replacement as needed. Avoid nephrotoxins Change IVF D51/2NS@84ml/hr Endo: SSI if indicated to maintain euglycemia Heme: Leukocytosis- Resolved Normocytic anemia Monitor CBC daily. Follow trends ID: 04/27 GPC bacteremia, coag negative staph Continue abx per ID( vancomycin, ampicillin, and ceftriaxone) Lumbar puncture total protein 62. Glucose 72. 52 WBCs. Blood cultures 2 04/27 and positive cocci 2. Recheck 04/29...NGTD Gram stain CSF 04/27 no growth FEN: Replace electrolytes as clinically indicated MSK: Range of motion physical therapy Access - Utilize peripheral IV. Central line if indicated Prophylaxis - GI - pantoprazole - DVT - SCD/heparin subcutaneous Level 3 Richie Morales MD Apr 30, 2017 09:30
[2017-04-30] MEDS: INSULIN NovoLIN REGULAR SUPPLEMENTAL SCALE SQ SCH ×4 (10:00→21:46)
[2017-04-30] MEDS: POTASSIUM CHLOR 20 MEQ PREMIX 100 ML IV PRN ×2 (10:00→12:04)
[2017-04-30] MEDS: DEXT 5%-NACL 0.45% 1000 ML INJ 1,000 ML IV SCH (10:00)
[2017-04-30] MEDS: RESP: ALBUTEROL 2.5 MG/IPRATROPIUM 0.5 MG NEB (SCH) NEB ×3 (12:52→20:00)
[2017-04-30] MEDS: PANTOPRAZOLE SODIUM 40 MG VIAL IV PUSH SCH (13:04)
--- NOTE | 2017-04-30 17:13 | HHI.IDPN ---
Subjective Subjective Remarks Delayed entry patient seen at 11 am ~ ID Xcover for . Patient is a 81-year-old female, apparently visiting from [place], here with the , and staying in hotel. She was apparently found by the on the floor of the hotel. According to the records, patient has not been feeling well for the past 3 days, however there was no details on what kind of symptoms she was having. When the VAC came to the notes L, there was apparently a lot of mass on the floor where the patient was, and there was vomit , blood as well as stool. Patient was brought into the hospital for further evaluation and treatment. She has been febrile since admission. Patient is awake but really not responding or interacting. Her WBC is mildly elevated. Urinalysis unremarkable. Chest x-rays normal. CT of the head shows chronic her disease. CT of the abdomen and pelvis did not show any acute abnormality, but did show evidence of endovascular stent repair of an abdominal aortic aneurysm. Her lactic acid is elevated. Her creatinine is 2.2. Spinal fluid was obtained, and showed 53 WBC, with 93% neutrophils, normal glucose, and elevated protein. Infectious disease consultation has been requested to evaluate the patient with mental status change, and fevers. Notes reviewed Mental status is better More awake and following simple commands Answered some of my questions, wrong answers Told me her age is 81, she lives in [place], name is Bo Says no DOMINGO now Not SOB temps better BP ok CSF C/S negative so far HSV negative Creatinine still elevated Brain MRI without contrast negative UO low. Antibiotics Acyclovir Vancomycin Rocephin Ampicillin Past Medical History Abdominal aneurysm repair The rest is not known Allergies: Coded Allergies: Unable to Assess (Verified Allergy, Unknown, 04/27/17) Objective . Vital Signs Date Time Temp Pulse Resp B/P (MAP) Pulse Ox O2 Delivery O2 Flow Rate FiO2 04/30/17 14:00 75 04/30/17 12:00 98.3 76 21 141/65 (90) 99 04/30/17 12:00 76 04/30/17 10:00 78 04/30/17 08:37 99 Nasal Cannula 2.00 04/30/17 08:00 99 Nasal Cannula 2.00 04/30/17 08:00 77 04/30/17 08:00 98.3 77 24 160/67 (98) 98 04/30/17 06:31 76 27 155/65 (95) 98 04/30/17 06:30 75 26 96 04/30/17 06:00 93 04/30/17 06:00 93 22 160/68 (98) 98 04/30/17 05:30 87 26 153/67 (95) 97 04/30/17 05:00 88 17 135/88 (104) 98 04/30/17 04:31 78 18 146/66 (92) 97 04/30/17 04:30 76 20 96 04/30/17 04:15 99 Nasal Cannula 2.00 04/30/17 04:00 98.8 106 24 176/72 (106) 95 04/30/17 04:00 106 04/30/17 04:00 106 36 176/72 (106) 95 04/30/17 03:30 95 19 167/71 (103) 96 04/30/17 03:01 96 21 150/64 (92) 97 04/30/17 03:00 95 20 97 04/30/17 02:30 98 36 155/67 (96) 96 04/30/17 02:00 100 39 157/67 (97) 95 04/30/17 02:00 100 04/30/17 01:30 97 19 147/64 (91) 95 04/30/17 01:00 96 37 146/68 (94) 96 04/30/17 00:30 98 24 149/59 (89) 96 04/30/17 00:00 119 26 144/87 (106) 96 04/30/17 00:00 119 26 144/87 (106) 96 04/30/17 00:00 98.3 119 24 144/87 (106) 96 04/30/17 00:00 119 04/29/17 23:30 126 23 143/60 (87) 88 04/29/17 23:00 128 21 154/67 (96) 96 04/29/17 22:30 117 20 140/59 (86) 96 04/29/17 22:00 133 04/29/17 22:00 133 28 158/69 (98) 83 04/29/17 21:30 114 26 97 04/29/17 21:20 120 177/75 (109) 04/29/17 21:00 109 32 177/75 (109) 97 04/29/17 20:30 104 29 96 04/29/17 20:12 97 Nasal Cannula 3.00 04/29/17 20:00 96 Nasal Cannula 3.00 04/29/17 20:00 106 04/29/17 20:00 99.4 106 24 169/71 (103) 96 04/29/17 19:30 103 32 96 04/29/17 19:00 99 35 161/69 (99) 96 04/29/17 18:00 95 35 152/67 (95) 98 04/29/17 18:00 95 04/29/17 18:00 95 04/30/17 04/30/17 05/01/17 14:59 22:59 06:59 Intake Total 560 ml 100 ml Balance 560 ml 100 ml IV Total 560 ml 100 ml . Laboratory Tests Test 04/29/17 14:35 04/30/17 06:07 White Blood Count 10.5 TH/MM3 9.8 TH/MM3 Red Blood Count 3.59 MIL/MM3 3.49 MIL/MM3 Hemoglobin 9.9 GM/DL 9.5 GM/DL Hematocrit 31.0 % 29.8 % Mean Corpuscular Volume 86.5 FL 85.6 FL Mean Corpuscular Hemoglobin 27.5 PG 27.2 PG Mean Corpuscular Hemoglobin Concent 31.8 % 31.8 % Red Cell Distribution Width 17.8 % 17.5 % Platelet Count 217 TH/MM3 210 TH/MM3 Mean Platelet Volume 9.0 FL 9.5 FL Neutrophils (%) (Auto) 77.0 % 84.0 % Lymphocytes (%) (Auto) 15.3 % 10.1 % Monocytes (%) (Auto) 6.6 % 5.1 % Eosinophils (%) (Auto) 0.3 % 0.2 % Basophils (%) (Auto) 0.8 % 0.6 % Neutrophils # (Auto) 8.1 TH/MM3 8.2 TH/MM3 Lymphocytes # (Auto) 1.6 TH/MM3 1.0 TH/MM3 Monocytes # (Auto) 0.7 TH/MM3 0.5 TH/MM3 Eosinophils # (Auto) 0.0 TH/MM3 0.0 TH/MM3 Basophils # (Auto) 0.1 TH/MM3 0.1 TH/MM3 CBC Comment DIFF FINAL DIFF FINAL Differential Comment Laboratory Tests Test 04/29/17 05:14 04/29/17 14:35 04/30/17 06:07 04/30/17 10:58 Creatinine 2.22 MG/DL 2.07 MG/DL 1.81 MG/DL Estimat Glomerular Filtration Rate 21 ML/MIN 23 ML/MIN 27 ML/MIN Lactic Acid Level 1.2 mmol/L Troponin I 1.38 NG/ML 0.75 NG/ML Blood Urea Nitrogen 29 MG/DL 28 MG/DL Random Glucose 81 MG/DL 68 MG/DL Calcium Level 8.8 MG/DL 8.4 MG/DL Phosphorus Level 3.8 MG/DL 3.0 MG/DL 2.7 MG/DL Magnesium Level 2.0 MG/DL 1.9 MG/DL Sodium Level 146 MEQ/L 147 MEQ/L Potassium Level 3.5 MEQ/L 3.3 MEQ/L Chloride Level 114 MEQ/L 115 MEQ/L Carbon Dioxide Level 23.0 MEQ/L 20.2 MEQ/L Anion Gap 9 MEQ/L 12 MEQ/L Triglycerides Level 186 MG/DL Cholesterol Level 158 MG/DL LDL Cholesterol 79 MG/DL HDL Cholesterol 41.6 MG/DL Cholesterol/HDL Ratio 3.79 RATIO Thyroid Stimulating Hormone 3rd Gen 2.850 uIU/ML Total Protein 5.9 GM/DL Albumin 2.6 GM/DL Alkaline Phosphatase 61 U/L Aspartate Amino Transf (AST/SGOT) 39 U/L Alanine Aminotransferase (ALT/SGPT) 23 U/L Total Bilirubin 0.3 MG/DL Total Creatine Kinase 239 U/L Creatine Kinase MB 4.9 NG/ML Creatine Kinase MB % 2.1 % Microbiology Date/Time Source Procedure Growth Status 04/29/17 14:39 Blood Peripheral Aerobic Blood Culture - Preliminary NO GROWTH IN 1 DAY Resulted 04/29/17 14:39 Blood Peripheral Anaerobic Blood Culture - Preliminary NO GROWTH IN 1 DAY Resulted 04/29/17 14:30 Blood Peripheral Aerobic Blood Culture - Preliminary NO GROWTH IN 1 DAY Resulted 04/29/17 14:30 Blood Peripheral Anaerobic Blood Culture - Preliminary NO GROWTH IN 1 DAY Resulted 04/27/17 18:45 Blood Peripheral Aerobic Blood Culture - Preliminary Staph Sp Coagulase Negative Resulted 04/27/17 18:45 Blood Peripheral Anaerobic Blood Culture - Preliminary NO GROWTH IN 3 DAYS Resulted 04/27/17 18:40 Blood Peripheral Aerobic Blood Culture - Preliminary NO GROWTH IN 3 DAYS Resulted 04/27/17 18:40 Anaerobic Blood Culture - Preliminary Staph Sp Coagulase Negative Resulted 04/27/17 22:40 Cerebral Spinal Fluid Lumbar Puncture Gram Stain - Final Complete 04/27/17 22:40 Cerebral Spinal Fluid Lumbar Puncture CSF Culture - Final NO GROWTH IN 72 HOURS Complete 04/27/17 23:20 Urine Catheterized Urine Urine Culture - Final NO GROWTH IN 48 HOURS. Complete Imaging Last Impressions Brain MRI 04/29/17 0000 Signed Impressions: Service Date/Time: April 10:08 - CONCLUSION: 1. Moderate microvascular ischemic demyelinative change changes. No acute abnormality. Robert Woods MD Head CT 04/27/171826 Signed Impressions: Service Date/Time: Thursday, April 27, 2017 19:22 - CONCLUSION: 1. No acute intracranial abnormality is identified. 2. Chronic changes include generalized atrophy and moderate to severe periventricular white matter low attenuation characteristic of chronic microvascular ischemia. Jerome Smith MD Chest X-Ray 04/27/171826 Signed Impressions: Service Date/Time: Thursday, April 27, 2017 19:26 - CONCLUSION: No acute cardiopulmonary abnormality is identified. Jerome Smith MD Abdomen/Pelvis CT 04/27/17 0000 Signed Impressions: Service Date/Time: Thursday, April 27, 2017 20:52 - CONCLUSION: 1. No acute finding is identified to explain the abdominal pain. 2. 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 Aneurysm sac size measures 6.4 x 5.5 cm. This could be compared to prior imaging studies to assess for change. 3. Atrophic left kidney likely related to renal vascular disease. 4. Nonacute findings include small hiatal hernia and sigmoid diverticulosis. Jerome Smith MD Physical Exam GENERAL: Patient is an obese, well-developed female, awake, following simple commands, confused, not in respiratory distress. SKIN: Warm and dry. No generalized rash. Has some ecchymoses on her RUE and shoulder and her L big toe. No embolic lesions noted, no ecchymoses and no evidence of embolic lesions. HEAD: Atraumatic. Normocephalic. No temporal wasting, or tenderness. EYES: [place] conjunctiva. No petechia or hemorrhage. Pupils equal, round and reactive to light. Extraocular movements full and intact. No scleral icterus. No injection or drainage. EARS, NOSE AND THROAT: Nose without bleeding or purulent nasal discharge. Mucous membranes moist. Unable to completely examine oropharynx. NECK: Trachea midline. Seems to get more agitated with neck flexion CARDIOVASCULAR: Tachycardic, regular RESPIRATORY: Clear to auscultation. Decreased at bases ABDOMEN: Soft, nondistended. Bowel sounds present and normoactive. No guarding. Seems not tender. No organomegaly. EXTREMITIES: No clubbing, cyanosis, or edema.No joint effusion, has good ROM. No calf tenderness. Well perfused and warm. NEUROLOGICAL: Awake and alert. No facial asymmetry. Motor strength appear symmetrical. No babinski PSYCHIATRIC: lethargic, but easily arousable, cooperative LINE: No evidence of infection : Martínez in place, urine looks clear Assessment & Plan Remarks IMPRESSION Sepsis on admission, adm with altered mental status, has mildly elevated CSF WBC with neutrophils, ?meningitis - glucose normal and Protein elevated - Fever, leukocytosis, elevated lactic acid, renal insufficiency, altered mental status - CXR clear - UA (+) Renal insufficiency, baseline not known (+) BC, ?significance RECOMMENDATION Continue Rocephin DC Vanco IV (coag neg staph could be contaminant as no foreign body, no skin lesions, no lines on admission. DC Ampicillin Repeat 2 BC Follow C/S Monitor progress D/W RN Dr Rufus Lazo covering 04/30-05/02 Daya Lazo MD Apr 30, 2017 17:13
[2017-04-30] MEDS: hydrALAZINE HCL 20 MG/ML VIAL IV PUSH PRN (20:15)
[2017-04-30] MEDS: NITROGLYCERIN 2% OINT 1 GM PACKET TOPICAL PRN (21:13)
[2017-04-30 23:55] LABS: HAEMOPHILUS FLU AG TYPE B Not Detected (Not Detected); N MENINGITIDIS GRP B/ECOLI K1 Not Detected (Not Detected); N MENINGITIDIS GRP C/W135 Not Detected (Not Detected); N.MENINGITIDIS GRP A/Y Not Detected (Not Detected); STREPTOCOCCUS PNEUMONIAE Not Detected (Not Detected)
[2017-05-01] VITALS (30 sets, daily range): BP systolic 139–173; BP diastolic 58–124; PULSE 66–96; RESP 18–43; TEMP 98–98.6; O2SAT 91–95
[2017-05-01] MEDS: cefTRIAXone INJ 2,000 MG in SODIUM CHLORIDE 0.9% INJ 100 ML IV SCH ×3 (00:01→23:10)
[2017-05-01] MEDS: DEXT 5%-NACL 0.45% 1000 ML INJ 1,000 ML IV SCH (01:40)
[2017-05-01] MEDS: INSULIN NovoLIN REGULAR SUPPLEMENTAL SCALE SQ SCH ×5 (02:00→20:41)
[2017-05-01] MEDS: CHLORHEXIDINE GLUCONATE 2 % 1 PACK (2 CLOTHS) TOP SCH (02:00)
[2017-05-01] MEDS: RESP: ALBUTEROL 2.5 MG/IPRATROPIUM 0.5 MG NEB (SCH) NEB ×4 (02:23→20:13)
[2017-05-01] MEDS: LABETALOL HCL 100 MG/20 ML VIAL IV PUSH PRN ×3 (04:14→20:43)
[2017-05-01 05:44] LABS: AUTOMATED NEUTROPHIL # 4.6 TH/MM3 (1.8-7.7); BASOPHIL % 0.8 % (0.0-2.0); EOSINOPHIL # 0.1 TH/MM3 (0-0.4); EOSINOPHIL % 1.9 % (0.0-4.0); HEMATOCRIT 27.4 % (35.0-46.0); HEMO FLAGS DIFF FINAL; LYMPH % 15.8 % (9.0-44.0); MEAN CELL VOLUME 86.7 FL (80.0-100.0); MEAN CORPUSCULAR HEMOGLOBIN 26.2 PG (27.0-34.0); MEAN CORPUSCULAR HGB CONC 30.3 % (32.0-36.0); MONO % 7.3 % (0.0-8.0); NEUT % 74.2 % (16.0-70.0); PLATELET COUNT 195 TH/MM3 (150-450); RED BLOOD COUNT 3.16 MIL/MM3 (4.00-5.30); RED CELL DISTRIBUTION WIDTH 17.6 % (11.6-17.2); WHITE BLOOD COUNT 6.2 TH/MM3 (4.0-11.0)
[2017-05-01] MEDS: METOPROLOL TARTRATE 5 MG/5 ML VIAL IV PUSH SCH ×5 (05:45→23:10)
[2017-05-01 05:58] LABS: BICARBONATE 20.7 MEQ/L (21.0-32.0); MAGNESIUM 1.9 MG/DL (1.5-2.5); POTASSIUM 3.3 MEQ/L (3.5-5.1)
[2017-05-01] MEDS: ASPIRIN 81 MG CHEW TAB CHEW SCH (08:45)
[2017-05-01] MEDS: SODIUM CHLORIDE 0.9% FLUSH 10 ML FLUSH IV FLUSH SCH ×2 (08:45→20:37)
--- NOTE | 2017-05-01 11:01 | HHI.PR ---
Subjective Remarks Follow-up sepsis/metabolic encephalopathy/rule out meningitis 05/01/17-patient seen and examined, alert but confused and in 2 points restraints. Afebrile Objective Vitals Vital Signs Date Time Temp Pulse Resp B/P (MAP) Pulse Ox O2 Delivery O2 Flow Rate FiO2 05/01/17 10:00 68 05/01/17 08:00 95 Nasal Cannula 2.00 05/01/17 08:00 98.0 75 22 166/73 (104) 92 05/01/17 08:00 66 05/01/17 07:58 93 Nasal Cannula 0.50 05/01/17 06:30 69 23 155/95 (115) 92 05/01/17 06:10 172/71 (104) 05/01/17 06:00 71 05/01/17 06:00 71 24 172/71 (104) 93 05/01/17 05:30 74 18 164/71 (102) 92 05/01/17 05:00 75 20 155/67 (96) 91 05/01/17 04:30 71 22 159/101 (120) 94 05/01/17 04:30 71 22 159/101 (120) 94 05/01/17 04:01 90 33 170/58 (95) 95 05/01/17 04:00 98.4 86 20 170/58 (95) 95 05/01/17 04:00 86 05/01/17 04:00 86 25 95 05/01/17 03:30 88 36 168/68 (101) 94 05/01/17 03:00 84 43 155/96 (115) 95 05/01/17 02:30 84 21 165/70 (101) 94 05/01/17 02:00 82 27 166/70 (102) 95 05/01/17 02:00 82 05/01/17 01:30 87 23 151/67 (95) 94 05/01/17 01:04 82 20 148/67 (94) 94 05/01/17 01:03 86 19 150/107 (121) 94 05/01/17 01:01 91 29 144/102 (116) 94 05/01/17 01:00 88 31 95 05/01/17 00:30 79 20 165/69 (101) 94 05/01/17 00:01 96 26 156/65 (95) 94 05/01/17 00:00 96 28 94 05/01/17 00:00 96 28 94 05/01/17 00:00 94 Nasal Cannula 1.00 05/01/17 00:00 96 05/01/17 00:00 98.6 96 18 156/65 (95) 94 04/30/17 23:30 96 22 166/71 (102) 95 04/30/17 23:00 97 24 159/73 (101) 95 04/30/17 22:36 98 21 168/75 (106) 95 04/30/17 22:30 99 20 159/106 (123) 95 04/30/17 22:00 101 23 166/70 (102) 96 04/30/17 22:00 101 04/30/17 21:30 101 21 163/73 (103) 95 04/30/17 21:15 168/78 (108) 04/30/17 21:01 100 25 168/78 (108) 98 04/30/17 21:00 100 31 95 04/30/17 20:31 84 18 164/84 (110) 98 04/30/17 20:30 86 24 98 04/30/17 20:01 97 Nasal Cannula 2.00 04/30/17 20:00 98.5 78 20 183/83 (116) 95 04/30/17 20:00 95 Nasal Cannula 2.00 04/30/17 20:00 78 04/30/17 20:00 78 17 183/83 (116) 76 04/30/17 19:30 80 25 172/72 (105) 96 04/30/17 19:00 79 30 178/81 (113) 95 04/30/17 18:00 72 04/30/17 16:00 98.6 79 20 138/88 (105) 96 04/30/17 16:00 79 04/30/17 14:00 75 04/30/17 12:00 98.3 76 21 141/65 (90) 99 04/30/17 12:00 76 I/O 04/30/17 04/30/17 04/30/17 05/01/17 05/01/17 05/01/17 06:59 14:59 22:59 06:59 14:59 22:59 Intake Total 0 ml 560 ml 1012 ml 300 ml Output Total 375 ml 300 ml 250 ml Balance -375 ml 560 ml 712 ml 50 ml Intake Oral 0 ml 240 ml 300 ml IV Total 560 ml 772 ml Output Urine Total 375 ml 300 ml 250 ml # Bowel Movements 0 1 0 Result Diagram: 05/01/17 0456 05/01/17 0456 Imaging Last Impressions Brain MRI 04/29/17 0000 Signed Impressions: Service Date/Time: April 10:08 - CONCLUSION: 1. Moderate microvascular ischemic demyelinative change changes. No acute abnormality. Robert Woods MD Head CT 04/27/171826 Signed Impressions: Service Date/Time: Thursday, April 27, 2017 19:22 - CONCLUSION: 1. No acute intracranial abnormality is identified. 2. Chronic changes include generalized atrophy and moderate to severe periventricular white matter low attenuation characteristic of chronic microvascular ischemia. Jerome Smith MD Chest X-Ray 04/27/171826 Signed Impressions: Service Date/Time: Thursday, April 27, 2017 19:26 - CONCLUSION: No acute cardiopulmonary abnormality is identified. Jerome Smith MD Abdomen/Pelvis CT 04/27/17 0000 Signed Impressions: Service Date/Time: Thursday, April 27, 2017 20:52 - CONCLUSION: 1. No acute finding is identified to explain the abdominal pain. 2. 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 Aneurysm sac size measures 6.4 x 5.5 cm. This could be compared to prior imaging studies to assess for change. 3. Atrophic left kidney likely related to renal vascular disease. 4. Nonacute findings include small hiatal hernia and sigmoid diverticulosis. Jerome Smith MD Objective Remarks GENERAL: NAD with 2pts restrains SKIN: Warm and dry. HEAD: Normocephalic. EYES: No scleral icterus. No injection or drainage. NECK: Supple, trachea midline. No JVD or lymphadenopathy. CARDIOVASCULAR: Regular rate and rhythm without murmurs, gallops, or rubs. RESPIRATORY: Breath sounds decrease bilaterally. No accessory muscle use. GASTROINTESTINAL: Abdomen soft, non-tender, nondistended. MUSCULOSKELETAL: No cyanosis, or edema. BACK: Nontender without obvious deformity. No CVA tenderness. A/P Problem List: (1) Metabolic encephalopathy ICD Code: G93.41 - Metabolic encephalopathy (2) Sepsis ICD Code: A41.9 - Sepsis, unspecified organism Status: Acute (3) UTI (urinary tract infection) ICD Code: N39.0 - Urinary tract infection, site not specified Status: Acute Assessment and Plan 81-year-old female with Sepsis: Meningitis ruled out Treatment for UTI Continue Rocephin per ID and follow cultures Metabolic Encephalopathy Continue treatment as in above CT brain 04/27 revealed no acute intracranial findings MRI brain 04/29: Moderate microvascular ischemic demyelinative change changes. No acute abnormality. EEG 04/28: Excessive muscle artifact Neurology is following s/p LP on 04/27: Clear CSF 52 WBC, normal glc, elevated protein with neutrophil predominance. Sinus tachycardia currently normal sinus rhythm Hypertension Elevated troponin. In 1 Infrarenal aortic aneurysm status post endovascular stenting Holding lisinopril 40 mg by mouth daily and hydrochlorothiazide 25 mg by mouth daily light of acute kidney injury Echo: 04/29 EF 55-60% On Lopressor 5mg IV Q6, ASA 81mg daily Hiatal hernia Sigmoid diverticulosis CT abdomen/pelvis 04/27 revealed a right infrarenal aneurysm with endograft stent. 6.4 x 5.5 centers. No signs of endovascular leak. Also revealed a hiatal hernia, Sigma diverticulosis. Pantoprazole for GI prophylaxis Glycerin suppositories for bowel regimen BENITO Hypernatremia Monitor renal function, I/O's, electrolytes replacement as needed. Avoid nephrotoxins IVF D51/2NS@84ml/hr Leukocytosis- Resolved Normocytic anemia Monitor CBC daily. Follow trends Prophylaxis - GI - pantoprazole - DVT - SCD/heparin subcutaneous Problem Qualifiers (1) Sepsis: Qualified Codes: A41.9 - Sepsis, unspecified organism (2) UTI (urinary tract infection): Qualified Codes: N30.00 - Acute cystitis without hematuria Fili Magaña MD May 01, 2017 11:01
--- NOTE | 2017-05-01 12:49 | HHI.IDPN ---
Subjective Subjective Remarks ID Xcover for . Patient is a 81-year-old female, apparently visiting from [place], here with the , and staying in hotel. She was apparently found by the on the floor of the hotel. According to the records, patient has not been feeling well for the past 3 days, however there was no details on what kind of symptoms she was having. When the VAC came to the notes L, there was apparently a lot of mass on the floor where the patient was, and there was vomit , blood as well as stool. Patient was brought into the hospital for further evaluation and treatment. She has been febrile since admission. Patient is awake but really not responding or interacting. Her WBC is mildly elevated. Urinalysis unremarkable. Chest x-rays normal. CT of the head shows chronic her disease. CT of the abdomen and pelvis did not show any acute abnormality, but did show evidence of endovascular stent repair of an abdominal aortic aneurysm. Her lactic acid is elevated. Her creatinine is 2.2. Spinal fluid was obtained, and showed 53 WBC, with 93% neutrophils, normal glucose, and elevated protein. Infectious disease consultation has been requested to evaluate the patient with mental status change, and fevers. Notes reviewed Mental status is better More awake and following simple commands Answered some of my questions, wrong answers Told me her age is 81, she lives in [place], name is Bo Says no DOMINGO now Not SOB temps better BP ok CSF C/S negative so far HSV negative Creatinine still elevated Brain MRI without contrast negative UO low. Antibiotics Rocephin IV q12 hrs Lines Line sites with no e.o infection. Past Medical History Abdominal aneurysm repair The rest is not known Allergies: Coded Allergies: Unable to Assess (Verified Allergy, Unknown, 04/27/17) Objective . Vital Signs Date Time Temp Pulse Resp B/P (MAP) Pulse Ox O2 Delivery O2 Flow Rate FiO2 05/01/17 12:00 98.1 75 21 173/72 (105) 95 05/01/17 12:00 80 05/01/17 10:00 68 05/01/17 08:00 95 Nasal Cannula 2.00 05/01/17 08:00 98.0 75 22 166/73 (104) 92 05/01/17 08:00 66 05/01/17 07:58 93 Nasal Cannula 0.50 05/01/17 06:30 69 23 155/95 (115) 92 05/01/17 06:10 172/71 (104) 05/01/17 06:00 71 05/01/17 06:00 71 24 172/71 (104) 93 05/01/17 05:30 74 18 164/71 (102) 92 05/01/17 05:00 75 20 155/67 (96) 91 05/01/17 04:30 71 22 159/101 (120) 94 05/01/17 04:30 71 22 159/101 (120) 94 05/01/17 04:01 90 33 170/58 (95) 95 05/01/17 04:00 98.4 86 20 170/58 (95) 95 05/01/17 04:00 86 05/01/17 04:00 86 25 95 05/01/17 03:30 88 36 168/68 (101) 94 05/01/17 03:00 84 43 155/96 (115) 95 05/01/17 02:30 84 21 165/70 (101) 94 05/01/17 02:00 82 27 166/70 (102) 95 05/01/17 02:00 82 05/01/17 01:30 87 23 151/67 (95) 94 05/01/17 01:04 82 20 148/67 (94) 94 05/01/17 01:03 86 19 150/107 (121) 94 05/01/17 01:01 91 29 144/102 (116) 94 05/01/17 01:00 88 31 95 05/01/17 00:30 79 20 165/69 (101) 94 05/01/17 00:01 96 26 156/65 (95) 94 05/01/17 00:00 96 28 94 05/01/17 00:00 96 28 94 05/01/17 00:00 94 Nasal Cannula 1.00 05/01/17 00:00 96 05/01/17 00:00 98.6 96 18 156/65 (95) 94 04/30/17 23:30 96 22 166/71 (102) 95 04/30/17 23:00 97 24 159/73 (101) 95 04/30/17 22:36 98 21 168/75 (106) 95 04/30/17 22:30 99 20 159/106 (123) 95 04/30/17 22:00 101 23 166/70 (102) 96 04/30/17 22:00 101 04/30/17 21:30 101 21 163/73 (103) 95 04/30/17 21:15 168/78 (108) 04/30/17 21:01 100 25 168/78 (108) 98 04/30/17 21:00 100 31 95 04/30/17 20:31 84 18 164/84 (110) 98 04/30/17 20:30 86 24 98 04/30/17 20:01 97 Nasal Cannula 2.00 04/30/17 20:00 98.5 78 20 183/83 (116) 95 04/30/17 20:00 95 Nasal Cannula 2.00 04/30/17 20:00 78 04/30/17 20:00 78 17 183/83 (116) 76 04/30/17 19:30 80 25 172/72 (105) 96 04/30/17 19:00 79 30 178/81 (113) 95 04/30/17 18:00 72 04/30/17 16:00 98.6 79 20 138/88 (105) 96 04/30/17 16:00 79 04/30/17 14:00 75 . Laboratory Tests Test 04/29/17 14:35 04/30/17 06:07 05/01/17 04:56 White Blood Count 10.5 TH/MM3 9.8 TH/MM3 6.2 TH/MM3 Red Blood Count 3.59 MIL/MM3 3.49 MIL/MM3 3.16 MIL/MM3 Hemoglobin 9.9 GM/DL 9.5 GM/DL 8.3 GM/DL Hematocrit 31.0 % 29.8 % 27.4 % Mean Corpuscular Volume 86.5 FL 85.6 FL 86.7 FL Mean Corpuscular Hemoglobin 27.5 PG 27.2 PG 26.2 PG Mean Corpuscular Hemoglobin Concent 31.8 % 31.8 % 30.3 % Red Cell Distribution Width 17.8 % 17.5 % 17.6 % Platelet Count 217 TH/MM3 210 TH/MM3 195 TH/MM3 Mean Platelet Volume 9.0 FL 9.5 FL 9.1 FL Neutrophils (%) (Auto) 77.0 % 84.0 % 74.2 % Lymphocytes (%) (Auto) 15.3 % 10.1 % 15.8 % Monocytes (%) (Auto) 6.6 % 5.1 % 7.3 % Eosinophils (%) (Auto) 0.3 % 0.2 % 1.9 % Basophils (%) (Auto) 0.8 % 0.6 % 0.8 % Neutrophils # (Auto) 8.1 TH/MM3 8.2 TH/MM3 4.6 TH/MM3 Lymphocytes # (Auto) 1.6 TH/MM3 1.0 TH/MM3 1.0 TH/MM3 Monocytes # (Auto) 0.7 TH/MM3 0.5 TH/MM3 0.5 TH/MM3 Eosinophils # (Auto) 0.0 TH/MM3 0.0 TH/MM3 0.1 TH/MM3 Basophils # (Auto) 0.1 TH/MM3 0.1 TH/MM3 0.0 TH/MM3 CBC Comment DIFF FINAL DIFF FINAL DIFF FINAL Differential Comment Laboratory Tests Test 04/29/17 14:35 04/30/17 06:07 04/30/17 10:58 05/01/17 04:56 Blood Urea Nitrogen 29 MG/DL 28 MG/DL 25 MG/DL Creatinine 2.07 MG/DL 1.81 MG/DL 1.72 MG/DL Random Glucose 81 MG/DL 68 MG/DL 100 MG/DL Calcium Level 8.8 MG/DL 8.4 MG/DL 8.1 MG/DL Phosphorus Level 3.8 MG/DL 3.0 MG/DL 2.7 MG/DL 2.0 MG/DL Magnesium Level 2.0 MG/DL 1.9 MG/DL 1.9 MG/DL Sodium Level 146 MEQ/L 147 MEQ/L 144 MEQ/L Potassium Level 3.5 MEQ/L 3.3 MEQ/L 3.3 MEQ/L Chloride Level 114 MEQ/L 115 MEQ/L 115 MEQ/L Carbon Dioxide Level 23.0 MEQ/L 20.2 MEQ/L 20.7 MEQ/L Anion Gap 9 MEQ/L 12 MEQ/L 8 MEQ/L Estimat Glomerular Filtration Rate 23 ML/MIN 27 ML/MIN 29 ML/MIN Triglycerides Level 186 MG/DL Cholesterol Level 158 MG/DL LDL Cholesterol 79 MG/DL HDL Cholesterol 41.6 MG/DL Cholesterol/HDL Ratio 3.79 RATIO Thyroid Stimulating Hormone 3rd Gen 2.850 uIU/ML Total Protein 5.9 GM/DL Albumin 2.6 GM/DL Alkaline Phosphatase 61 U/L Aspartate Amino Transf (AST/SGOT) 39 U/L Alanine Aminotransferase (ALT/SGPT) 23 U/L Total Bilirubin 0.3 MG/DL Total Creatine Kinase 239 U/L Creatine Kinase MB 4.9 NG/ML Creatine Kinase MB % 2.1 % Troponin I 0.75 NG/ML Microbiology Date/Time Source Procedure Growth Status 04/29/17 14:39 Blood Peripheral Aerobic Blood Culture - Preliminary NO GROWTH IN 2 DAYS Resulted 04/29/17 14:39 Blood Peripheral Anaerobic Blood Culture - Preliminary NO GROWTH IN 2 DAYS Resulted 04/29/17 14:30 Blood Peripheral Aerobic Blood Culture - Preliminary NO GROWTH IN 2 DAYS Resulted 04/29/17 14:30 Blood Peripheral Anaerobic Blood Culture - Preliminary NO GROWTH IN 2 DAYS Resulted Imaging Last Impressions Brain MRI 04/29/17 0000 Signed Impressions: Service Date/Time: April 10:08 - CONCLUSION: 1. Moderate microvascular ischemic demyelinative change changes. No acute abnormality. Robert Woods MD Head CT 04/27/171826 Signed Impressions: Service Date/Time: Thursday, April 27, 2017 19:22 - CONCLUSION: 1. No acute intracranial abnormality is identified. 2. Chronic changes include generalized atrophy and moderate to severe periventricular white matter low attenuation characteristic of chronic microvascular ischemia. Jerome Smith MD Chest X-Ray 04/27/171826 Signed Impressions: Service Date/Time: Thursday, April 27, 2017 19:26 - CONCLUSION: No acute cardiopulmonary abnormality is identified. Jerome Smith MD Abdomen/Pelvis CT 04/27/17 0000 Signed Impressions: Service Date/Time: Thursday, April 27, 2017 20:52 - CONCLUSION: 1. No acute finding is identified to explain the abdominal pain. 2. 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 Aneurysm sac size measures 6.4 x 5.5 cm. This could be compared to prior imaging studies to assess for change. 3. Atrophic left kidney likely related to renal vascular disease. 4. Nonacute findings include small hiatal hernia and sigmoid diverticulosis. Jerome Smith MD Physical Exam GENERAL: Patient is an obese, well-developed female, awake, following simple commands, confused, not in respiratory distress. SKIN: Warm and dry. No generalized rash. Has some ecchymoses on her RUE and shoulder and her L big toe. No embolic lesions noted, no ecchymoses and no evidence of embolic lesions. HEAD: Atraumatic. Normocephalic. No temporal wasting, or tenderness. EYES: [place] conjunctiva. No petechia or hemorrhage. Pupils equal, round and reactive to light. Extraocular movements full and intact. No scleral icterus. No injection or drainage. EARS, NOSE AND THROAT: Nose without bleeding or purulent nasal discharge. Mucous membranes moist. Unable to completely examine oropharynx. NECK: Trachea midline. Seems to get more agitated with neck flexion CARDIOVASCULAR: Tachycardic, regular RESPIRATORY: Clear to auscultation. Decreased at bases ABDOMEN: Soft, nondistended. Bowel sounds present and normoactive. No guarding. Seems not tender. No organomegaly. EXTREMITIES: No clubbing, cyanosis, or edema.No joint effusion, has good ROM. No calf tenderness. Well perfused and warm. NEUROLOGICAL: Awake and alert. No facial asymmetry. Motor strength appear symmetrical. No babinski PSYCHIATRIC: lethargic, but easily arousable, cooperative, follows commands. Answers questions but still confused. LINE: No evidence of infection : Martínez in place, urine looks clear Assessment & Plan Remarks IMPRESSION Sepsis on admission, adm with altered mental status, has mildly elevated CSF WBC with neutrophils, ?meningitis - glucose normal and Protein elevated - Fever, leukocytosis, elevated lactic acid, renal insufficiency, altered mental status - CXR clear - UA (+) ? Bacterial vs Viral meningitis. Renal insufficiency, baseline not known (+) BC, ?significance RECOMMENDATION Continue Rocephin IV q12hrs. Repeat 2 BCx Follow C/S Monitor progress Will follow prn over the weekend. If any change in clinical condition or questions please call sooner. to resume care on Wednesday05/03/17. Daya Lazo MD May 01, 2017 12:49
[2017-05-01] MEDS: PANTOPRAZOLE SODIUM 40 MG VIAL IV PUSH SCH (15:42)
[2017-05-01] MEDS: HEPARIN SODIUM - SQ 10,000 UNITS/ML VIAL SQ SCH ×2 (15:43→20:37)
[2017-05-01 21:21] LABS: POTASSIUM 3.7 MEQ/L (3.5-5.1)
[2017-05-02] VITALS (14 sets, daily range): BP systolic 141–159; BP diastolic 63–72; PULSE 61–87; RESP 20–22; TEMP 97.8–98.3; O2SAT 90–96
[2017-05-02] MEDS: INSULIN NovoLIN REGULAR SUPPLEMENTAL SCALE SQ SCH ×6 (02:00→20:42)
[2017-05-02] MEDS: LABETALOL HCL 100 MG/20 ML VIAL IV PUSH PRN (02:05)
[2017-05-02] MEDS: CHLORHEXIDINE GLUCONATE 2 % 1 PACK (2 CLOTHS) TOP SCH (02:09)
[2017-05-02] MEDS: RESP: ALBUTEROL 2.5 MG/IPRATROPIUM 0.5 MG NEB (SCH) NEB ×4 (04:38→20:06)
[2017-05-02] MEDS: METOPROLOL TARTRATE 5 MG/5 ML VIAL IV PUSH SCH ×4 (06:03→23:05)
[2017-05-02] MEDS: SODIUM CHLORIDE 0.9% FLUSH 10 ML FLUSH IV FLUSH SCH ×2 (09:00→20:42)
--- NOTE | 2017-05-02 09:47 | HHI.PR ---
Subjective Remarks Follow-up sepsis/metabolic encephalopathy/rule out meningitis 05/01/17-patient seen and examined, alert but confused and in 2 points restraints. Afebrile 05/02/17-patient seen and examined, some confusion and hallucination overnight. Vitals stable this morning however patient although alert but still confused and not oriented to place date and time. Objective Vitals Vital Signs Date Time Temp Pulse Resp B/P (MAP) Pulse Ox O2 Delivery O2 Flow Rate FiO2 05/02/17 08:00 93 Room Air 05/02/17 07:22 93 Nasal Cannula 2.00 05/02/17 06:00 61 05/02/17 04:00 97.8 73 157/67 (97) 93 05/02/17 04:00 73 05/02/17 02:00 73 05/02/17 00:00 76 05/02/17 00:00 98.2 76 144/65 (91) 93 05/01/17 22:00 72 05/01/17 20:13 94 05/01/17 20:00 98.3 82 161/124 (136) 94 05/01/17 20:00 82 05/01/17 19:00 Room Air 05/01/17 18:00 77 05/01/17 16:00 72 05/01/17 16:00 98.6 71 22 139/61 (87) 94 05/01/17 14:00 80 05/01/17 12:00 98.1 75 21 173/72 (105) 95 05/01/17 12:00 80 05/01/17 10:00 68 I/O 05/01/17 05/01/17 05/01/17 05/02/17 05/02/17 05/02/17 07:00 15:00 23:00 07:00 15:00 23:00 Intake Total 300 ml 247 ml 1827 ml 160 ml Output Total 250 ml 300 ml 300 ml Balance 50 ml 247 ml 1527 ml -140 ml Intake Oral 300 ml 720 ml 60 ml IV Total 247 ml 1107 ml 100 ml Output Urine Total 250 ml 300 ml 300 ml # Bowel Movements 0 Result Diagram: 05/01/17 0456 05/01/172022 Objective Remarks GENERAL: NAD with 2pts restrains SKIN: Warm and dry. HEAD: Normocephalic. EYES: No scleral icterus. No injection or drainage. NECK: Supple, trachea midline. No JVD or lymphadenopathy. CARDIOVASCULAR: Regular rate and rhythm without murmurs, gallops, or rubs. RESPIRATORY: Breath sounds decrease bilaterally. No accessory muscle use. GASTROINTESTINAL: Abdomen soft, non-tender, nondistended. MUSCULOSKELETAL: No cyanosis, or edema. BACK: Nontender without obvious deformity. No CVA tenderness. A/P Problem List: (1) Metabolic encephalopathy ICD Code: G93.41 - Metabolic encephalopathy (2) Sepsis ICD Code: A41.9 - Sepsis, unspecified organism Status: Acute (3) UTI (urinary tract infection) ICD Code: N39.0 - Urinary tract infection, site not specified Status: Acute Assessment and Plan 81-year-old female with Sepsis: Meningitis ruled out Treatment for UTI Continue Rocephin per ID and follow cultures Metabolic Encephalopathy Continue treatment as in above CT brain 04/27 revealed no acute intracranial findings MRI brain 04/29: Moderate microvascular ischemic demyelinative change changes. No acute abnormality. EEG 04/28: Excessive muscle artifact Neurology is following s/p LP on 04/27: Clear CSF 52 WBC, normal glc, elevated protein with neutrophil predominance. Sinus tachycardia currently normal sinus rhythm Hypertension Elevated troponin. In 1 Infrarenal aortic aneurysm status post endovascular stenting Holding lisinopril 40 mg by mouth daily and hydrochlorothiazide 25 mg by mouth daily light of acute kidney injury Echo: 04/29 EF 55-60% On Lopressor 5mg IV Q6, ASA 81mg daily Hiatal hernia Sigmoid diverticulosis CT abdomen/pelvis 04/27 revealed a right infrarenal aneurysm with endograft stent. 6.4 x 5.5 centers. No signs of endovascular leak. Also revealed a hiatal hernia, Sigma diverticulosis. Pantoprazole for GI prophylaxis Glycerin suppositories for bowel regimen BENITO Hypernatremia-resolved Monitor renal function, I/O's, electrolytes replacement as needed. Avoid nephrotoxins IVF D51/2NS@84ml/hr Leukocytosis- Resolved Normocytic anemia Monitor CBC daily. Follow trends Prophylaxis - GI - pantoprazole - DVT - SCD/heparin subcutaneous Problem Qualifiers (1) Sepsis: Qualified Codes: A41.9 - Sepsis, unspecified organism (2) UTI (urinary tract infection): Qualified Codes: N30.00 - Acute cystitis without hematuria Fili Magaña MD May 02, 2017 09:47
[2017-05-02] MEDS: cefTRIAXone INJ 2,000 MG in SODIUM CHLORIDE 0.9% INJ 100 ML IV SCH ×2 (10:43→23:04)
[2017-05-02] MEDS: HEPARIN SODIUM - SQ 10,000 UNITS/ML VIAL SQ SCH ×2 (10:43→20:42)
[2017-05-02] MEDS: ASPIRIN 81 MG CHEW TAB CHEW SCH (10:43)
[2017-05-02] MEDS: PANTOPRAZOLE SODIUM 40 MG VIAL IV PUSH SCH (13:08)
[2017-05-02] MEDS: hydrALAZINE HCL 20 MG/ML VIAL IV PUSH PRN (18:10)
[2017-05-03] VITALS (21 sets, daily range): BP systolic 145–193; BP diastolic 62–108; PULSE 60–80; RESP 18–20; TEMP 97.5–98.4; O2SAT 89–96
[2017-05-03] MEDS: INSULIN NovoLIN REGULAR SUPPLEMENTAL SCALE SQ SCH ×6 (02:00→21:40)
[2017-05-03] MEDS: RESP: ALBUTEROL 2.5 MG/IPRATROPIUM 0.5 MG NEB (SCH) NEB ×4 (04:00→21:53)
[2017-05-03] MEDS: METOPROLOL TARTRATE 5 MG/5 ML VIAL IV PUSH SCH ×3 (05:58→18:23)
[2017-05-03] MEDS: CHLORHEXIDINE GLUCONATE 2 % 1 PACK (2 CLOTHS) TOP SCH (05:58)
--- NOTE | 2017-05-03 08:01 | PD.CARD.PN ---
Subjective Subjective Remarks denies chest pain. She is oriented to place but not time Objective Vital Signs / I&O Vital Signs Date Time Temp Pulse Resp B/P (MAP) Pulse Ox O2 Delivery O2 Flow Rate FiO2 05/03/17 06:00 70 05/03/17 04:00 98.4 71 145/62 (89) 95 05/03/17 04:00 71 05/03/17 02:00 71 05/03/17 00:00 98.2 66 152/68 (96) 95 05/03/17 00:00 66 05/02/17 22:00 79 05/02/17 20:08 93 05/02/17 20:00 87 05/02/17 20:00 98.3 87 158/72 (100) 90 05/02/17 19:00 93 Room Air 05/02/17 18:00 67 05/02/17 16:00 98.2 68 22 143/67 (92) 94 05/02/17 16:00 66 05/02/17 14:00 73 05/02/17 12:00 98.3 73 21 141/63 (89) 95 05/02/17 12:00 71 05/02/17 10:00 67 05/02/17 08:00 93 Room Air 05/02/17 08:00 98.1 67 20 159/67 (97) 96 05/02/17 08:00 66 I/O 05/02/17 05/02/17 05/02/17 05/03/17 05/03/17 05/03/17 07:00 15:00 23:00 07:00 15:00 23:00 Intake Total 160 ml 100 ml 480 ml 200 ml Output Total 300 ml 275 ml 350 ml Balance -140 ml 100 ml 205 ml -150 ml Intake Oral 60 ml 480 ml 100 ml IV Total 100 ml 100 ml 100 ml Output Urine Total 300 ml 275 ml 350 ml # Bowel Movements 1 Physical Exam GENERAL: Well-nourished, well-developed patient in no apparent distress. NECK: No JVD. No carotid bruit. CARDIOVASCULAR: Regular rate and rhythm. S1/S2 no murmur, rub, or gallop. RESPIRATORY: No accessory muscle use. Clear to auscultation. Breath sounds equal bilaterally. GASTROINTESTINAL: Abdomen soft, non-tender, nondistended. MUSCULOSKELETAL: Extremities without clubbing, cyanosis, or edema. Assessment and Plan Problem List: (1) Elevated troponin ICD Codes: R74.8 - Abnormal levels of other serum enzymes Status: Acute Assessment and Plan Elevated troponin is demand mediated, continue medical therapy and have her f/u with a health spa manager in [place]. Sign off call with further questions Yannick Chávez May 03, 2017 08:01
[2017-05-03] MEDS: ASPIRIN 81 MG CHEW TAB CHEW SCH (09:24)
[2017-05-03] MEDS: HEPARIN SODIUM - SQ 10,000 UNITS/ML VIAL SQ SCH ×2 (09:24→21:40)
[2017-05-03] MEDS: SODIUM CHLORIDE 0.9% FLUSH 10 ML FLUSH IV FLUSH SCH ×2 (09:24→20:19)
[2017-05-03] MEDS: LABETALOL HCL 100 MG/20 ML VIAL IV PUSH PRN (09:25)
--- NOTE | 2017-05-03 10:38 | HHI.PR ---
Subjective Remarks Follow-up sepsis/metabolic encephalopathy/rule out meningitis 05/01/17-patient seen and examined, alert but confused and in 2 points restraints. Afebrile 05/02/17-patient seen and examined, some confusion and hallucination overnight. Vitals stable this morning however patient although alert but still confused and not oriented to place date and time. 05/03/17-patient seen and examined; patient is alert and oriented 2, she is asking if she can get out of bed and walk. BP elevated. Objective Vitals Vital Signs Date Time Temp Pulse Resp B/P (MAP) Pulse Ox O2 Delivery O2 Flow Rate FiO2 05/03/17 09:58 93 Nasal Cannula 3.00 05/03/17 06:00 70 05/03/17 04:00 98.4 71 145/62 (89) 95 05/03/17 04:00 71 05/03/17 02:00 71 05/03/17 00:00 98.2 66 152/68 (96) 95 05/03/17 00:00 66 05/02/17 22:00 79 05/02/17 20:08 93 05/02/17 20:00 87 05/02/17 20:00 98.3 87 158/72 (100) 90 05/02/17 19:00 93 Room Air 05/02/17 18:00 67 05/02/17 16:00 98.2 68 22 143/67 (92) 94 05/02/17 16:00 66 05/02/17 14:00 73 05/02/17 12:00 98.3 73 21 141/63 (89) 95 05/02/17 12:00 71 I/O 05/02/17 05/02/17 05/02/17 05/03/17 05/03/17 05/03/17 07:00 15:00 23:00 07:00 15:00 23:00 Intake Total 160 ml 100 ml 480 ml 200 ml Output Total 300 ml 275 ml 350 ml Balance -140 ml 100 ml 205 ml -150 ml Intake Oral 60 ml 480 ml 100 ml IV Total 100 ml 100 ml 100 ml Output Urine Total 300 ml 275 ml 350 ml # Bowel Movements 1 Result Diagram: 05/01/17 0456 05/01/172022 Imaging Last Impressions Brain MRI 04/29/17 0000 Signed Impressions: Service Date/Time: April 10:08 - CONCLUSION: 1. Moderate microvascular ischemic demyelinative change changes. No acute abnormality. Robert Woods MD Head CT 04/27/171826 Signed Impressions: Service Date/Time: Thursday, April 27, 2017 19:22 - CONCLUSION: 1. No acute intracranial abnormality is identified. 2. Chronic changes include generalized atrophy and moderate to severe periventricular white matter low attenuation characteristic of chronic microvascular ischemia. Jerome Smith MD Chest X-Ray 04/27/171826 Signed Impressions: Service Date/Time: Thursday, April 27, 2017 19:26 - CONCLUSION: No acute cardiopulmonary abnormality is identified. Jerome Smith MD Abdomen/Pelvis CT 04/27/17 0000 Signed Impressions: Service Date/Time: Thursday, April 27, 2017 20:52 - CONCLUSION: 1. No acute finding is identified to explain the abdominal pain. 2. 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 Aneurysm sac size measures 6.4 x 5.5 cm. This could be compared to prior imaging studies to assess for change. 3. Atrophic left kidney likely related to renal vascular disease. 4. Nonacute findings include small hiatal hernia and sigmoid diverticulosis. Jerome Smith MD Objective Remarks GENERAL: NAD SKIN: Warm and dry. HEAD: Normocephalic. EYES: No scleral icterus. No injection or drainage. NECK: Supple, trachea midline. No JVD or lymphadenopathy. CARDIOVASCULAR: Regular rate and rhythm without murmurs, gallops, or rubs. RESPIRATORY: Breath sounds decrease bilaterally. No accessory muscle use. GASTROINTESTINAL: Abdomen soft, non-tender, nondistended. MUSCULOSKELETAL: No cyanosis, or edema. BACK: Nontender without obvious deformity. No CVA tenderness. Procedures none A/P Problem List: (1) Metabolic encephalopathy ICD Code: G93.41 - Metabolic encephalopathy (2) Sepsis ICD Code: A41.9 - Sepsis, unspecified organism Status: Acute (3) UTI (urinary tract infection) ICD Code: N39.0 - Urinary tract infection, site not specified Status: Acute Assessment and Plan 81-year-old female with Sepsis: Meningitis ruled out Treatment for UTI Continue Rocephin per ID and follow cultures Repeat blood culture negative to date Metabolic Encephalopathy-resolved Continue treatment as in above CT brain 04/27 revealed no acute intracranial findings MRI brain 04/29: Moderate microvascular ischemic demyelinative change changes. No acute abnormality. EEG 04/28: Excessive muscle artifact Neurology is following s/p LP on 04/27: Clear CSF 52 WBC, normal glc, elevated protein with neutrophil predominance. Sinus tachycardia currently normal sinus rhythm Hypertension Elevated troponin. In 1 Infrarenal aortic aneurysm status post endovascular stenting Resume lisinopril 40 mg by mouth daily and hydrochlorothiazide 25 mg by mouth daily Echo: 04/29 EF 55-60% On Lopressor 5mg IV Q6, ASA 81mg daily Hiatal hernia Sigmoid diverticulosis CT abdomen/pelvis 04/27 revealed a right infrarenal aneurysm with endograft stent. 6.4 x 5.5 centers. No signs of endovascular leak. Also revealed a hiatal hernia, Sigma diverticulosis. Pantoprazole for GI prophylaxis Glycerin suppositories for bowel regimen BENITO Hypernatremia-resolved Monitor renal function, I/O's, electrolytes replacement as needed. Avoid nephrotoxins HIVF Leukocytosis- Resolved Normocytic anemia Monitor CBC daily. Follow trends Prophylaxis - GI - pantoprazole - DVT - SCD/heparin subcutaneous Problem Qualifiers (1) Sepsis: Qualified Codes: A41.9 - Sepsis, unspecified organism (2) UTI (urinary tract infection): Qualified Codes: N30.00 - Acute cystitis without hematuria Fili Magaña MD May 03, 2017 10:38
[2017-05-03] MEDS ORDERED: NON-FORMULARY DRUG (Lisinopril 40 MG) PO SCH (10:45)
[2017-05-03 11:11] LABS: BICARBONATE 21.9 MEQ/L (21.0-32.0); POTASSIUM 3.9 MEQ/L (3.5-5.1)
[2017-05-03] MEDS: cefTRIAXone INJ 2,000 MG in SODIUM CHLORIDE 0.9% INJ 100 ML IV SCH (11:12)
[2017-05-03] MEDS: HYDROCHLOROTHIAZIDE 25 MG TAB PO SCH (11:13)
[2017-05-03] MEDS: LISINOPRIL 20 MG TAB PO SCH (11:13)
--- NOTE | 2017-05-03 14:00 | HHI.IDPN ---
Subjective Subjective Remarks ID Xcover for . Patient is a 81-year-old female, apparently visiting from [place], here with the , and staying in hotel. She was apparently found by the on the floor of the hotel. According to the records, patient has not been feeling well for the past 3 days, however there was no details on what kind of symptoms she was having. When the V[facility] came to the [facility], there was apparently a lot of mass on the floor where the patient was, and there was vomit , blood as well as stool. Patient was brought into the hospital for further evaluation and treatment. She has been febrile since admission. Patient is awake but really not responding or interacting. Her WBC is mildly elevated. Urinalysis unremarkable. Chest x-rays normal. CT of the head shows chronic her disease. CT of the abdomen and pelvis did not show any acute abnormality, but did show evidence of endovascular stent repair of an abdominal aortic aneurysm. Her lactic acid is elevated. Her creatinine is 2.2. Spinal fluid was obtained, and showed 53 WBC, with 93% neutrophils, normal glucose, and elevated protein. Infectious disease consultation has been requested to evaluate the patient with mental status change, and fevers. Notes reviewed Mental status is better Patient remembers she was sick x 3 days before coming to hospital - having vomiting, and had some headache, did not feel good; no resp or complaints Supposed to be here in [place] x 2 weeks Afebrile BP ok CSF C/S negative so far HSV negative Creatinine still elevated, better Brain MRI without contrast negative Antibiotics Rocephin IV q12 hrs Lines Line sites with no e.o infection. Past Medical History Abdominal aneurysm repair The rest is not known Allergies: Coded Allergies: Unable to Assess (Verified Allergy, Unknown, 04/27/17) Objective . Vital Signs Date Time Temp Pulse Resp B/P (MAP) Pulse Ox O2 Delivery O2 Flow Rate FiO2 05/03/17 12:00 67 93 05/03/17 10:00 60 96 05/03/17 09:58 93 Nasal Cannula 3.00 05/03/17 09:39 70 173/78 (109) 89 05/03/17 09:24 72 190/75 (113) 93 05/03/17 09:00 78 178/81 (113) 92 05/03/17 08:07 65 180/78 (112) 95 05/03/17 08:03 69 193/108 (136) 95 05/03/17 08:00 67 95 05/03/17 07:00 99 Nasal Cannula 2.00 05/03/17 06:00 70 05/03/17 04:00 98.4 71 145/62 (89) 95 05/03/17 04:00 71 05/03/17 02:00 71 05/03/17 00:00 98.2 66 152/68 (96) 95 05/03/17 00:00 66 05/02/17 22:00 79 05/02/17 20:08 93 05/02/17 20:00 87 05/02/17 20:00 98.3 87 158/72 (100) 90 05/02/17 19:00 93 Room Air 05/02/17 18:00 67 05/02/17 16:00 98.2 68 22 143/67 (92) 94 05/02/17 16:00 66 05/02/17 14:00 73 . Laboratory Tests Test 05/03/17 09:57 Laboratory Tests Test 05/01/17 20:23 05/03/17 09:57 Potassium Level 3.7 MEQ/L 3.9 MEQ/L Phosphorus Level 3.4 MG/DL Blood Urea Nitrogen 22 MG/DL Creatinine 1.81 MG/DL Random Glucose 86 MG/DL Calcium Level 8.6 MG/DL Sodium Level 144 MEQ/L Chloride Level 115 MEQ/L Carbon Dioxide Level 21.9 MEQ/L Anion Gap 7 MEQ/L Estimat Glomerular Filtration Rate 27 ML/MIN Imaging Last Impressions Brain MRI 04/29/17 0000 Signed Impressions: Service Date/Time: April 10:08 - CONCLUSION: 1. Moderate microvascular ischemic demyelinative change changes. No acute abnormality. Robert Woods MD Head CT 04/27/171826 Signed Impressions: Service Date/Time: Thursday, April 27, 2017 19:22 - CONCLUSION: 1. No acute intracranial abnormality is identified. 2. Chronic changes include generalized atrophy and moderate to severe periventricular white matter low attenuation characteristic of chronic microvascular ischemia. Jerome Smith MD Chest X-Ray 04/27/171826 Signed Impressions: Service Date/Time: Thursday, April 27, 2017 19:26 - CONCLUSION: No acute cardiopulmonary abnormality is identified. Jerome Smith MD Abdomen/Pelvis CT 04/27/17 0000 Signed Impressions: Service Date/Time: Thursday, April 27, 2017 20:52 - CONCLUSION: 1. No acute finding is identified to explain the abdominal pain. 2. 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 Aneurysm sac size measures 6.4 x 5.5 cm. This could be compared to prior imaging studies to assess for change. 3. Atrophic left kidney likely related to renal vascular disease. 4. Nonacute findings include small hiatal hernia and sigmoid diverticulosis. Jerome Smith MD Physical Exam GENERAL: awake, and alert, oriented x 3, not in respiratory distress. SKIN: Warm and dry. No generalized rash. Has some ecchymoses on her RUE and shoulder and her L big toe. No embolic lesions noted, no ecchymoses and no evidence of embolic lesions. HEAD: Atraumatic. Normocephalic. No temporal wasting, or tenderness. EYES: [place] conjunctiva. No petechia or hemorrhage. Pupils equal, round and reactive to light. Extraocular movements full and intact. No scleral icterus. No injection or drainage. EARS, NOSE AND THROAT: Nose without bleeding or purulent nasal discharge. Mucous membranes moist. Unable to completely examine oropharynx. NECK: Trachea midline. Seems to get more agitated with neck flexion CARDIOVASCULAR: regular S1S2 RESPIRATORY: Clear to auscultation. Decreased at bases ABDOMEN: Soft, nondistended. Bowel sounds present and normoactive. No guarding. Seems not tender. No organomegaly. EXTREMITIES: No clubbing, cyanosis, or edema.No joint effusion, has good ROM. No calf tenderness. Well perfused and warm. NEUROLOGICAL: Non-focal PSYCHIATRIC: cooperative LINE: No evidence of infection : Martínez in place, urine looks clear Assessment & Plan Remarks IMPRESSION Sepsis on admission, adm with altered mental status, has mildly elevated CSF WBC with neutrophils, ?meningitis - glucose normal and Protein elevated - Fever, leukocytosis, elevated lactic acid, renal insufficiency, altered mental status - CXR clear - UA (+) ? Viral meningitis. Renal insufficiency, baseline not known (+) BC, 2 diff Coag Neg Staph likely contaminant RECOMMENDATION Stop Rocephin Follow C/S Monitor progress Monitor off Abx Dimayuga,Taya G MD May 03, 2017 14:00
[2017-05-03 14:44] LABS: BASOPHIL # 0.1 TH/MM3 (0-0.2); BASOPHIL % 1.3 % (0.0-2.0); EOSINOPHIL # 0.2 TH/MM3 (0-0.4); EOSINOPHIL % 3.2 % (0.0-4.0); HEMATOCRIT 30.5 % (35.0-46.0); HEMO FLAGS DIFF FINAL; LYMPH % 17.9 % (9.0-44.0); LYMPHOCYTE # 1.1 TH/MM3 (1.0-4.8); MEAN CELL VOLUME 85.2 FL (80.0-100.0); MEAN CORPUSCULAR HEMOGLOBIN 26.4 PG (27.0-34.0); MONO % 10.2 % (0.0-8.0); NEUT % 67.4 % (16.0-70.0); PLATELET COUNT 229 TH/MM3 (150-450); RED BLOOD COUNT 3.58 MIL/MM3 (4.00-5.30); RED CELL DISTRIBUTION WIDTH 17.1 % (11.6-17.2); WHITE BLOOD COUNT 5.9 TH/MM3 (4.0-11.0)
[2017-05-03] MEDS ORDERED: hydrALAZINE HCL 25 MG TAB PO ONE (19:30)
[2017-05-04] VITALS (9 sets, daily range): BP systolic 138–192; BP diastolic 63–80; PULSE 70–93; RESP 16–18; TEMP 96.4–98.5; O2SAT 92–96
[2017-05-04] MEDS: INSULIN NovoLIN REGULAR SUPPLEMENTAL SCALE SQ SCH ×7 (02:00→23:43)
[2017-05-04] MEDS: CHLORHEXIDINE GLUCONATE 2 % 1 PACK (2 CLOTHS) TOP SCH (02:27)
[2017-05-04] MEDS: RESP: ALBUTEROL 2.5 MG/IPRATROPIUM 0.5 MG NEB (SCH) NEB ×4 (03:06→21:19)
[2017-05-04] MEDS: ASPIRIN 81 MG CHEW TAB CHEW SCH (08:35)
[2017-05-04] MEDS: HYDROCHLOROTHIAZIDE 25 MG TAB PO SCH (08:35)
[2017-05-04] MEDS: LISINOPRIL 20 MG TAB PO SCH (08:35)
[2017-05-04] MEDS: SODIUM CHLORIDE 0.9% FLUSH 10 ML FLUSH IV FLUSH SCH ×2 (08:35→21:33)
[2017-05-04] MEDS: NITROGLYCERIN 2% OINT 1 GM PACKET TOPICAL PRN (08:45)
--- NOTE | 2017-05-04 09:58 | HHI.PR ---
Subjective Remarks Follow-up sepsis/metabolic encephalopathy/rule out meningitis 05/01/17-patient seen and examined, alert but confused and in 2 points restraints. Afebrile 05/02/17-patient seen and examined, some confusion and hallucination overnight. Vitals stable this morning however patient although alert but still confused and not oriented to place date and time. 05/03/17-patient seen and examined; patient is alert and oriented 2, she is asking if she can get out of bed and walk. BP elevated. 05/04/17-patient seen and examined, patient states she would like to be discharged to go back to [place]. No acute event overnight. BP up Objective Vitals Vital Signs Date Time Temp Pulse Resp B/P (MAP) Pulse Ox O2 Delivery O2 Flow Rate FiO2 05/04/17 08:45 98.5 71 18 184/76 (112) 92 05/04/17 08:27 93 05/04/17 07:45 Room Air 2.00 21 05/04/17 04:23 98.2 76 16 156/67 (96) 96 05/04/17 02:40 81 05/04/17 00:31 98.2 82 18 165/70 (101) 95 05/03/17 22:51 98.3 79 18 147/71 (96) 92 05/03/17 21:55 96 21 05/03/17 21:32 170/70 (103) 05/03/17 20:33 97.5 80 18 185/98 (127) 95 05/03/17 20:21 95 Room Air 05/03/17 18:25 98.0 69 20 186/80 (115) 93 05/03/17 16:00 77 90 05/03/17 16:00 77 05/03/17 14:37 70 05/03/17 14:00 69 05/03/17 12:00 67 05/03/17 12:00 67 93 05/03/17 10:00 60 96 05/03/17 10:00 60 05/03/17 09:58 93 Nasal Cannula 3.00 I/O 05/03/17 05/03/17 05/03/17 05/04/17 05/04/17 05/04/17 07:00 15:00 23:00 07:00 15:00 23:00 Intake Total 200 ml 100 ml 810 ml Output Total 350 ml 325 ml 300 ml Balance -150 ml 100 ml 485 ml -300 ml Intake Oral 100 ml 810 ml IV Total 100 ml 100 ml Output Urine Total 350 ml 325 ml 300 ml # Bowel Movements 1 Result Diagram: 05/03/17 1427 05/03/17 0957 Imaging Last Impressions Brain MRI 04/29/17 0000 Signed Impressions: Service Date/Time: April 10:08 - CONCLUSION: 1. Moderate microvascular ischemic demyelinative change changes. No acute abnormality. Robert Woods MD Head CT 04/27/171826 Signed Impressions: Service Date/Time: Thursday, April 27, 2017 19:22 - CONCLUSION: 1. No acute intracranial abnormality is identified. 2. Chronic changes include generalized atrophy and moderate to severe periventricular white matter low attenuation characteristic of chronic microvascular ischemia. Jerome Smith MD Chest X-Ray 04/27/171826 Signed Impressions: Service Date/Time: Thursday, April 27, 2017 19:26 - CONCLUSION: No acute cardiopulmonary abnormality is identified. Jerome Smith MD Abdomen/Pelvis CT 04/27/17 0000 Signed Impressions: Service Date/Time: Thursday, April 27, 2017 20:52 - CONCLUSION: 1. No acute finding is identified to explain the abdominal pain. 2. 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 Aneurysm sac size measures 6.4 x 5.5 cm. This could be compared to prior imaging studies to assess for change. 3. Atrophic left kidney likely related to renal vascular disease. 4. Nonacute findings include small hiatal hernia and sigmoid diverticulosis. Jerome Smith MD Objective Remarks GENERAL: NAD SKIN: Warm and dry. HEAD: Normocephalic. EYES: No scleral icterus. No injection or drainage. NECK: Supple, trachea midline. No JVD or lymphadenopathy. CARDIOVASCULAR: Regular rate and rhythm without murmurs, gallops, or rubs. RESPIRATORY: Breath sounds decrease bilaterally. No accessory muscle use. GASTROINTESTINAL: Abdomen soft, non-tender, nondistended. MUSCULOSKELETAL: No cyanosis, or edema. BACK: Nontender without obvious deformity. No CVA tenderness. Procedures none A/P Problem List: (1) Metabolic encephalopathy ICD Code: G93.41 - Metabolic encephalopathy Status: Resolved (2) Sepsis ICD Code: A41.9 - Sepsis, unspecified organism Status: Resolved (3) UTI (urinary tract infection) ICD Code: N39.0 - Urinary tract infection, site not specified Status: Acute Assessment and Plan 81-year-old female with Sepsis:-Resolved Meningitis ruled out Treatment for UTI Currently off antibiotic per ID Repeat blood culture negative to date Metabolic Encephalopathy-resolved CT brain 04/27 revealed no acute intracranial findings MRI brain 04/29: Moderate microvascular ischemic demyelinative change changes. No acute abnormality. EEG 04/28: Excessive muscle artifact Neurology is following s/p LP on 04/27: Clear CSF 52 WBC, normal glc, elevated protein with neutrophil predominance. Sinus tachycardia currently normal sinus rhythm Hypertension Elevated troponin. In 1 Infrarenal aortic aneurysm status post endovascular stenting Continue lisinopril 40 mg by mouth daily and hydrochlorothiazide 25 mg by mouth daily Echo: 04/29 EF 55-60% On Lopressor 5mg IV Q6, ASA 81mg daily Hiatal hernia Sigmoid diverticulosis CT abdomen/pelvis 04/27 revealed a right infrarenal aneurysm with endograft stent. 6.4 x 5.5 centers. No signs of endovascular leak. Also revealed a hiatal hernia, Sigma diverticulosis. Pantoprazole for GI prophylaxis Glycerin suppositories for bowel regimen BENITO Hypernatremia-resolved Monitor renal function, I/O's, electrolytes replacement as needed. Avoid nephrotoxins HIVF Leukocytosis- Resolved Normocytic anemia Monitor CBC daily. Follow trends Prophylaxis - GI - pantoprazole - DVT - SCD/heparin subcutaneous Problem Qualifiers (1) Sepsis: Qualified Codes: A41.9 - Sepsis, unspecified organism (2) UTI (urinary tract infection): Qualified Codes: N30.00 - Acute cystitis without hematuria Fili Magaña MD May 04, 2017 09:58
[2017-05-04] MEDS ORDERED: cloNIDine HCL 0.1 MG TAB PO PRN (10:00)
--- NOTE | 2017-05-04 10:01 | HHI.DS ---
Discharge Summary Admission Date Apr 27, 2017 at 21:57 Discharge Date: May 06, 2017 Admitting Diagnosis Altered mental status, severe sepsis, positive troponin (1) Metabolic encephalopathy ICD Code: G93.41 - Metabolic encephalopathy Status: Resolved (2) Sepsis ICD Code: A41.9 - Sepsis, unspecified organism Status: Resolved (3) UTI (urinary tract infection) ICD Code: N39.0 - Urinary tract infection, site not specified Status: Acute Procedures none Brief History - From Admission 81- year old female brought by EVAC. Per EVAC the patient was found by her on the floor of the hotel room. They report the said that the patient has not been feeling well for the past three days. Upon arrival EVAC reports that there was vomit all over the bed and the floor. The patient has a fever of 100.5, is combative and altered. The patient currently is unable to answer any questions. CBC/BMP: 05/03/17 1427 05/03/17 0957 Significant Findings Laboratory Tests Test 05/01/17 20:23 05/03/17 09:57 05/03/17 14:27 Blood Urea Nitrogen 22 MG/DL (7-18) Creatinine 1.81 MG/DL (0.50-1.00) Chloride Level 115 MEQ/L (98-107) Estimat Glomerular Filtration Rate 27 ML/MIN (>89) Red Blood Count 3.58 MIL/MM3 (4.00-5.30) Hemoglobin 9.5 GM/DL (11.6-15.3) Hematocrit 30.5 % (35.0-46.0) Mean Corpuscular Hemoglobin 26.4 PG (27.0-34.0) Mean Corpuscular Hemoglobin Concent 31.0 % (32.0-36.0) Monocytes (%) (Auto) 10.2 % (0.0-8.0) Imaging Last Impressions Brain MRI 04/29/17 0000 Signed Impressions: Service Date/Time: April 10:08 - CONCLUSION: 1. Moderate microvascular ischemic demyelinative change changes. No acute abnormality. Robert Woods MD Head CT 04/27/17 1827 Signed Impressions: Service Date/Time: Thursday, April 27, 2017 19:22 - CONCLUSION: 1. No acute intracranial abnormality is identified. 2. Chronic changes include generalized atrophy and moderate to severe periventricular white matter low attenuation characteristic of chronic microvascular ischemia. Jerome Smith MD Chest X-Ray 04/27/171826 Signed Impressions: Service Date/Time: Thursday, April 27, 2017 19:26 - CONCLUSION: No acute cardiopulmonary abnormality is identified. Jerome Smith MD Abdomen/Pelvis CT 04/27/17 0000 Signed Impressions: Service Date/Time: Thursday, April 27, 2017 20:52 - CONCLUSION: 1. No acute finding is identified to explain the abdominal pain. 2. 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 Aneurysm sac size measures 6.4 x 5.5 cm. This could be compared to prior imaging studies to assess for change. 3. Atrophic left kidney likely related to renal vascular disease. 4. Nonacute findings include small hiatal hernia and sigmoid diverticulosis. Jerome Smith MD PE at Discharge GENERAL: NAD SKIN: Warm and dry. HEAD: Normocephalic. EYES: No scleral icterus. No injection or drainage. NECK: Supple, trachea midline. No JVD or lymphadenopathy. CARDIOVASCULAR: Regular rate and rhythm without murmurs, gallops, or rubs. RESPIRATORY: Breath sounds decrease bilaterally. No accessory muscle use. GASTROINTESTINAL: Abdomen soft, non-tender, nondistended. MUSCULOSKELETAL: No cyanosis, or edema. BACK: Nontender without obvious deformity. No CVA tenderness. Hospital Course Patient was admitted with sepsis as well as metabolic encephalopathy. She was started on IV antibiotic and treated for possible meningitis until this was ruled out with normal CSF and culture. Patient's mentation improved and subsequently IV antibiotics will be escalated until completely stopped with [place] culture by infectious disease specialist. Cardiology was consulted for elevated cardiac enzyme and ACS was ruled out per protocol with serial cardiac enzyme and EKGs. Physical therapy was consulted. PT and DVT prophylaxis were provided. Renal function improved with IV fluid hydration, and oral antihypertensive medications were re-introduced with monitoring of BP. Patient's condition improved prior to discharge. Pt Condition on Discharge: Stable Discharge Disposition: Discharge to SNF Discharge Time: > 30 minutes Discharge Instructions DIET: Follow Instructions for: Heart Healthy Diet Activities you can perform: Regular-No Restrictions Follow up Referrals: PCP Follow-up - 2-3 Days Continued Medications: Aspirin (Aspirin) 81 Mg Chew 81 MG CHEW DAILY, TAB 0 Refills Hydrochlorothiazide (Hydrochlorothiazide) 25 Mg Tab 25 MG PO DAILY, #30 TAB 0 Refills Lisinopril (Lisinopril) 40 Mg Tab 40 MG PO DAILY for Blood Pressure Management, #30 TAB 0 Refills Tramadol (Tramadol) 50 Mg Tab 50 MG PO Q8H PRN for PAIN, TAB 0 Refills Fili Magaña MD May 04, 2017 10:01
[2017-05-04] MEDS: HEPARIN SODIUM - SQ 10,000 UNITS/ML VIAL SQ SCH ×2 (12:59→22:05)
[2017-05-04] MEDS: hydrALAZINE HCL 20 MG/ML VIAL IV PUSH PRN (13:00)
[2017-05-04] MEDS: ACETAMINOPHEN 325 MG TAB PO PRN ×2 (17:30→23:44)
[2017-05-05] VITALS (9 sets, daily range): BP systolic 123–197; BP diastolic 59–81; PULSE 76–96; RESP 16–19; TEMP 97.9–98.7; O2SAT 93–94
[2017-05-05] MEDS: RESP: ALBUTEROL 2.5 MG/IPRATROPIUM 0.5 MG NEB (SCH) NEB ×4 (03:19→21:52)
[2017-05-05] MEDS: CHLORHEXIDINE GLUCONATE 2 % 1 PACK (2 CLOTHS) TOP SCH (04:00)
[2017-05-05] MEDS: INSULIN NovoLIN REGULAR SUPPLEMENTAL SCALE SQ SCH ×5 (05:19→20:29)
[2017-05-05] MEDS: ASPIRIN 81 MG CHEW TAB CHEW SCH (08:19)
[2017-05-05] MEDS: HYDROCHLOROTHIAZIDE 25 MG TAB PO SCH (08:19)
[2017-05-05] MEDS: LISINOPRIL 20 MG TAB PO SCH (08:19)
[2017-05-05] MEDS: SODIUM CHLORIDE 0.9% FLUSH 10 ML FLUSH IV FLUSH SCH ×2 (08:19→20:28)
--- NOTE | 2017-05-05 11:49 | HHI.PR ---
Subjective Remarks Follow-up sepsis/metabolic encephalopathy/rule out meningitis 05/01/17-patient seen and examined, alert but confused and in 2 points restraints. Afebrile 05/02/17-patient seen and examined, some confusion and hallucination overnight. Vitals stable this morning however patient although alert but still confused and not oriented to place date and time. 05/03/17-patient seen and examined; patient is alert and oriented 2, she is asking if she can get out of bed and walk. BP elevated. 05/04/17-patient seen and examined, patient states she would like to be discharged to go back to [place]. No acute event overnight. BP up 05/05/17-patient seen and examined; she has been accepted to a local rehabilitation facility however discharge is planned for tomorrow. Alert and oriented in no acute event overnight Objective Vitals Vital Signs Date Time Temp Pulse Resp B/P (MAP) Pulse Ox O2 Delivery O2 Flow Rate FiO2 05/05/17 10:38 93 05/05/17 08:50 98.7 78 16 173/74 (107) 94 05/05/17 07:22 Room Air 2.00 21 05/05/17 04:44 98.5 76 16 123/59 (80) 93 05/05/17 01:21 97.9 77 18 147/65 (92) 94 05/04/17 22:46 88 05/04/17 22:23 Room Air 05/04/17 21:41 96.4 93 18 140/64 (89) 94 05/04/17 17:03 98.1 83 18 138/63 (88) 92 I/O 05/04/17 05/04/17 05/04/17 05/05/17 05/05/17 05/05/17 06:59 14:59 22:59 06:59 14:59 22:59 Intake Total 480 ml 240 ml Output Total 300 ml 200 ml 400 ml Balance -300 ml 280 ml -160 ml Intake Oral 480 ml 240 ml Output Urine Total 300 ml 200 ml 400 ml Stool Total 0 ml Bladder Scan Volume Amount 290 ml # Voids 0 Result Diagram: 05/03/17 1427 05/03/17 0957 Objective Remarks GENERAL: NAD SKIN: Warm and dry. HEAD: Normocephalic. EYES: No scleral icterus. No injection or drainage. NECK: Supple, trachea midline. No JVD or lymphadenopathy. CARDIOVASCULAR: Regular rate and rhythm without murmurs, gallops, or rubs. RESPIRATORY: Breath sounds decrease bilaterally. No accessory muscle use. GASTROINTESTINAL: Abdomen soft, non-tender, nondistended. MUSCULOSKELETAL: No cyanosis, or edema. BACK: Nontender without obvious deformity. No CVA tenderness. Procedures none A/P Problem List: (1) Metabolic encephalopathy ICD Code: G93.41 - Metabolic encephalopathy Status: Resolved (2) Sepsis ICD Code: A41.9 - Sepsis, unspecified organism Status: Resolved (3) UTI (urinary tract infection) ICD Code: N39.0 - Urinary tract infection, site not specified Status: Acute Assessment and Plan 81-year-old female with Sepsis:-Resolved Meningitis ruled out Treated for UTI Currently off antibiotic per ID Repeat blood culture negative to date Metabolic Encephalopathy-resolved CT brain 04/27 revealed no acute intracranial findings MRI brain 04/29: Moderate microvascular ischemic demyelinative change changes. No acute abnormality. EEG 04/28: Excessive muscle artifact Neurology is following s/p LP on 04/27: Clear CSF 52 WBC, normal glc, elevated protein with neutrophil predominance. Sinus tachycardia currently normal sinus rhythm Hypertension Elevated troponin. In 1 Infrarenal aortic aneurysm status post endovascular stenting Continue lisinopril 40 mg by mouth daily and hydrochlorothiazide 25 mg by mouth daily Echo: 04/29 EF 55-60% On Lopressor 5mg IV Q6, ASA 81mg daily Hiatal hernia Sigmoid diverticulosis CT abdomen/pelvis 04/27 revealed a right infrarenal aneurysm with endograft stent. 6.4 x 5.5 centers. No signs of endovascular leak. Also revealed a hiatal hernia, Sigma diverticulosis. Pantoprazole for GI prophylaxis BENITO Hypernatremia-resolved Monitor renal function, I/O's, electrolytes replacement as needed. Avoid nephrotoxins HIVF Leukocytosis- Resolved Normocytic anemia Monitor CBC daily. Follow trends Prophylaxis - GI - pantoprazole - DVT - SCD/heparin subcutaneous Discharge Planning Discharged to SNF 05/06/17 Problem Qualifiers (1) Sepsis: Qualified Codes: A41.9 - Sepsis, unspecified organism (2) UTI (urinary tract infection): Qualified Codes: N30.00 - Acute cystitis without hematuria Fili Magaña MD May 05, 2017 11:49
[2017-05-05] MEDS: HEPARIN SODIUM - SQ 10,000 UNITS/ML VIAL SQ SCH ×2 (12:16→22:41)
[2017-05-05] MEDS: hydrALAZINE HCL 20 MG/ML VIAL IV PUSH PRN (17:26)
[2017-05-06 01:21] VITALS: BP 131/73; PULSE 99; RESP 22; TEMP 99.1; O2SAT 94
[2017-05-06] MEDS: INSULIN NovoLIN REGULAR SUPPLEMENTAL SCALE SQ SCH ×4 (02:00→12:30)
[2017-05-06] MEDS: CHLORHEXIDINE GLUCONATE 2 % 1 PACK (2 CLOTHS) TOP SCH (03:09)
[2017-05-06] MEDS: RESP: ALBUTEROL 2.5 MG/IPRATROPIUM 0.5 MG NEB (SCH) NEB ×2 (04:41→09:31)
[2017-05-06 05:59] VITALS: BP 121/60; PULSE 81; RESP 18; TEMP 98.3; O2SAT 92
[2017-05-06 08:00] VITALS: BP 157/71; PULSE 90; RESP 18; TEMP 98.2; O2SAT 92
[2017-05-06] MEDS: LISINOPRIL 20 MG TAB PO SCH (08:35)
[2017-05-06] MEDS: SODIUM CHLORIDE 0.9% FLUSH 10 ML FLUSH IV FLUSH SCH (08:35)
[2017-05-06] MEDS: HYDROCHLOROTHIAZIDE 25 MG TAB PO SCH (08:35)
[2017-05-06] MEDS: ASPIRIN 81 MG CHEW TAB CHEW SCH (08:35)
[2017-05-06 09:32] VITALS: O2SAT 92
[2017-05-06] MEDS: HEPARIN SODIUM - SQ 10,000 UNITS/ML VIAL SQ SCH (09:41)
[2017-05-06 09:47] VITALS: PULSE 95
--- NOTE | 2017-05-06 11:13 | HHI.PR ---
Subjective Remarks Follow-up sepsis/metabolic encephalopathy/rule out meningitis 05/01/17-patient seen and examined, alert but confused and in 2 points restraints. Afebrile 05/02/17-patient seen and examined, some confusion and hallucination overnight. Vitals stable this morning however patient although alert but still confused and not oriented to place date and time. 05/03/17-patient seen and examined; patient is alert and oriented 2, she is asking if she can get out of bed and walk. BP elevated. 05/04/17-patient seen and examined, patient states she would like to be discharged to go back to [place]. No acute event overnight. BP up 05/05/17-patient seen and examined; she has been accepted to a local rehabilitation facility however discharge is planned for tomorrow. Alert and oriented in no acute event overnight 05/06/17-patient seen and examined, no change and patient is stable. Afebrile. Objective Vitals Vital Signs Date Time Temp Pulse Resp B/P (MAP) Pulse Ox O2 Delivery O2 Flow Rate FiO2 05/06/17 09:47 95 05/06/17 09:32 92 05/06/17 08:00 98.2 90 18 157/71 (99) 92 05/06/17 05:59 98.3 81 18 121/60 (80) 92 05/06/17 01:21 99.1 99 22 131/73 (92) 94 05/05/17 22:08 98.1 96 19 168/72 (104) 93 05/05/17 21:54 93 05/05/17 20:00 88 05/05/17 20:00 Room Air 05/05/17 17:17 98.1 77 18 197/81 (119) 93 05/05/17 12:40 98.4 82 18 168/73 (104) 93 I/O 05/05/17 05/05/17 05/05/17 05/06/17 05/06/17 05/06/17 07:00 15:00 23:00 07:00 15:00 23:00 Intake Total 3555 ml Output Total 500 ml 250 ml Balance 3055 ml -250 ml Intake Oral 720 ml IV Total 2510 ml Other 325 ml Output Urine Total 500 ml 250 ml # Voids 5 # Bowel Movements 1 Result Diagram: 05/03/17 1427 05/03/17 0957 Imaging Last Impressions Brain MRI 04/29/17 0000 Signed Impressions: Service Date/Time: April 10:08 - CONCLUSION: 1. Moderate microvascular ischemic demyelinative change changes. No acute abnormality. Robert Woods MD Head CT 04/27/177 Signed Impressions: Service Date/Time: Thursday, April 27, 2017 19:22 - CONCLUSION: 1. No acute intracranial abnormality is identified. 2. Chronic changes include generalized atrophy and moderate to severe periventricular white matter low attenuation characteristic of chronic microvascular ischemia. Jerome Smith MD Chest X-Ray 04/27/171826 Signed Impressions: Service Date/Time: Thursday, April 27, 2017 19:26 - CONCLUSION: No acute cardiopulmonary abnormality is identified. Jerome Smith MD Abdomen/Pelvis CT 04/27/17 0000 Signed Impressions: Service Date/Time: Thursday, April 27, 2017 20:52 - CONCLUSION: 1. No acute finding is identified to explain the abdominal pain. 2. 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 Aneurysm sac size measures 6.4 x 5.5 cm. This could be compared to prior imaging studies to assess for change. 3. Atrophic left kidney likely related to renal vascular disease. 4. Nonacute findings include small hiatal hernia and sigmoid diverticulosis. Jerome Smith MD Objective Remarks GENERAL: NAD SKIN: Warm and dry. HEAD: Normocephalic. EYES: No scleral icterus. No injection or drainage. NECK: Supple, trachea midline. No JVD or lymphadenopathy. CARDIOVASCULAR: Regular rate and rhythm without murmurs, gallops, or rubs. RESPIRATORY: Breath sounds decrease bilaterally. No accessory muscle use. GASTROINTESTINAL: Abdomen soft, non-tender, nondistended. MUSCULOSKELETAL: No cyanosis, or edema. BACK: Nontender without obvious deformity. No CVA tenderness. Procedures none A/P Problem List: (1) Metabolic encephalopathy ICD Code: G93.41 - Metabolic encephalopathy Status: Resolved (2) Sepsis ICD Code: A41.9 - Sepsis, unspecified organism Status: Resolved (3) UTI (urinary tract infection) ICD Code: N39.0 - Urinary tract infection, site not specified Status: Acute Assessment and Plan 81-year-old female with Sepsis:-Resolved Meningitis ruled out Treated for UTI Currently off antibiotic per ID Repeat blood culture negative to date Metabolic Encephalopathy-resolved CT brain 04/27 revealed no acute intracranial findings MRI brain 04/29: Moderate microvascular ischemic demyelinative change changes. No acute abnormality. EEG 04/28: Excessive muscle artifact Neurology ff s/p LP on 04/27: Clear CSF 52 WBC, normal glc, elevated protein with neutrophil predominance. Sinus tachycardia currently normal sinus rhythm Hypertension Elevated troponin. In 1 Infrarenal aortic aneurysm status post endovascular stenting Continue lisinopril 40 mg by mouth daily and hydrochlorothiazide 25 mg by mouth daily Echo: 04/29 EF 55-60% On Lopressor 5mg IV Q6, ASA 81mg daily Hiatal hernia Sigmoid diverticulosis CT abdomen/pelvis 04/27 revealed a right infrarenal aneurysm with endograft stent. 6.4 x 5.5 centers. No signs of endovascular leak. Also revealed a hiatal hernia, Sigma diverticulosis. Pantoprazole for GI prophylaxis BENITO Hypernatremia-resolved Monitor renal function, I/O's, electrolytes replacement as needed. Avoid nephrotoxins HIVF Leukocytosis- Resolved Normocytic anemia Stable Prophylaxis - GI - pantoprazole - DVT - SCD/heparin subcutaneous Discharge Planning Discharged to SNF 05/06/17 Problem Qualifiers (1) Sepsis: Qualified Codes: A41.9 - Sepsis, unspecified organism (2) UTI (urinary tract infection): Qualified Codes: N30.00 - Acute cystitis without hematuria Fili Magaña MD May 06, 2017 11:12
[2017-05-06 12:00] VITALS: BP 145/65; PULSE 75; RESP 18; TEMP 99.4; O2SAT 93
== END 2017-05-06 15:25 | DRG 871 ==
LOC: NEPC 18:13 → NEDA 21:57 → HIMN 04-28 00:20 → N05A 05-03 17:23
PROVIDERS: ADMIT Hospitalist; ATTEND Hospitalist
PROC: 009U3ZX Drainage of Spinal Canal, Percutaneous Approach, Diagnostic (ICD-10-PCS; principal; 2017-04-27)
DX: A41.9 Sepsis, unspecified organism (principal); G93.41 Metabolic encephalopathy; N17.9 Acute kidney failure, unspecified; E87.0 Hyperosmolality and hypernatremia; D64.9 Anemia, unspecified; I10 Essential (primary) hypertension; S00.83XA Contusion of other part of head, initial encounter; N30.00 Acute cystitis without hematuria; E86.0 Dehydration; R65.20 Severe sepsis without septic shock; I71.4 Abdominal aortic aneurysm, without rupture; K44.9 Diaphragmatic hernia without obstruction or gangrene; K57.30 Diverticulosis of large intestine without perforation or abscess without bleeding; R11.10 Vomiting, unspecified; Z79.82 Long term (current) use of aspirin
CPT/HCPCS: 51702; 70450; 70551; 71010; 74176; 76937; 80048; 80053; 80061; 80202; 80307; 81001; 82140; 82550; 82552; 82565; 82607; 82945; 82948; 83605; 83615; 83735; 84100; 84132; 84157; 84443; 84484; 85025; 85610; 85652; 85730; 86140; 86403; 86592; 86618; 87015; 87040; 87070; 87077; 87086; 87186; 87205; 87529; 87641; 89051; 93005; 93306; 94640; 94664; 95819; 96361; 96365; 96368; 96372; 96375; C9113; J0131; J0133; J0290; J0360; J0692; J0696; J1630; J1644; J2060; J2543; J3370; J3480; J7030; J7040; J7050; J7120